=== PATIENT | female | born 1955 | race Caucasian/White ===

== ENCOUNTER 2016-03-08 16:39 | Inpatient (IN) | payer MEDICARE, OTHER ==
[2016-03-08] MEDS ORDERED: LORAZEPAM CARPU-JECT 2 MG/ML DISP.SYRIN ONE (16:45)
[2016-03-08] MEDS ORDERED: ACETAMINOPHEN INJECTION 100 ML IVPB ONE (16:52)
--- NOTE | 2016-03-08 16:53 | PDOC ---
History of Present Illness - General History Source: Family Exam Limitations: No Limitations - History of Present Illness Initial Comments: 03/08/16 19:01 The patient is a 60 year old female, with a significant past medical history of asthma, COPD, migraines, chronic back pain(on pain medication) and possible dx of lung ca<?> per family members, who presents to the emergency department via EMS with family complaining of seizure like activity. The son notes that he found the patient in tonic-clonic seizure and patient has no history of seizure. As per EMS patient was not seizing upon their arrival patient was found to be a little tachycardia, BP of 136/86 and blood sugar was 110. As per son the patient is not very open about her medical history therefore they are not sure of her lung ca. As per son the patient has not been feeling well for couple of days. He notes that she had decreased appetite, diffused body aches and vomiting, and thought hse had the flu. She has been coughing more. According to family she has no history of alcohol or illicit drug use. She sees pain mangement for chronic back pain. PCP - Dr. Giang <Nell West - Last Filed: 03/08/16 19:18> <Astrdi Garcia - Last Filed: 03/08/16 21:27> <Jens Rutledge - Last Filed: 03/11/16 07:32> - General Chief Complaint: Altered Mental Status Stated Complaint: ALTERED MENTAL STATUS Time Seen by Provider: 03/08/16 16:53 Past History <Nell West - Last Filed: 03/08/16 19:18> <Astrid Garcia - Last Filed: 03/08/16 21:27> - Past Medical History Anemia: No Asthma: Yes Cancer: No Cardiac Disorders: No CVA: No COPD: Yes CHF: No Dementia: No Diabetes: No GI Disorders: No Disorders: No HTN: No Hypercholesterolemia: No Liver Disease: No Seizures: No Thyroid Disease: No - Surgical History Abdominal Surgery: No Appendectomy: No Cardiac Surgery: No Cholecystectomy: No Lung Surgery: No Neurologic Surgery: No Orthopedic Surgery: No - Psycho/Social/Smoking Cessation Hx Anxiety: Yes Suicidal Ideation: No Smoking Status: Yes Smoking History: Current every day smoker Number of Cigarettes Smoked Daily: 10 'Breaking Loose' booklet given: 04/26/15 Hx Alcohol Use: No Drug/Substance Use Hx: No Substance Use Type: None <Jens Rutledge - Last Filed: 03/11/16 07:32> - Past Medical History Allergies/Adverse Reactions: Allergies Allergy/AdvReac Type Severity Reaction Status Date / Time aspirin Allergy Verified 03/08/16 16:54 ibuprofen AdvReac Verified 03/08/16 16:54 Home Medications: Ambulatory Orders Pregabalin [Lyrica] 200 mg PO TID 07/16/13 Acetaminophen/Caffeine/Butalb [Fioricet -] 1 tab PO TID PRN 04/26/15 Albuterol Sulfate Inhaler - [Ventolin Hfa Inhaler -] 1 inh PO BID PRN 04/27/15 Hydrocodone/Acetaminophen [Vicodin 5-300 mg Tablet] 1 each PO PRN MDD 6 Oxycodone HCl 20 mg TID PRN 03/10/16 Review of Systems - Review of Systems Able to Perform ROS?: Yes Comments:: 03/08/16 19:02 Unable to obtain due to patient's mental status. <Nell West - Last Filed: 03/08/16 19:18> *Physical Exam - Vital Signs Last Vital Signs Temp Pulse Resp BP Pulse Ox 101 F H 67 24 122/70 93 L 03/08/16 17:25 03/08/16 18:40 03/08/16 18:40 03/08/16 18:40 03/08/16 18:40 - Physical Exam Comments: 03/08/16 19:02 GENERAL: The patient has er eheys closed, withdraws to pain, and sometimes will grunt in response to questions.. HEAD: Normocephalic, atraumatic. EYES: extraocular movements intact, sclera anicteric, conjunctiva clear. ENT: Normal voice, Moist mucous membranes. NECK: Normal range of motion, No JVD LUNGS: rhochourus breath sounds. HEART: Regular rate and rhythm, normal S1 and S2 without murmur, rub or gallop. ABDOMEN: diffusely tender to palpation EXTREMITIES: Normal range of motion, no edema. NEUROLOGICAL: No facial asymmetry, moving all 4 extremities spontaneously and symmetrically PSYCH: Normal mood, normal affect. SKIN: Warm, Dry, normal turgor. <Nell West - Last Filed: 03/08/16 19:18> - Vital Signs Last Vital Signs Temp Pulse Resp BP Pulse Ox 101 F H 67 24 122/70 93 L 03/08/16 17:25 03/08/16 18:40 03/08/16 18:40 03/08/16 18:40 03/08/16 18:40 <GarciaAstrid - Last Filed: 03/08/16 21:27> Heart Score/ECG Review - ECG Impressions Comment:: 03/08/16 18:48 Twelve-lead EKG was performed and reviewed by me. There is normal sinus rhythm with a normal rate. Rate of 93 The axis is normal. The intervals are normal. There is normal R wave progression There are no ST or T wave abnormalities. <Jens Rutledge - Last Filed: 03/11/16 07:32> ED Treatment Course - LABORATORY CBC & Chemistry Diagram: 03/08/16 17:10 03/08/16 17:49 - ADDITIONAL ORDERS Additional order review: Laboratory Results 03/08/16 03/08/16 03/08/16 17:55 17:25 17:10 INR PTT (Actin FS) VBG pH 7.15 L* POC VBG pCO2 63.6 H* POC VBG pO2 56.2 H Sodium Potassium Chloride Carbon Dioxide Anion Gap BUN Creatinine Creat Clearance w eGFR Random Glucose Lactic Acid Cancelled Calcium Total Bilirubin AST ALT Alkaline Phosphatase Creatine Kinase Troponin I Total Protein Albumin Urine Color Yellow Urine Appearance Clear Urine pH 6.0 Ur Specific [place] 1.015 Urine Protein 2+ H Urine Glucose (UA) Negative Urine Ketones 1+ H Urine Blood 2+ H Urine Nitrite Negative Urine Bilirubin Negative Urine Urobilinogen Negative Ur Leukocyte Esterase Negative 03/08/16 03/08/16 17:10 17:10 INR Cancelled PTT (Actin FS) Cancelled VBG pH POC VBG pCO2 POC VBG pO2 Sodium Cancelled Potassium Cancelled Chloride Cancelled Carbon Dioxide Cancelled Anion Gap Cancelled BUN Cancelled Creatinine Cancelled Creat Clearance w eGFR Cancelled Random Glucose Cancelled Lactic Acid Calcium Cancelled Total Bilirubin Cancelled AST Cancelled ALT Cancelled Alkaline Phosphatase Cancelled Creatine Kinase Cancelled Troponin I Cancelled Total Protein Cancelled Albumin Cancelled Urine Color Urine Appearance Urine pH Ur Specific [place] Urine Protein Urine Glucose (UA) Urine Ketones Urine Blood Urine Nitrite Urine Bilirubin Urine Urobilinogen Ur Leukocyte Esterase 03/08/16 17:25 Influenza Types A,B Antigen (YULIYA) - Final Nasopharyngeal Swab - Final 03/08/16 17:10 RBC 6.16 H MCV 93.8 MCHC 31.7 L RDW 15.2 MPV 12.2 H Neutrophils % 80.1 D Lymphocytes % 10.6 D Monocytes % 8.9 Eosinophils % 0.0 D Basophils % 0.4 - RADIOLOGY Radiology Studies Ordered: 03/08/16 18:51 EXAM#: CT/HEAD CT WITHOUT CONTRAST Cranial CT without contrast Clinical information: seizure, evaluate for mass lesion In comparison to a previous CT exam of 07/16/2013 note is made of interval development of a small 1 cm low-attenuation focus within the right posterior frontal lobe at the high convexity level as well as a similar 1 cm focus within the left posterior frontal lobe. No associated mass effect is seen. On the basis of this exam it is uncertain whether these foci represents microvascular ischemic gliosis, chronic or subacute infarction versus less likely representing subtle edema due to underlying lesions. No discrete lesion can be identified on this noncontrast exam. The remainder of the exam appears unchanged. There is no extra-axial fluid collection. No midline displacement is seen. The ventricles and cisterns appear unremarkable. Involutional changes are noted. Impression: In comparison to a prior CT study of 07/16/2013 interval development of small 1 cm right and left posterior frontal hypodensity subcortical foci noted as discussed. MRI evaluation is suggested, preferably without and with intravenous contrast. - Medications Given in the ED: ED Medications Discontinued Medications Generic Name Dose Route Start Last Admin Trade Name Gena PRN Reason Stop Dose Admin Acetaminophen 650 mg 03/08/16 18:29 03/08/16 18:40 Tylenol - PO 03/08/16 18:30 Not Given ONCE ONE Acetaminophen 1,000 mg 03/08/16 17:00 03/08/16 17:00 Ofirmev Injection - IVPB 03/08/16 17:01 1,000 mg NOW ONE Administration Sodium Chloride 1,000 mls @ 1,000 mls/hr 03/08/16 16:54 03/08/16 17:49 Normal Saline - IV 03/08/16 17:53 1,000 mls/hr ASDIR STA Administration Lorazepam 1 mg 03/08/16 17:01 03/08/16 16:50 Ativan Injection - IVPUSH 03/08/16 17:02 1 mg ONCE ONE Administration Morphine Sulfate 4 mg 03/08/16 18:19 03/08/16 18:38 Morphine Injection - IVPUSH 03/08/16 18:20 4 mg ONCE ONE Administration <Luis Westyna - Last Filed: 03/08/16 19:18> - LABORATORY CBC & Chemistry Diagram: 03/08/16 17:10 03/08/16 17:49 - ADDITIONAL ORDERS Additional order review: Laboratory Results 03/08/16 03/08/16 03/08/16 19:15 18:00 17:55 INR PTT (Actin FS) Anticoagulation Therapy Y Puncture Site Right radial ABG pH 7.45 ABG pCO2 at Pt Temp 38.0 ABG pO2 at Pt Temp 58.4 L ABG HCO3 25.9 ABG O2 Sat (Measured) 89.0 L ABG O2 Content 20.7 ABG Base Excess 2.5 H Sabino Test Positive VBG pH 7.15 L* POC VBG pCO2 63.6 H* POC VBG pO2 56.2 H O2 Delivery Device Y Oxygen Flow Rate 21% Vent Mode Y Vent Rate Y Mechanical Rate Y PEEP 0.0 Pressure Support Vent Y Sodium Potassium Chloride Carbon Dioxide Anion Gap BUN Creatinine Creat Clearance w eGFR Random Glucose Lactic Acid 4.258 H* Calcium Total Bilirubin AST ALT Alkaline Phosphatase Creatine Kinase Troponin I Total Protein Albumin Urine Color Urine Appearance Urine pH Ur Specific [place] Urine Protein Urine Glucose (UA) Urine Ketones Urine Blood Urine Nitrite Urine Bilirubin Urine Urobilinogen Ur Leukocyte Esterase Urine RBC Urine WBC Granular Casts Urine Mucus 03/08/16 03/08/16 03/08/16 17:49 17:49 17:49 INR 1.09 PTT (Actin FS) Anticoagulation Therapy Puncture Site ABG pH ABG pCO2 at Pt Temp ABG pO2 at Pt Temp ABG HCO3 ABG O2 Sat (Measured) ABG O2 Content ABG Base Excess Sabino Test VBG pH POC VBG pCO2 POC VBG pO2 O2 Delivery Device Oxygen Flow Rate Vent Mode Vent Rate Mechanical Rate PEEP Pressure Support Vent Sodium 143 Potassium 3.0 L Chloride 103 Carbon Dioxide 27 Anion Gap 13 BUN 13 D Creatinine 0.8 D Creat Clearance w eGFR > 60 Random Glucose 109 H Lactic Acid Calcium 9.3 Total Bilirubin 0.9 D AST 32 D ALT 24 Alkaline Phosphatase 214 H D Creatine Kinase 61 Troponin I 0.10 H Total Protein 6.6 Albumin 3.6 Urine Color Urine Appearance Urine pH Ur Specific [place] Urine Protein Urine Glucose (UA) Urine Ketones Urine Blood Urine Nitrite Urine Bilirubin Urine Urobilinogen Ur Leukocyte Esterase Urine RBC Urine WBC Granular Casts Urine Mucus 03/08/16 03/08/16 03/08/16 17:25 17:10 17:10 INR PTT (Actin FS) Anticoagulation Therapy Puncture Site ABG pH ABG pCO2 at Pt Temp ABG pO2 at Pt Temp ABG HCO3 ABG O2 Sat (Measured) ABG O2 Content ABG Base Excess Sabino Test VBG pH POC VBG pCO2 POC VBG pO2 O2 Delivery Device Oxygen Flow Rate Vent Mode Vent Rate Mechanical Rate PEEP Pressure Support Vent Sodium Cancelled Potassium Cancelled Chloride Cancelled Carbon Dioxide Cancelled Anion Gap Cancelled BUN Cancelled Creatinine Cancelled Creat Clearance w eGFR Cancelled Random Glucose Cancelled Lactic Acid Cancelled Calcium Cancelled Total Bilirubin Cancelled AST Cancelled ALT Cancelled Alkaline Phosphatase Cancelled Creatine Kinase Cancelled Troponin I Cancelled Total Protein Cancelled Albumin Cancelled Urine Color Yellow Urine Appearance Clear Urine pH 6.0 Ur Specific [place] 1.015 Urine Protein 2+ H Urine Glucose (UA) Negative Urine Ketones 1+ H Urine Blood 2+ H Urine Nitrite Negative Urine Bilirubin Negative Urine Urobilinogen Negative Ur Leukocyte Esterase Negative Urine RBC 16 Urine WBC <1 Granular Casts 1 Urine Mucus Rare 03/08/16 17:10 INR Cancelled PTT (Actin FS) Cancelled Anticoagulation Therapy Puncture Site ABG pH ABG pCO2 at Pt Temp ABG pO2 at Pt Temp ABG HCO3 ABG O2 Sat (Measured) ABG O2 Content ABG Base Excess Sabino Test VBG pH POC VBG pCO2 POC VBG pO2 O2 Delivery Device Oxygen Flow Rate Vent Mode Vent Rate Mechanical Rate PEEP Pressure Support Vent Sodium Potassium Chloride Carbon Dioxide Anion Gap BUN Creatinine Creat Clearance w eGFR Random Glucose Lactic Acid Calcium Total Bilirubin AST ALT Alkaline Phosphatase Creatine Kinase Troponin I Total Protein Albumin Urine Color Urine Appearance Urine pH Ur Specific [place] Urine Protein Urine Glucose (UA) Urine Ketones Urine Blood Urine Nitrite Urine Bilirubin Urine Urobilinogen Ur Leukocyte Esterase Urine RBC Urine WBC Granular Casts Urine Mucus 03/08/16 17:25 Influenza Types A,B Antigen (YULIYA) - Final Nasopharyngeal Swab - Final 03/08/16 17:10 RBC 6.16 H MCV 93.8 MCHC 31.7 L RDW 15.2 MPV 12.2 H Neutrophils % 80.1 D Lymphocytes % 10.6 D Monocytes % 8.9 Eosinophils % 0.0 D Basophils % 0.4 - Medications Given in the ED: ED Medications Discontinued Medications Generic Name Dose Route Start Last Admin Trade Name Gena PRN Reason Stop Dose Admin Acetaminophen 650 mg 03/08/16 18:29 03/08/16 18:40 Tylenol - PO 03/08/16 18:30 Not Given ONCE ONE Acetaminophen 1,000 mg 03/08/16 17:00 03/08/16 17:00 Ofirmev Injection - IVPB 03/08/16 17:01 1,000 mg NOW ONE Administration Sodium Chloride 1,000 mls @ 1,000 mls/hr 03/08/16 16:54 03/08/16 17:49 Normal Saline - IV 03/08/16 17:53 1,000 mls/hr ASDIR STA Administration Lorazepam 1 mg 03/08/16 17:01 03/08/16 16:50 Ativan Injection - IVPUSH 03/08/16 17:02 1 mg ONCE ONE Administration Morphine Sulfate 4 mg 03/08/16 18:19 03/08/16 18:38 Morphine Injection - IVPUSH 03/08/16 18:20 4 mg ONCE ONE Administration <Astrid Garcia - Last Filed: 03/08/16 21:27> - LABORATORY CBC & Chemistry Diagram: 03/11/16 05:05 03/11/16 05:05 <Jens Rutledge - Last Filed: 03/11/16 07:32> Medical Decision Making - Medical Decision Making 03/08/16 19:13 A page was put out to [facility] who covers for Dr. Giang. 03/08/16 19:18 Awaiting call back from Dr. Maddox. <Nell West - Last Filed: 03/08/16 19:18> - Medical Decision Making 03/08/16 16:58 60y F hx of chronic back pain, ?possible new ca diagnosis per family? presents with seizure - pt had witnessed tonic clonic seizure per family for several minutes, by the time EMS arrived pt was altered, vitals showed tachycardia, bp was 130s/systolic, bgm was 110 per EMS. On arrival pt had focal seizure, was gazing to the left with jerking of the LUE, seizure lasted for approx 90 seconds , ceased before ativan was given. Pt also noted to be febrile to 101 here. sepsis protocol initiated will obtain CT ofhead to r/o ICH will obtain blood work 03/08/16 18:12 pt now more awake, but moaning, but will not speak and seems to get annoyed when i keep asking her where her pain is. unclear if she cannot speak or does not want to speak. the pts boyfriend is bedside, states that she has been moaning for a couple of days, no associated fever, new cough, she has done that in the past, but it resolved after a few days. family now says there was questionable mass in her pelvis diagnosed several years ago and that she was complaining of pain in the LUQ for the past several days on repeat exam pt has diffuse abdominal tenderness with alot of maoning but will not localize her pain her cbc noted for eleuvated leukocytosis pt hgb noted to be elevated --? dehydration vs. polycytemic - pt sat was noted around 88-91 on RA - pt placed on NC - ?chronic secondary to COPD? pt is a chronic smoker - cxr shows no acute lung changes, ?upper isidoro haziness/infiltrate? vbg shows with elevated pco2 - will repeat as I beleive this is abnormal secondary to her seizure rest of blood work was hemolyzed will obtain ct of abdomen with IV contrast 03/08/16 18:32 03/08/16 18:48 03/08/16 18:51 repeat ABG shows ph is normal. ct head noed for interval development of 1cm right and left posterior frontalhypodensity with subcortical foci - will fu with neuro consult and mri - ? malignancy? jess sign out to dr. garcia to fu with lab results and ct abdomen will likely need admission for further management pt written for [facility] for empric coverage -?abd coverage A portion of this note was documented by scribe services under my direction. I have reviewed the details of the note, within reason, and agree with the documentation with the following case summary and management plan written by me 03/08/16 19:33 case was d/w dr. maddox, pending dispo pt signed out to dr. garcia to fu with results. will dispo after repeat labs and ct are back CRITICAL CARE DOCUMENTATION: I spent ~35 minutes of Critical Care time, excluding separately billable procedures, involving high complexity decision making to assess, manipulate and support vital system function(s) to treat single or multiple vital organ system failure and/or to prevent further life threatening deterioration of the patient' s condition. <Jens Rutledge - Last Filed: 03/11/16 07:32> *DC/Admit/Observation/Transfer - Attestations Scribe Attestion: 03/08/16 19:02 Documentation prepared by FILEMON Hansen, acting as medical equipment sales for Jens Rutledge MD. <Nell West - Last Filed: 03/08/16 19:18> - Discharge Dispostion Admit: Yes <Astrid Garcia - Last Filed: 03/08/16 21:27> <Jens Rutledge - Last Filed: 03/11/16 07:32> Diagnosis at time of Disposition: Altered mental status, Fever, New onset seizure, Elevated troponin, Hypokalemia , Hypoxemia, Fall - Referrals
[2016-03-08] MEDS ORDERED: SODIUM CHLORIDE 1,000 ML IV STA (16:54)
[2016-03-08] MEDS ORDERED: ACETAMINOPHEN 1000 MG/100 ML VIAL (NON FORMULARY) IVPB ONE (17:00)
[2016-03-08] MEDS ORDERED: LORAZEPAM CARPU-JECT 2 MG/ML DISP.SYRIN IVPUSH ONE (17:01)
[2016-03-08 17:16] LABS: BASOPHIL 0.4 % (0-2.0); MCH 29.7 pg (25.7-33.7); MCHC 31.7 g/dl (32.0-36.0); MEAN CELL VOLUME 93.8 fl (80-96); MEAN PLT VOLUME 12.2 fl (7.5-11.1); NEUTROPHILS 80.1 % (42.8-82.8); PLATELET COUNT 189 K/MM3 (134-434); RDW 15.2 % (11.6-15.6); WHITE BLOOD COUNT 14.9 K/mm3 (4.0-10.0)
[2016-03-08 17:51] LABS: URINE APPEARANCE CLEAR; URINE BILIRUBIN NEGATIVE (NEGATIVE); URINE COLOR YELLOW; URINE GLUCOSE (UA) NEGATIVE (NEGATIVE); URINE KETONE 1+ (NEGATIVE); URINE LEUK ESTERASE NEGATIVE (NEGATIVE); URINE NITRITE NEGATIVE (NEGATIVE); URINE UROBILINOGEN NEGATIVE E.U./dl (0.2-1.0)
[2016-03-08 17:52] LABS: URINE BLOOD 2+ (NEGATIVE); URINE PROTEIN 2+ (NEGATIVE)
[2016-03-08 18:01] LABS: VENOUS BLOOD GAS HCO3 21.2 meq/L (22-29)
[2016-03-08 18:03] LABS: VENOUS PH 7.15 (7.31-7.41)
[2016-03-08] MEDS ORDERED: morphine CARPU-JECT 4 MG/1 ML DISP.SYRIN IVPUSH ONE (18:19)
[2016-03-08] MEDS ORDERED: ACETAMINOPHEN 325 MG TABLET (FP) PO ONE (18:29)
[2016-03-08] MEDS ORDERED: morphine CARPU-JECT 4 MG/1 ML DISP.SYRIN ONE (18:29)
[2016-03-08 18:46] LABS: GRANULAR CASTS 1 /lpf; URINE MUCUS RARE; URINE RBC 16 /hpf (0-3); URINE WBC <1 /hpf (3-5)
[2016-03-08 18:59] LABS: ALBUMIN 3.6 g/dl (3.4-5.0); ANION GAP 13 (8-16); BILIRUBIN,TOTAL 0.9 mg/dL (0.2-1.0); CALCIUM 9.3 mg/dL (8.5-10.1); CO2 27 mmol/L (21-32); CREATININE 0.8 mg/dL (0.55-1.02); GLUCOSE,RANDOM 109 mg/dL (74-106); SGOT/AST 32 U/L (15-37); SGPT/ALT 24 U/L (12-78); TOT PROT 6.6 g/dl (6.4-8.2)
[2016-03-08 19:00] LABS: ALK PHOS 214 U/L (45-117); TROPONIN I 0.1 ng/ml (0.00-0.05)
[2016-03-08 19:13] LABS: INR 1.09 (0.82-1.09)
[2016-03-08] MEDS ORDERED: KCL 10 MEQ IVPB 100 ML IVPB SCH (19:15)
[2016-03-08] MEDS ORDERED: PIPERACILLIN/TAZOB 3.375 GM 3.375 GM in DEXTROSE 5%-WATER - 50 ML IVPB ONE (19:16)
[2016-03-08] MEDS ORDERED: KCL 10 MEQ IVPB 100 ML IVPB ONE (19:18)
[2016-03-08 19:19] LABS: ARTERIAL BLOOD GAS PO2 58.4 mmHg (80-100); ARTERIAL BLOOD GAS pH 7.45 (7.35-7.45)
[2016-03-08 19:20] LABS: ALLENS TEST POSITIVE; ART PUNCT SITE RIGHT RADIAL; ARTERIAL BLOOD GAS BASE EXCESS 2.5 meq/l (-2-2); ARTERIAL BLOOD GAS HCO3 25.9 meq/L (22-26); LPM/O2% 21%; PT. ON O2? NO
[2016-03-08] MEDS ORDERED: MAGNESIUM SULF 50% (8.12 MEQ/2 ML-1 GM VIAL) IVPB ONE (19:32)
[2016-03-08 19:39] LABS: URINE MARIJUANA THC NEGATIVE ng/ml (CUTOFF=50)
[2016-03-08] MEDS ORDERED: PIPERACILLIN/TAZOB 3.375 GM 50 ML IVPB ONE (20:09)
[2016-03-08] MEDS ORDERED: MAGNESIUM SULF 50% (8.12 MEQ/2 ML-1 GM VIAL) ONE (20:09)
[2016-03-08 22:32] LABS: TROPONIN I 0.13 ng/ml (0.00-0.05)
[2016-03-08] MEDS ORDERED: morphine CARPU-JECT 2 MG/1 ML DISP.SYRIN IVPUSH ONE ×2 (23:09→23:39)
--- NOTE | 2016-03-08 23:09 | CONSULT ---
Consult Consult Specialty:: Pulm/CC - History of Present Illness History of Present Illness: Pt is a 60yr old woman with PMHx of COPD, migraines and chronic back pain. Per family there is concern for possible lung ca/gastric mass? Pt presents today via EMS with CC of seizure like activity. Per family pt has had AMS x3 days with vomiting. In the ER found to have WBC 14.9 with lactic of 4.258, troponin 0.1, hypoxic on abg with PO2 of 58.4 on RA, K 3.0, tox screen positive for opiates and barbituates (pt takes vicodin at home). Pt admitted to the ICU for further management. Upon assessment pt is combative and appears confused, not responding appropriately to questions. Family at bedside states that pt is "stubborn" but that this is no her baseline. 122/61, HR 50-70s, mid 90%o2 on NC , RR 17 afebrile. - History Source History Provided By: Patient, Family Member, Medical Record Limitations to Obtaining History: Other (clinical condition/poor historian, combative/uncooperative) - Alcohol/Substance Use Hx Alcohol Use: No - Smoking History Smoking history: Current every day smoker Aproximately how many cigarettes per day: 10 Home Medications - Allergies Allergies/Adverse Reactions: Allergies Allergy/AdvReac Type Severity Reaction Status Date / Time aspirin Allergy Verified 03/08/16 16:54 ibuprofen AdvReac Verified 03/08/16 16:54 - Home Medications Home Medications: Ambulatory Orders Pregabalin [Lyrica] 150 mg PO DAILY 07/16/13 Acetaminophen/Caffeine/Butalb [Fioricet -] 1 tab PO Q4H PRN 04/26/15 Albuterol Sulfate Inhaler - [Ventolin Hfa Inhaler -] 1 - 2 inh PO QID 04/27/15 Hydrocodone/Acetaminophen [Vicodin 5-300 mg Tablet] 1 each PO PRN MDD 6 Family Disease History - Family Disease History Family History: Unable to Obtain Review of Systems Unable to obtain ROS, reason: limited exam, denies all Physical Exam Vital Signs: Vital Signs Period Temp Pulse Resp BP Sys/Forrest Pulse Ox Last 24 Hr 101 F-101.0 F 28-122 22-26 120-133/62-88 92-100 Intake & Output 01/1103/06/16 03/07/16 03/08/16 23:59 23:59 23:59 23:59 Intake Total 1000 Output Total 150 Balance 850 Weight 100 lb Constitutional: Yes: Mild Distress, Poor Hygeine, Thin Eyes: Yes: Other (refuses assessment) HENT: Yes: Other (poor oral hygiene, black/red crusted material in mouth) Neck: Yes: WNL Cardiovascular: Yes: S1, S2 Respiratory: Yes: Other (limited exam due to pt condition, no adventitious breath sounds appreciated) Gastrointestinal: Yes: Normal Bowel Sounds. No: Tenderness ...Rectal Exam: Yes: Deferred Renal/: Yes: [place] Present (yellow output) Musculoskeletal: Yes: WNL Extremities: Yes: WNL Edema: No Peripheral Pulses WNL: Yes (+2 bilateral pedal pulses) Integumentary: Yes: Other (slightly dry) Neurological: Yes: Confusion Psychiatric: Yes: Agitated Labs: Abnormal Lab Results 03/08/16 03/08/16 03/08/16 17:10 17:25 17:49 WBC 14.9 H D RBC 6.16 H Hgb 18.3 H Hct 57.8 H MCHC 31.7 L MPV 12.2 H ABG pO2 at Pt Temp ABG O2 Sat (Measured) ABG Base Excess VBG pH POC VBG pCO2 POC VBG pO2 Potassium Random Glucose Lactic Acid Alkaline Phosphatase Troponin I 0.10 H Urine Protein 2+ H Urine Ketones 1+ H Urine Blood 2+ H 03/08/16 03/08/16 03/08/16 17:49 17:55 18:00 WBC RBC Hgb Hct MCHC MPV ABG pO2 at Pt Temp ABG O2 Sat (Measured) ABG Base Excess VBG pH 7.15 L* POC VBG pCO2 63.6 H* POC VBG pO2 56.2 H Potassium 3.0 L Random Glucose 109 H Lactic Acid 4.258 H* Alkaline Phosphatase 214 H D Troponin I Urine Protein Urine Ketones Urine Blood 03/08/16 03/08/16 19:15 21:52 WBC RBC Hgb Hct MCHC MPV ABG pO2 at Pt Temp 58.4 L ABG O2 Sat (Measured) 89.0 L ABG Base Excess 2.5 H VBG pH POC VBG pCO2 POC VBG pO2 Potassium Random Glucose Lactic Acid Alkaline Phosphatase Troponin I 0.13 H Urine Protein Urine Ketones Urine Blood Imaging - Results Chest X-ray: Image Reviewed X-ray: Image Reviewed Cat Scan: Report Reviewed (ab/pel prelim, head ct) Assessment/Plan Pt is a 60yr old woman with PMHx of COPD, migraines and chronic back pain. Now in the ICU for management of possible new onset seizure activity with AMS, leukocytosis. Pulm: Hypoxia, likely chronic -O2 support for sat >90% -Nebulizers standing and prn -Consider chest CT Neuro: Possible seizure, AMS -Consult -s/p head CT, f/u MRI -Seizure precautions -Ativan prn -Neuro checks -Consider EEG -Pain management (will use morphine for now in setting of +trop) ID: Leukocytosis, lactic acidosis -Consult -f/u cultures -Empiric Ceftriaxone, Vanc, Azithro started Cardiac: +troponin. No endorsed chest pain, no ST elevation or depression appreciated. ACS vs demand -Consult -Trend troponin -f/u repeat EKG GI: Reported vomiting, reduced po intake. Pt endorsing abdominal pain. Pt with significant nsaid use, concerning for gi ulcer. family states possible gi mass? -Consult -f/u ab/pel ct -Will start daily ppi -Unable to give bismuth due to asa allergy -Stool softener Renal: Hemoconcentrated, likely from dehydration -IVF as tolerated -Replete electrolytes prn Prophylactic -Continue home Lyrica/Fioricet -DVT
[2016-03-08] MEDS ORDERED: VANCOMYCIN 1 GRAM (PRE-DOCKED) 250 ML IVPB ONE (23:16)
[2016-03-08] MEDS ORDERED: LACTATED RINGERS SOLUTION 1,000 ML IV SCH (23:30)
[2016-03-08] MEDS ORDERED: DEXTROSE 5%-LACTATED RINGERS 1,000 ML IV SCH (23:30)
[2016-03-08 23:34] LABS: MAGNESIUM 3.4 mg/dL (1.8-2.4); PHOSPHOROUS 3.3 mg/dL (2.5-4.9)
[2016-03-08] MEDS ORDERED: ALBUTEROL SO4 0.083% IH SOL 2.5 MG/3 ML VIAL.NEB. NEB PRN (23:40)
[2016-03-09] MEDS ORDERED: AZITHROMYCIN IVPB 500 MG in DEXTROSE 5%-WATER - 250 ML IVPB ONE (00:11)
[2016-03-09] MEDS ORDERED: SODIUM CHLORIDE 500 ML IV STA (00:17)
[2016-03-09] MEDS ORDERED: PREGABALIN 75 MG CAPSULE PO ONE (00:46)
[2016-03-09] MEDS ORDERED: POLYETHYLENE GLYCOL 3350 119 GM BTL PO ONE (00:50)
[2016-03-09] MEDS ORDERED: AZITHROMYCIN IVPB 500 MG/250 ML D5W PRE-DOCKED IVPB ONE (01:00)
[2016-03-09] MEDS: DEXTROSE 5%-LACTATED RINGERS 1,000 ML IV SCH ×3 (01:12→23:53)
[2016-03-09 02:07] LABS: TROPONIN I 0.12 ng/ml (0.00-0.05)
[2016-03-09 02:49] VITALS: BMI 15.1
[2016-03-09] MEDS ORDERED: LORAZEPAM CARPU-JECT 2 MG/ML DISP.SYRIN IVPUSH PRN (05:01)
[2016-03-09] MEDS ORDERED: CEFTRIAXONE 1 GM in DEXTROSE 5%-WATER - 50 ML IVPB SCH (06:00)
[2016-03-09 06:31] LABS: BASOPHIL 0.2 % (0-2.0); MCHC 33.3 g/dl (32.0-36.0); MEAN CELL VOLUME 93.3 fl (80-96); MEAN PLT VOLUME 10.8 fl (7.5-11.1); NEUTROPHILS 78.3 % (42.8-82.8); PLATELET COUNT 99 K/MM3 (134-434); RDW 14.7 % (11.6-15.6)
[2016-03-09 06:49] LABS: ALBUMIN 3.1 g/dl (3.4-5.0); ANION GAP 11 (8-16); BILIRUBIN,TOTAL 1.2 mg/dL (0.2-1.0); CALCIUM 8.3 mg/dL (8.5-10.1); CO2 28 mmol/L (21-32); CREATININE 0.5 mg/dL (0.55-1.02); GLUCOSE,RANDOM 111 mg/dL (74-106); PHOSPHOROUS 3.1 mg/dL (2.5-4.9); SGOT/AST 48 U/L (15-37); SGPT/ALT 32 U/L (12-78); TOT PROT 5.8 g/dl (6.4-8.2)
[2016-03-09 06:52] LABS: ALK PHOS 192 U/L (45-117); TROPONIN I 0.09 ng/ml (0.00-0.05)
[2016-03-09] MEDS: cefTRIAXone 1 GM/50 ML BAG (PRE-DOCKED) IVPB SCH (07:16)
[2016-03-09] MEDS: KCL 10 MEQ IVPB 100 ML IVPB SCH ×8 (07:17→23:52)
[2016-03-09] MEDS: ALBUTEROL SO4 2.5/IPRATROPIUM 0.5 INH SOL 3 ML VIAL.NEB. NEB SCH ×3 (07:46→21:56)
[2016-03-09] MEDS: morphine CARPU-JECT 2 MG/1 ML DISP.SYRIN IVPUSH PRN ×3 (08:00→22:35)
--- NOTE | 2016-03-09 08:42 | PN ---
Progress Note (short form) - Note Progress Note: Pulm/CCM Pt Seen and examined in the ICU 24 HR: was intermittently agitated overnight this morning conversant but evasive and despondent VS stable no further seizure activity awaiting read of CTAB Ambulatory Orders Pregabalin [Lyrica] 150 mg PO DAILY 07/16/13 Acetaminophen/Caffeine/Butalb [Fioricet -] 1 tab PO Q4H PRN 04/26/15 Albuterol Sulfate Inhaler - [Ventolin Hfa Inhaler -] 1 - 2 inh PO QID 04/27/15 Hydrocodone/Acetaminophen [Vicodin 5-300 mg Tablet] 1 each PO PRN MDD 6 Active Medications Albuterol Sulfate (Ventolin 0.083% Nebulizer Soln -) 1 amp NEB Q4H PRN PRN Reason: SHORT OF BREATH/WHEEZING Albuterol/Ipratropium (Duoneb -) 1 amp NEB TIDR [facility] Last Admin: 03/09/16 07:46 Dose: Not Given Ceftriaxone Sodium (Rocephin 1gm Ivpb (Pre-Docked)) 1 gm IVPB DAILY@06 [facility] Last Admin: 03/09/16 07:16 Dose: 1 gm Dextrose/Lactated Ringer's (D5-Lr -) 1,000 mls @ 100 mls/hr IV ASDIR [facility] Last Admin: 03/09/16 01:12 Dose: 100 mls/hr Azithromycin 250 mg/ Dextrose 250 mls @ 250 mls/hr IVPB DAILY@2200 [facility] Potassium Chloride (Potassium Chloride 10 Meq Premix Ivpb -) 100 mls @ 100 mls/ hr IVPB Q60M [facility] Stop: 03/09/16 09:59 Last Admin: 03/09/16 07:17 Dose: 100 mls/hr Lorazepam (Ativan Injection -) 1 mg IVPUSH Q6H PRN PRN Reason: seizure Stop: 03/10/16 05:00 Morphine Sulfate (Morphine Injection -) 1.5 mg IVPUSH Q3H PRN PRN Reason: PAIN Last Admin: 03/09/16 08:00 Dose: 1.5 mg Pantoprazole Sodium (Protonix -) 40 mg PO DAILY [facility] Pregabalin (Lyrica -) 100 mg PO BID [facility] Senna (Senna -) 1 tab PO HS [facility] CBC, BMP 03/09/16 05:20 03/09/16 05:20 Troponin, BNP 03/08/16 03/08/16 03/08/16 17:10 17:49 21:52 Troponin I Cancelled 0.10 H 0.13 H B-Natriuretic Peptide 3402.04 H 03/09/16 03/09/16 01:30 05:20 Troponin I 0.12 H 0.09 H B-Natriuretic Peptide Microbiology 03/08/16 17:25 Nasopharyngeal Swab Influenza Types A,B Antigen (YULIYA) - Final ---negative 03/08/16 17:25 Nasopharyngeal Swab - Final Vital Signs Temp 990.8 F H 03/08/16 23:00 Pulse 87 03/09/16 05:00 Resp 20 03/09/16 05:00 BP 129/74 03/09/16 05:00 Pulse Ox 92 L 03/08/16 23:00 Intake & Output 03/08/16 03/08/16 03/09/16 11:59 23:59 11:59 Intake Total 1000 1950 Output Total 150 1200 Balance 850 750 Weight 41.277 kg Intake: IV 1000 1300 D5-Lr - 1,000 ml @ 100 800 mls/hr IV ASDIR [facility] Rx#: [id number] Normal Saline - 500 ml @ 500 500 mls/hr IV ASDIR STA Rx#:[id number] IVPB 650 Output: Urine 150 1200 [place] 150 1200 Other: Voiding Method Indwelling Catheter Height 5 ft 5 in Body Mass Index (BMI) 15.1 Weight Measurement Method Built in [facility] CXR: no infiltrate, upper lobe chronic changes PE: Gen: thin frail woman, awake INAD HEENT: PERRL PULM: clear, no wheezes Pt is a 60yr old woman with PMHx of COPD, migraines and chronic back pain. Now in the ICU for management of possible new onset seizure activity with AMS, leukocytosis. Pulm: Hypoxia, likely chronic given polycythemia. 40+ pack year hx, actively smoking -O2 support for sat >90% -Nebulizers standing and prn -tobacco counseling -nicotine patch Neuro: Possible seizure, AMS - Neuro consulted in ED. No AE started -s/p head CT, f/u MRI once -Seizure precautions -Ativan if active sz -Neuro checks -can restart lyrica in am if ok with Neuro ID: Leukocytosis, lactic acidosis resolved, -f/u cultures -Empiric Ceftriaxone, Vanc, Azithro started however do not have localizing source Cardiac: weakly +troponin, resolved. No endorsed chest pain, no ST elevation or depression appreciated. ACS vs demand -troponin downtrending -EKG as needed -stress test/echo can be done as outpt GI: Reported vomiting, reduced po intake. Pt endorsing abdominal pain. Pt with significant nsaid use, concerning for gi ulcer. family states hx of mass on ovary long standing. Relates anorexia and unintentional weight loss. 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
[2016-03-09] MEDS: PANTOPRAZOLE 40 MG TABLET (FP) PO SCH (09:21)
[2016-03-09] MEDS: PREGABALIN 50 MG CAPSULE PO SCH ×2 (09:21→21:38)
[2016-03-09] MEDS ORDERED: PREGABALIN 75 MG CAPSULE PO SCH (10:00)
--- NOTE | 2016-03-09 10:14 | HP ---
Admitting History and Physical - Admission History of Present Illness: 60 year old female, with a significant past medical history of asthma, COPD, migraines, chronic back pain(on pain medication) and possible dx of lung ca<?> per family members, who presents to the emergency department via EMS with family complaining of seizure like activity. The son notes that he found the patient in tonic-clonic seizure and patient has no history of seizure. As per EMS patient was not seizing upon their arrival patient was found to be a little tachycardia, BP of 136/86 and blood sugar was 110. As per son the patient is not very open about her medical history therefore they are not sure of her lung ca. As per son the patient has not been feeling well for couple of days. He notes that she had decreased appetite, diffused body aches and vomiting, and thought hse had the flu. She has been coughing more. According to family she has no history of alcohol or illicit drug use. She sees pain mangement for chronic back pain. - Past Medical History FRONT OFFICE SPEC: Yes: Migraine Cardiovascular: Yes: HTN Pulmonary: Yes: COPD, Other (QUESTION LUNG CA) Gastrointestinal: Yes: Other (GASTRIC MASS?? PER FAMILY) ...: No - Smoking History Smoking history: Current every day smoker Have you smoked in the past 12 months: Yes Aproximately how many cigarettes per day: 10 - Alcohol/Substance Use Hx Alcohol Use: No Home Medications - Allergies Allergies/Adverse Reactions: Allergies Allergy/AdvReac Type Severity Reaction Status Date / Time aspirin Allergy Verified 03/08/16 16:54 ibuprofen AdvReac Verified 03/08/16 16:54 - Home Medications Home Medications: Ambulatory Orders Pregabalin [Lyrica] 150 mg PO DAILY 07/16/13 Acetaminophen/Caffeine/Butalb [Fioricet -] 1 tab PO Q4H PRN 04/26/15 Albuterol Sulfate Inhaler - [Ventolin Hfa Inhaler -] 1 - 2 inh PO QID 04/27/15 Hydrocodone/Acetaminophen [Vicodin 5-300 mg Tablet] 1 each PO PRN MDD 6 Review of Systems - Review of Systems Constitutional: reports: Lethargy, Weakness Cardiovascular: denies: Chest Pain Respiratory: reports: SOB Gastrointestinal: reports: Abdominal Pain Neurological: reports: Seizure, Weakness Physical Examination Vital Signs: Vital Signs Temperature 990.8 F H 03/08/16 23:00 Pulse Rate 82 03/09/16 08:54 Respiratory Rate 20 03/09/16 08:54 Blood Pressure 128/71 03/09/16 08:54 O2 Sat by Pulse Oximetry (%) 92 L 03/08/16 23:00 Cardiovascular: Yes: S1, S2 Respiratory: Yes: Diminished, On Nasal O2 Gastrointestinal: Yes: Normal Bowel Sounds, Soft. No: Tenderness Edema: No Neurological: Yes: Lethargy, Weakness Labs: CBC, BMP 03/09/16 05:20 03/09/16 05:20 Imaging - Results Cat Scan: Report Reviewed (OF HEAD --LUCENCY) Problem List - Problems (1) Altered mental status Assessment/Plan: MAYBE DUE TO SEIZURE MONITOR MRI OF HEAD--R/O METS Code(s): R41.82 - ALTERED MENTAL STATUS, UNSPECIFIED (2) Elevated troponin Assessment/Plan: FOLLOW CE EKG CARDIO Code(s): R79.89 - OTHER SPECIFIED ABNORMAL FINDINGS OF BLOOD CHEMISTRY (3) Fever Assessment/Plan: R/O PNA R/O COLITIS IV BAX ID Code(s): R50.9 - FEVER, UNSPECIFIED (4) Hypokalemia Assessment/Plan: REPLACE AND MONITOR Code(s): E87.6 - HYPOKALEMIA (5) New onset seizure Assessment/Plan: MAY BE DUE TO LESIONS MRI NEURO Code(s): R56.9 - UNSPECIFIED CONVULSIONS (6) Brain lesion Assessment/Plan: MRI Code(s): G93.9 - DISORDER OF BRAIN, UNSPECIFIED (7) Cancer Assessment/Plan: BY HISTORY--OBTAIN RECORDS Code(s): C80.1 - MALIGNANT (PRIMARY) NEOPLASM, UNSPECIFIED
[2016-03-09] MEDS ORDERED: NICOTINE 14 MG/24 HOURS TOPICAL PATCH TD SCH (11:00)
--- NOTE | 2016-03-09 11:07 | PN ---
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
--- NOTE | 2016-03-09 12:09 | CONSULT ---
Consult Consult Specialty:: GI Referred by:: Dr Salgado Reason for Consultation:: weight loss-R/O malignancy - History of Present Illness Chief Complaint: seizure activity, recent L sided abdominal pain History of Present Illness: 60 F with h/o COPD, chronic back pain (Vicodin BID) admitted after being found at home with seizure-like activity. 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 CT abd/pelvis shows thickening of L colon described as possible colitis. She states she has normal BM daily with no blood. states she has been c/o L sided abdominal pain recently. She denies early satiety but daughter states 30 lb weight loss over the past 6 months. She was noted to have a lactate of 4.25 on admission and was hypoxic with pO2 of 58. 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 PER FAMILY) ...: No - Alcohol/Substance Use Hx Alcohol Use: No - Smoking History Smoking history: Current every day smoker Have you smoked in the past 12 months: Yes Aproximately how many cigarettes per day: 10 Home Medications - Allergies Allergies/Adverse Reactions: Allergies Allergy/AdvReac Type Severity Reaction Status Date / Time aspirin Allergy Verified 03/08/16 16:54 ibuprofen AdvReac Verified 03/08/16 16:54 - Home Medications Home Medications: Ambulatory Orders Pregabalin [Lyrica] 150 mg PO DAILY 07/16/13 Acetaminophen/Caffeine/Butalb [Fioricet -] 1 tab PO Q4H PRN 04/26/15 Albuterol Sulfate Inhaler - [Ventolin Hfa Inhaler -] 1 - 2 inh PO QID 04/27/15 Hydrocodone/Acetaminophen [Vicodin 5-300 mg Tablet] 1 each PO PRN MDD 6 Physical Exam-GI Vital Signs: Vital Signs Temperature 98.3 F 03/09/16 10:00 Pulse Rate 76 03/09/16 10:32 Respiratory Rate 16 03/09/16 10:00 Blood Pressure 134/70 03/09/16 10:00 O2 Sat by Pulse Oximetry (%) 98 03/09/16 11:13 Constitutional: Yes: Cachectic HENT: Yes: Normocephalic Neck: Yes: Supple Cardiovascular: Yes: Regular Rate and Rhythm Respiratory: Yes: CTA Bilaterally Gastrointestinal Inspection: Yes: Other (scaphoid) ...Auscultate: Yes: Normoactive Bowel Sounds ...Palpate: Yes: Soft. No: Tenderness Labs: CBC, BMP 03/09/16 05:20 03/09/16 05:20 INR, PTT INR 1.09 (0.82-1.09) 03/08/16 17:49 Hepatic Panel Total Bilirubin 1.2 mg/dL (0.2-1.0) H D 03/09/16 05:20 AST 48 U/L (15-37) H D 03/09/16 05:20 ALT 32 U/L (12-78) D 03/09/16 05:20 Alkaline Phosphatase 192 U/L (45-117) H 03/09/16 05:20 Albumin 3.1 g/dl (3.4-5.0) L 03/09/16 05:20 Abnormal Lab Results 03/08/16 03/08/16 03/08/16 17:10 17:25 17:49 WBC 14.9 H D RBC 6.16 H Hgb 18.3 H Hct 57.8 H MCHC 31.7 L Plt Count MPV 12.2 H Monocytes % ABG pO2 at Pt Temp ABG O2 Sat (Measured) ABG Base Excess VBG pH POC VBG pCO2 POC VBG pO2 Potassium BUN Creatinine Random Glucose Lactic Acid Calcium Magnesium Total Bilirubin AST Alkaline Phosphatase Creatine Kinase Troponin I 0.10 H B-Natriuretic Peptide Total Protein Albumin Urine Protein 2+ H Urine Ketones 1+ H Urine Blood 2+ H 03/08/16 03/08/16 03/08/16 17:49 17:55 18:00 WBC RBC Hgb Hct MCHC Plt Count MPV Monocytes % ABG pO2 at Pt Temp ABG O2 Sat (Measured) ABG Base Excess VBG pH 7.15 L* POC VBG pCO2 63.6 H* POC VBG pO2 56.2 H Potassium 3.0 L BUN Creatinine Random Glucose 109 H Lactic Acid 4.258 H* Calcium Magnesium Total Bilirubin AST Alkaline Phosphatase 214 H D Creatine Kinase Troponin I B-Natriuretic Peptide Total Protein Albumin Urine Protein Urine Ketones Urine Blood 03/08/16 03/08/16 03/09/16 19:15 21:52 01:30 WBC RBC Hgb Hct MCHC Plt Count MPV Monocytes % ABG pO2 at Pt Temp 58.4 L ABG O2 Sat (Measured) 89.0 L ABG Base Excess 2.5 H VBG pH POC VBG pCO2 POC VBG pO2 Potassium BUN Creatinine Random Glucose Lactic Acid Calcium Magnesium 3.4 H Total Bilirubin AST Alkaline Phosphatase Creatine Kinase Troponin I 0.13 H 0.12 H B-Natriuretic Peptide 3402.04 H Total Protein Albumin Urine Protein Urine Ketones Urine Blood 03/09/16 03/09/16 05:20 05:20 WBC 11.0 H RBC 5.24 H Hgb 16.3 H D Hct 48.9 H D MCHC Plt Count 99 L D MPV Monocytes % 12.4 H ABG pO2 at Pt Temp ABG O2 Sat (Measured) ABG Base Excess VBG pH POC VBG pCO2 POC VBG pO2 Potassium 2.3 L* D BUN 6 L D Creatinine 0.5 L D Random Glucose 111 H Lactic Acid Calcium 8.3 L Magnesium Total Bilirubin 1.2 H D AST 48 H D Alkaline Phosphatase 192 H Creatine Kinase 199 H D Troponin I 0.09 H B-Natriuretic Peptide Total Protein 5.8 L Albumin 3.1 L Urine Protein Urine Ketones Urine Blood INR, PTT INR 1.09 (0.82-1.09) 03/08/16 17:49 Imaging - Results Cat Scan: Report Reviewed (mild wall thickening of the L colon suggesting possible colitis.) Assessment/Plan 60 F with above history admitted with seizure. AMS and CT findings in the brain. CT shows no evidence of a gastric mass and she has no pain or tenderness in the abdomen at this time. Rec: 1. Finding of colitis on CT No clinical evidence. Patient denies diarrhea or blood in stool but question reliability. Should have EGD and colon once acute illness resolves 2. Cachexia Patient appears malnourished. Malignancy w/u to be done including procedures when appropriate Check cortisol and tumor markers. MRI/MRCP to r/o pancreatic/biliary malignancy 3. Seizure with CT finding: neuro w/u in progress incl MR of head
--- NOTE | 2016-03-09 12:16 | CONSULT ---
Consult - text type - Consultation Consultation Note: Neurology The patient is a 60 year old female, with a significant past medical history of asthma, COPD, migraines, chronic back pain(on pain medication) and possible lung cancer per family members, who presents to the emergency department via EMS with family complaining of convulsion. The son notes that he found the patient in tonic-clonic seizure and patient has no history of seizure. CT head completed and demonstrated small 1cm area of hypodensity. Patient ordered for MRI brain to further evaluate. Patient's seizures resolved with Ativan. Patient has not been feeling well for couple of days. She has had decreased appetite, diffused body aches and vomiting, and thought she had the flu. She has been coughing more. According to family she has no history of alcohol or illicit drug use. She sees pain mangement for chronic back pain. Past History - Past Medical History Anemia: No Asthma: Yes Cancer: No Cardiac Disorders: No CVA: No COPD: Yes CHF: No Dementia: No Diabetes: No GI Disorders: No Disorders: No HTN: No Hypercholesterolemia: No Liver Disease: No Seizures: No Thyroid Disease: No - Surgical History Abdominal Surgery: No Appendectomy: No Cardiac Surgery: No Cholecystectomy: No Lung Surgery: No Neurologic Surgery: No Orthopedic Surgery: No - Psycho/Social/Smoking Cessation Hx Anxiety: Yes Suicidal Ideation: No Smoking Status: Yes Smoking History: Current every day smoker Number of Cigarettes Smoked Daily: 10 'Breaking Loose' booklet given: 04/26/15 Hx Alcohol Use: No Drug/Substance Use Hx: No Substance Use Type: None - Past Medical History Allergies/Adverse Reactions: Allergies Allergy/AdvReac Type Severity Reaction Status Date / Time aspirin Allergy Verified 03/08/16 16:54 ibuprofen AdvReac Verified 03/08/16 16:54 Home Medications: Ambulatory Orders Pregabalin [Lyrica] 150 mg PO DAILY 07/16/13 Acetaminophen/Caffeine/Butalb [Fioricet -] 1 tab PO Q4H PRN 04/26/15 Albuterol Sulfate Inhaler - [Ventolin Hfa Inhaler -] 1 - 2 inh PO QID 04/27/15 Hydrocodone/Acetaminophen [Vicodin 5-300 mg Tablet] 1 each PO PRN MDD 6 Review of Systems Negative except abvoe *Physical Exam - Vital Signs Vital Signs Temperature 98.3 F 03/09/16 10:00 Pulse Rate 84 03/09/16 12:00 Respiratory Rate 16 03/09/16 12:00 Blood Pressure 119/63 03/09/16 12:00 O2 Sat by Pulse Oximetry (%) 98 03/09/16 11:13 GENERAL: The patient has her eyes closed, but opens them to command HEAD: Normocephalic, atraumatic. EYES: extraocular movements intact, sclera anicteric, conjunctiva clear. ENT: Normal voice, Moist mucous membranes. NECK: Normal range of motion, No JVD LUNGS: rhochourus breath sounds. HEART: Regular rate and rhythm, normal S1 and S2 without murmur, rub or gallop. ABDOMEN: diffusely tender to palpation EXTREMITIES: Normal range of motion, no edema. NEUROLOGICAL: No facial asymmetry, moving all 4 extremities spontaneously and symmetrically, pain limited, sensory intact, no convulsions during encounter PSYCH: Normal mood, normal affect. SKIN: Warm, Dry, normal turgor. Laboratory Results 03/08/16 03/08/16 03/08/16 17:55 17:25 17:10 INR PTT (Actin FS) VBG pH 7.15 L* POC VBG pCO2 63.6 H* POC VBG pO2 56.2 H Sodium Potassium Chloride Carbon Dioxide Anion Gap BUN Creatinine Creat Clearance w eGFR Random Glucose Lactic Acid Cancelled Calcium Total Bilirubin AST ALT Alkaline Phosphatase Creatine Kinase Troponin I Total Protein Albumin Urine Color Yellow Urine Appearance Clear Urine pH 6.0 Ur Specific [place] 1.015 Urine Protein 2+ H Urine Glucose (UA) Negative Urine Ketones 1+ H Urine Blood 2+ H Urine Nitrite Negative Urine Bilirubin Negative Urine Urobilinogen Negative Ur Leukocyte Esterase Negative 03/08/16 17:25 Influenza Types A,B Antigen (YULIYA) - Final Nasopharyngeal Swab - Final 03/08/16 17:10 RBC 6.16 H MCV 93.8 MCHC 31.7 L RDW 15.2 MPV 12.2 H Neutrophils % 80.1 D Lymphocytes % 10.6 D Monocytes % 8.9 Eosinophils % 0.0 D Basophils % 0.4 - RADIOLOGY EXAM#: CT/HEAD CT WITHOUT CONTRAST Cranial CT without contrast Clinical information: seizure, evaluate for mass lesion In comparison to a previous CT exam of 07/16/2013 note is made of interval development of a small 1 cm low-attenuation focus within the right posterior frontal lobe at the high convexity level as well as a similar 1 cm focus within the left posterior frontal lobe. No associated mass effect is seen. On the basis of this exam it is uncertain whether these foci represents microvascular ischemic gliosis, chronic or subacute infarction versus less likely representing subtle edema due to underlying lesions. No discrete lesion can be identified on this noncontrast exam. The remainder of the exam appears unchanged. There is no extra-axial fluid collection. No midline displacement is seen. The ventricles and cisterns appear unremarkable. Involutional changes are noted. Impression: In comparison to a prior CT study of 07/16/2013 interval development of small 1 cm right and left posterior frontal hypodensity subcortical foci noted as discussed. MRI evaluation is suggested, preferably without and with intravenous contrast. Plan 60 year old female, with a significant past medical history of asthma, COPD, migraines, chronic back pain(on pain medication) and possible lung cancer per family members, who presents to the emergency department via EMS with family complaining of convulsion. The son notes that he found the patient in tonic- clonic seizure and patient has no history of seizure. CT head completed and demonstrated small 1cm area of hypodensity. Patient ordered for MRI brain to further evaluate. Patient's seizures resolved with Ativan. Would not AED for first time event at this time. Patient has not been feeling well for couple of days. She has had decreased appetite, diffused body aches and vomiting, and thought she had the flu, this may be trigger for underlying convulsive activity. ID on board and being treated with IV abx. Neurologically improved, pain medications as per PCP. Seizure precautions, if second event occurs, would consider Keppra but will hold off for now as she is stable and no history of seizures.
--- NOTE | 2016-03-09 13:00 | CONS ---
DATE OF CONSULTATION: DATE OF DICTATION: 03/09/2016 The patient is a 60-year-old female evaluated for sepsis. History was obtained primarily from the chart, as she cannot give a reliable history. She was admitted to the hospital on March 08, 2016, after a witness generalized seizure at home. According to the ER notes, the son had witnessed a generalized tonic-clonic seizure. She was taken by ambulance to the emergency room. Her course was notable for tachycardia. CAT scan of the head showed some hypo-lucent areas in the right and left posterior frontal lobes without mass effect. No discrete lesions were identified on this non-contrast study. Her ICU course has now been complicated by fever to 101. According to the notes, she had been complaining of generalized body ache and anorexia as well as a 30-pound weight loss of the past several weeks. Influenza swab done in the emergency room was negative. An HIV test done in 2013 was negative. Past medical history positive for COPD, asthma, chronic back pain. Allergies to ASPIRIN and IBUPROFEN. Medications include Zithromax, ceftriaxone, morphine, Protonix. She also received Zosyn and vancomycin in the emergency room. SOCIAL HISTORY: Lives at home with family members. Positive current tobacco use. No history of illicit drug use. No known risk factors for HIV. SYSTEMS REVIEW: Neurologic: As per HPI. Cardiac: Negative chest pain or palpitations. Respiratory: Positive for cough. Gastrointestinal: Negative vomiting or diarrhea. Genitourinary: Negative for urinary tract infection. LABORATORY DATA: White count on admission 14.9, presently 11.0, hematocrit 48.9, platelet count 99. Creatinine 0.5, potassium 2.3. Urine analysis: Less than 1 white cell, total bilirubin 1.2, alkaline phosphatase 192, AST 48, blood culture and urine culture pending. Flu swab negative. Chest x-ray negative for acute infiltrate. PHYSICAL EXAMINATION: General: She is awake but lethargic. She is oriented to person and place. She offers no complaints. She is noted to have cough. Vital Signs: T-max 101. Blood pressure 128/71. Pulse 76, regular. Respirations 20 per minute. ENT: Sclerae anicteric. Dry mucous membrane. Poor dentition. Neck: Supple. Heart Sounds: S1, S2. Lungs: Diminished breath sounds throughout. Abdomen: Soft. No tenderness elicited. No mass, rebound or rigidity. Extremities: Negative for edema. IMPRESSION: 1. Status post generalized seizure, new onset. 2. Fever, cough, possible aspiration. 3. Abnormal CT of the head, possible brain lesions versus brain abscess (less likely). 4. Doubt primary central nervous system infection. 5. 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 Await blood culture results as well as urine culture, MRI of the brain, HIV test (patient gives consent), empiric treatment for possible aspiration with ceftriaxone. CRITICAL CARE TIME SPENT: 35 minutes. Thank you for the kind referral. CARMEL BERNARDO M.D. [id number]
--- NOTE | 2016-03-09 14:36 | EKG ---
Test Reason : Blood Pressure : / mmHG Vent. Rate : 085 BPM Atrial Rate : 085 BPM P-R Int : 150 ms QRS Dur : 072 ms QT Int : 374 ms P-R-T Axes : 080 072 071 degrees QTc Int : 445 ms NORMAL SINUS RHYTHM POSSIBLE LEFT ATRIAL ENLARGEMENT ABNORMAL ECG WHEN COMPARED WITH ECG OF 08-MAR-2016 18:27, ST ELEVATION NOW PRESENT IN ANTERIOR LEADS Confirmed by SHERLY VARGAS MD ([id number]) on 03/09/2016 2:36:26 PM Referred By: Confirmed By:SHERLY VARGAS MD
--- NOTE | 2016-03-09 14:39 | EKG ---
Test Reason : Blood Pressure : / mmHG Vent. Rate : 093 BPM Atrial Rate : 093 BPM P-R Int : 146 ms QRS Dur : 076 ms QT Int : 350 ms P-R-T Axes : 076 072 070 degrees QTc Int : 435 ms NORMAL SINUS RHYTHM ABNORMAL ECG WHEN COMPARED WITH ECG OF 08-MAR-2016 17:05, PREMATURE SUPRAVENTRICULAR COMPLEXES ARE NO LONGER PRESENT MINIMAL CRITERIA FOR INFERIOR INFARCT ARE NO LONGER PRESENT ST NO LONGER DEPRESSED IN INFERIOR LEADS NONSPECIFIC T WAVE ABNORMALITY NO LONGER EVIDENT IN INFERIOR LEADS Confirmed by SHERLY VARGAS MD ([id number]) on 03/09/2016 2:39:18 PM Referred By: Confirmed By:SHERLY VARGAS MD
--- NOTE | 2016-03-09 14:41 | EKG ---
Test Reason : Blood Pressure : / mmHG Vent. Rate : 117 BPM Atrial Rate : 117 BPM P-R Int : 158 ms QRS Dur : 076 ms QT Int : 322 ms P-R-T Axes : 066 073 060 degrees QTc Int : 449 ms POOR DATA QUALITY, INTERPRETATION MAY BE ADVERSELY AFFECTED SINUS TACHYCARDIA WITH PREMATURE SUPRAVENTRICULAR COMPLEXES POSSIBLE LEFT ATRIAL ENLARGEMENT CANNOT RULE OUT INFERIOR INFARCT , AGE UNDETERMINED ABNORMAL ECG WHEN COMPARED WITH ECG OF 16-JUL-2013 05:22, SIGNIFICANT CHANGES HAVE OCCURRED Confirmed by SHERLY VARGAS MD ([id number]) on 03/09/2016 2:40:26 PM Referred By: Confirmed By:SHERLY VARGAS MD
--- NOTE | 2016-03-09 16:47 | CONSULT ---
Consult Consult Specialty:: Cardiology Referred by:: Dr Salgado Reason for Consultation:: Elevated trop I - History of Present Illness History of Present Illness: 60 yo female, smoker, with hx of asthma, COPD, migraines, chronic back pain -> on pain medication) and possible lung cancer per family members, here via EMS with family complaining of convulsion. The son notes that he found the patient in tonic-clonic seizure and patient has no history of seizure. CT head completed and demonstrated small 1cm area of hypodensity. Patient ordered for MRI brain to further evaluate. We were asked to see her for indeterminate trop levels Per her and daughter at bedside, pt has no hx of Mi, CHF or CP syndrome. She had hyperlipidemia -. treated with subsequent normalization She denies CP,, SOB , palpitations or dizziness. 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 normalization) Pulmonary: Yes: COPD, Other (QUESTION LUNG CA) Gastrointestinal: Yes: Other (GASTRIC MASS?? PER FAMILY) ...: No - Alcohol/Substance Use Hx Alcohol Use: No - Smoking History Smoking history: Current every day smoker Have you smoked in the past 12 months: Yes Aproximately how many cigarettes per day: 10 - Social History Usual Living Arrangement: With Child Home Medications - Allergies Allergies/Adverse Reactions: Allergies Allergy/AdvReac Type Severity Reaction Status Date / Time aspirin Allergy Verified 03/08/16 16:54 ibuprofen AdvReac Verified 03/08/16 16:54 - Home Medications Home Medications: Ambulatory Orders Pregabalin [Lyrica] 150 mg PO DAILY 07/16/13 Acetaminophen/Caffeine/Butalb [Fioricet -] 1 tab PO Q4H PRN 04/26/15 Albuterol Sulfate Inhaler - [Ventolin Hfa Inhaler -] 1 - 2 inh PO QID 04/27/15 Hydrocodone/Acetaminophen [Vicodin 5-300 mg Tablet] 1 each PO PRN MDD 6 Family Disease History - Family Disease History Family History: Denies (premature CAD) Review of Systems Unable to obtain ROS, reason: due to MS Physical Exam Vital Signs: Vital Signs Temperature 99.4 F 03/09/16 16:00 Pulse Rate 75 03/09/16 16:00 Respiratory Rate 22 03/09/16 16:00 Blood Pressure 133/75 03/09/16 16:00 O2 Sat by Pulse Oximetry (%) 95 03/09/16 16:40 Constitutional: Yes: Thin Eyes: Yes: Other (eyes closed) HENT: Yes: Atraumatic Neck: Yes: Supple Cardiovascular: Yes: Regular Rate and Rhythm. No: Murmur Respiratory: Yes: CTA Bilaterally Gastrointestinal: Yes: Normal Bowel Sounds, Soft Extremities: Yes: Other (warm) Edema: No Peripheral Pulses WNL: Yes Neurological: Yes: Lethargy, Other (Restless) Labs: CBC, BMP 03/09/16 05:20 03/09/16 05:20 Imaging - Results Chest X-ray: Report Reviewed, Image Reviewed EKG: Report Reviewed, Image Reviewed Other: Other (tele -> SR, SB 50s) Assessment/Plan 60 yo female, with the above history, here with reported seizures (per her son) -. febrile, with elevate WBC -. unclear etiology In that setting, her trop Is have been indeterminate. EKG is w/o acute ischemic changes Doubt ACS Elevated BNP but no clicical CHF Unknown LV function Low K -. being repleted Rec: Follow lytes and keep nl Echocardiogram No direct cardiac treatment warranted Proceed with MRI Per IM/ID/Neuro Thanks! We'll follow!
[2016-03-09 17:10] LABS: CALCIUM 8.6 mg/dL (8.5-10.1); CREATININE 0.4 mg/dL (0.55-1.02)
[2016-03-09] MEDS: SENNOSIDES 8.6MG TABLET (FP) PO SCH (21:38)
[2016-03-09] MEDS ORDERED: AZITHROMYCIN IVPB 250 MG in DEXTROSE 5%-WATER - 250 ML IVPB SCH (22:00)
[2016-03-09 23:10] LABS: ALBUMIN 2.8 g/dl (3.4-5.0); ALK PHOS 188 U/L (45-117); ANION GAP 7 (8-16); BILIRUBIN,TOTAL 0.9 mg/dL (0.2-1.0); CALCIUM 8.2 mg/dL (8.5-10.1); CO2 32 mmol/L (21-32); CREATININE 0.4 mg/dL (0.55-1.02); GLUCOSE,RANDOM 106 mg/dL (74-106); MAGNESIUM 1.9 mg/dL (1.8-2.4); PHOSPHOROUS 2.4 mg/dL (2.5-4.9); SGOT/AST 57 U/L (15-37); SGPT/ALT 63 U/L (12-78); TOT PROT 5.3 g/dl (6.4-8.2)
[2016-03-09] MEDS ORDERED: POTASSIUM PHOSPHATE 10 MM in DEXTROSE 5%-WATER - 250 ML IVPB ONE (23:29)
[2016-03-09] MEDS ORDERED: KCL 10 MEQ IVPB 100 ML IVPB SCH (23:30)
[2016-03-10] MEDS: KCL 10 MEQ IVPB 100 ML IVPB SCH (02:00)
[2016-03-10] MEDS ORDERED: ACETAMINOPHEN 1000 MG/100 ML VIAL (NON FORMULARY) IVPB ONE (02:39)
[2016-03-10] MEDS ORDERED: ACETAMINOPHEN 325 MG TABLET (FP) ONE (02:39)
[2016-03-10] MEDS ORDERED: ACETAMINOPHEN 325 MG TABLET (FP) PO ONE (02:47)
[2016-03-10] MEDS: morphine CARPU-JECT 2 MG/1 ML DISP.SYRIN IVPUSH PRN ×4 (03:41→21:32)
[2016-03-10] MEDS: ALBUTEROL SO4 2.5/IPRATROPIUM 0.5 INH SOL 3 ML VIAL.NEB. NEB SCH ×3 (06:41→22:17)
[2016-03-10] MEDS: cefTRIAXone 1 GM/50 ML BAG (PRE-DOCKED) IVPB SCH (06:52)
--- NOTE | 2016-03-10 07:46 | PN ---
Progress Note, Physician Chief Complaint: ID Asked to see her for fever and WBC elevation in the setting of witness seizure at home Antibiotics were given. Brain lesions on head CT seen "hypodense" noncontrast study. Patient denies feeling ill or having had a seizure. Afebrile now NAD and denies headaches or visual complaints No recent dental evaluations or prior heart disease - Current Medication List Current Medications: Active Medications Albuterol Sulfate (Ventolin 0.083% Nebulizer Soln -) 1 amp NEB Q4H PRN PRN Reason: SHORT OF BREATH/WHEEZING Albuterol/Ipratropium (Duoneb -) 1 amp NEB TIDR [facility] Last Admin: 03/10/16 06:41 Dose: Not Given Ceftriaxone Sodium (Rocephin 1gm Ivpb (Pre-Docked)) 1 gm IVPB DAILY@06 [facility] Last Admin: 03/10/16 06:52 Dose: 1 gm Dextrose/Lactated Ringer's (D5-Lr -) 1,000 mls @ 75 mls/hr IV ASDIR [facility] Last Admin: 03/09/16 23:53 Dose: 75 mls/hr Morphine Sulfate (Morphine Injection -) 1.5 mg IVPUSH Q3H PRN PRN Reason: PAIN Last Admin: 03/10/16 03:41 Dose: 1.5 mg Pantoprazole Sodium (Protonix -) 40 mg PO DAILY [facility] Last Admin: 03/09/16 09:21 Dose: 40 mg Pregabalin (Lyrica -) 100 mg PO BID [facility] Last Admin: 03/09/16 21:38 Dose: 100 mg Senna (Senna -) 1 tab PO HS [facility] Last Admin: 03/09/16 21:38 Dose: 1 tab - Objective Vital Signs: Vital Signs Temperature 98 F 03/10/16 06:00 Pulse Rate 70 03/10/16 06:00 Respiratory Rate 18 03/10/16 06:00 Blood Pressure 131/76 03/10/16 06:00 O2 Sat by Pulse Oximetry (%) 95 03/09/16 20:51 Constitutional: Yes: Cachectic, Thin HENT: Yes: WNL, Atraumatic, Other (Dentition poor) Neck: Yes: WNL, Supple Cardiovascular: Yes: Regular Rate and Rhythm, S1, S2. No: Murmur Respiratory: Yes: WNL, Regular, CTA Bilaterally, Rhonchi. No: Rales, Wheezes Gastrointestinal: Yes: WNL, Normal Bowel Sounds. No: Splenomegaly, Tenderness, Tenderness, Rebound Edema: No Labs: CBC, BMP 03/09/16 05:20 03/09/16 22:25 INR, PTT INR 1.09 (0.82-1.09) 03/08/16 17:49 Assessment/Plan Microbiology 03/08/16 17:10 Blood - Peripheral Venous Blood Culture - Preliminary NO GROWTH OBTAINED AFTER 24 HOURS, INCUBATION TO CONTINUE FOR 4 DAYS. 03/08/16 17:10 Blood - Peripheral Venous Blood Culture - Preliminary NO GROWTH OBTAINED AFTER 24 HOURS, INCUBATION TO CONTINUE FOR 4 DAYS. Laboratory Tests 03/08/16 03/09/16 03/09/16 17:25 05:20 05:20 WBC 11.0 H Hgb 16.3 H D Hct 48.9 H D Plt Count 99 L D Lymphocytes % 9.1 Basophils % 0.2 Creat Clearance w eGFR AST Total Protein 5.8 L Albumin 3.1 L Urine RBC 16 Urine WBC <1 03/09/16 22:25 WBC Hgb Hct Plt Count Lymphocytes % Basophils % Creat Clearance w eGFR > 60 AST 57 H Total Protein Albumin Urine RBC Urine WBC Assessment Constellation of wasting syndrome with brain lesions ? history of Lung cancer though patient denies. Low grade temp Chest xray neg for infiltrate. Heavy smoker Low platelets noted Plan STOP antibiotics and observe negative cultures Agrees to HIV test MRI of the brain Neurology evaluation CRP ESR Quant silvia Thomas MD
[2016-03-10 07:55] LABS: ARTERIAL BLD GAS O2 SATURATION 92.2 % (90-98.9); ARTERIAL BLOOD GAS BASE EXCESS 7.8 meq/l (-2-2); ARTERIAL BLOOD GAS HCO3 31.8 meq/L (22-26); ARTERIAL BLOOD GAS PO2 61.6 mmHg (80-100); ARTERIAL BLOOD GAS pH 7.49 (7.35-7.45)
[2016-03-10 07:56] LABS: ALLENS TEST POSITIVE; ART PUNCT SITE RIGHT RADIAL; LPM/O2% 3L; PT. ON O2? YES; TYPE OF O2 NASAL
--- NOTE | 2016-03-10 09:51 | PN ---
Progress Note, Physician History of Present Illness: No chest pain or dyspnea. - Current Medication List Current Medications: Active Medications Albuterol Sulfate (Ventolin 0.083% Nebulizer Soln -) 1 amp NEB Q4H PRN PRN Reason: SHORT OF BREATH/WHEEZING Albuterol/Ipratropium (Duoneb -) 1 amp NEB TIDR [facility] Last Admin: 03/10/16 06:41 Dose: Not Given Dextrose/Lactated Ringer's (D5-Lr -) 1,000 mls @ 75 mls/hr IV ASDIR [facility] Last Admin: 03/09/16 23:53 Dose: 75 mls/hr Morphine Sulfate (Morphine Injection -) 1.5 mg IVPUSH Q3H PRN PRN Reason: PAIN Last Admin: 03/10/16 08:35 Dose: 1.5 mg Pantoprazole Sodium (Protonix -) 40 mg PO DAILY [facility] Last Admin: 03/09/16 09:21 Dose: 40 mg Pregabalin (Lyrica -) 100 mg PO BID [facility] Last Admin: 03/09/16 21:38 Dose: 100 mg Senna (Senna -) 1 tab PO HS [facility] Last Admin: 03/09/16 21:38 Dose: 1 tab - Objective Vital Signs: Vital Signs Temperature 98 F 03/10/16 06:00 Pulse Rate 70 03/10/16 08:00 Respiratory Rate 18 03/10/16 08:00 Blood Pressure 137/73 03/10/16 08:00 O2 Sat by Pulse Oximetry (%) 95 03/10/16 08:00 Constitutional: Yes: No Distress Eyes: Yes: Conjunctiva Clear, EOM Intact HENT: Yes: Atraumatic, Normocephalic Cardiovascular: Yes: Regular Rate and Rhythm. No: JVD, Murmur Respiratory: Yes: CTA Bilaterally Edema: No Labs: CBC, BMP 03/09/16 05:20 03/09/16 22:25 INR, PTT INR 1.09 (0.82-1.09) 03/08/16 17:49 Assessment/Plan 60 yo female smoker, with asthma, COPD, migraines, chronic back pain -> on pain medication, and possible lung cancer (per family report). Admitted with reported seizure activity. Patient was also febrile with elevated WBC. Cardiology consulted for minimally elevated troponins without ECG changes. Low suspicion for ACS. Mild troponin elevations can be see with seizures. Elevated BNP but no clinical CHF. RECS: Replace lytes as needed, Echocardiogram pending. Will follow-up echo results.
[2016-03-10] MEDS ORDERED: ONDANSETRON 4 MG/2 ML VIAL ONE (09:59)
[2016-03-10] MEDS: PANTOPRAZOLE 40 MG TABLET (FP) PO SCH (10:04)
[2016-03-10] MEDS: PREGABALIN 50 MG CAPSULE PO SCH ×2 (10:04→21:33)
[2016-03-10] MEDS ORDERED: ONDANSETRON 4 MG/2 ML VIAL IVPB PRN (10:49)
[2016-03-10 10:56] LABS: MCH 30.7 pg (25.7-33.7); MCHC 33.2 g/dl (32.0-36.0); MEAN CELL VOLUME 92.6 fl (80-96); MEAN PLT VOLUME 10.9 fl (7.5-11.1); PLATELET COUNT 112 K/MM3 (134-434); RDW 14.4 % (11.6-15.6); WHITE BLOOD COUNT 9.4 K/mm3 (4.0-10.0)
--- NOTE | 2016-03-10 11:01 | PN ---
Progress Note (short form) - Note Progress Note: PULMONARY/CCM Pt seen and examined in the ICU. Some headache and nausea this AM. Low grade temp overnight. No further seizure activity. Last Vital Signs Temp Pulse Resp BP Pulse Ox 98.6 F 73 17 138/78 94 L 03/10/16 10:45 03/10/16 10:18 03/10/16 10:00 03/10/16 10:00 03/10/16 10:18 Intake & Output 03/07/16 03/08/16 03/09/16 03/10/16 23:59 23:59 23:59 23:59 Intake Total 1000 3690 1845 Output Total 150 3100 1500 Balance 850 590 345 Weight 91 lb 91 lb 11.2 oz 97 lb 14.4 oz Gen: NAD at rest Heart: RRR Lung: distant breath sounds, no wheezes appreciated Abd: soft, nontender Ext: no edema Active Medications Albuterol Sulfate (Ventolin 0.083% Nebulizer Soln -) 1 amp NEB Q4H PRN PRN Reason: SHORT OF BREATH/WHEEZING Albuterol/Ipratropium (Duoneb -) 1 amp NEB TIDR [facility] Last Admin: 03/10/16 06:41 Dose: Not Given Dextrose/Lactated Ringer's (D5-Lr -) 1,000 mls @ 75 mls/hr IV ASDIR [facility] Last Admin: 03/09/16 23:53 Dose: 75 mls/hr Morphine Sulfate (Morphine Injection -) 1.5 mg IVPUSH Q3H PRN PRN Reason: PAIN Last Admin: 03/10/16 08:35 Dose: 1.5 mg Ondansetron HCl (Zofran Injection) 4 mg IVPB Q8H PRN PRN Reason: NAUSEA Last Admin: 03/10/16 10:30 Dose: 4 mg Pantoprazole Sodium (Protonix -) 40 mg PO DAILY [facility] Last Admin: 03/10/16 10:04 Dose: 40 mg Pregabalin (Lyrica -) 100 mg PO BID [facility] Last Admin: 03/10/16 10:04 Dose: 100 mg Senna (Senna -) 1 tab PO HS [facility] Last Admin: 03/09/16 21:38 Dose: 1 tab A/P New Onset Seizure Altered Mental Status improved COPD Chronic Hypoxic Respiratory Failure Polycythemia r/o Malignancy Smoker - agree with monitoring off antibiotics - f/u cultures - for CT chest - for MRI brain, abdomen - pain control, will place back on her home oxycontin dose - antiemetics - smoking cessation - PO as tolerated - DVT prophylaxis - can monitor on floor
[2016-03-10] MEDS ORDERED: ACETAMINOPHEN/CAFFEINE/BUTALBITAL 1 TAB PO PRN (11:05)
--- NOTE | 2016-03-10 11:10 | PN ---
Progress Note, Physician Chief Complaint: FOR IMAGE TESTING - Current Medication List Current Medications: Active Medications Acetaminophen/Butalbital/Caffeine (Fioricet -) 1 tablet PO Q6H PRN PRN Reason: FEVER OR PAIN Albuterol Sulfate (Ventolin 0.083% Nebulizer Soln -) 1 amp NEB Q4H PRN PRN Reason: SHORT OF BREATH/WHEEZING Albuterol/Ipratropium (Duoneb -) 1 amp NEB TIDR [facility] Last Admin: 03/10/16 06:41 Dose: Not Given Dextrose/Lactated Ringer's (D5-Lr -) 1,000 mls @ 75 mls/hr IV ASDIR [facility] Last Admin: 03/09/16 23:53 Dose: 75 mls/hr Morphine Sulfate (Morphine Injection -) 1.5 mg IVPUSH Q3H PRN PRN Reason: PAIN Last Admin: 03/10/16 08:35 Dose: 1.5 mg Ondansetron HCl (Zofran Injection) 4 mg IVPB Q8H PRN PRN Reason: NAUSEA Last Admin: 03/10/16 10:30 Dose: 4 mg Oxycodone HCl (Oxycontin -) 20 mg PO BID [facility] Pantoprazole Sodium (Protonix -) 40 mg PO DAILY [facility] Last Admin: 03/10/16 10:04 Dose: 40 mg Pregabalin (Lyrica -) 100 mg PO BID [facility] Last Admin: 03/10/16 10:04 Dose: 100 mg Senna (Senna -) 1 tab PO HS [facility] Last Admin: 03/09/16 21:38 Dose: 1 tab - Objective Vital Signs: Vital Signs Temperature 98.6 F 03/10/16 10:45 Pulse Rate 73 03/10/16 10:18 Respiratory Rate 17 03/10/16 10:00 Blood Pressure 138/78 03/10/16 10:00 O2 Sat by Pulse Oximetry (%) 94 L 03/10/16 10:18 Constitutional: Yes: Calm Cardiovascular: Yes: Regular Rate and Rhythm, S1, S2 Respiratory: Yes: Rhonchi Gastrointestinal: Yes: Normal Bowel Sounds, Soft Edema: No Labs: CBC, BMP 03/10/16 10:20 INR, PTT INR 1.09 (0.82-1.09) 03/08/16 17:49 Problem List - Problems (1) Altered mental status Code(s): R41.82 - ALTERED MENTAL STATUS, UNSPECIFIED (2) Brain lesion Code(s): G93.9 - DISORDER OF BRAIN, UNSPECIFIED (3) Elevated troponin Code(s): R79.89 - OTHER SPECIFIED ABNORMAL FINDINGS OF BLOOD CHEMISTRY (4) Fever Code(s): R50.9 - FEVER, UNSPECIFIED (5) New onset seizure Code(s): R56.9 - UNSPECIFIED CONVULSIONS Assessment/Plan (1) Altered mental status Assessment/Plan: MAYBE DUE TO SEIZURE MONITOR MRI OF HEAD SHOWS LESIONS APPRECIATE NEURO CONSULT NOT ON AED -> START IF REPEAT SEIZURE Code(s): R41.82 - ALTERED MENTAL STATUS, UNSPECIFIED (2) Elevated troponin Assessment/Plan: NO ACS CARDIO CONSULT APPRECIATED F/U ECHO Code(s): R79.89 - OTHER SPECIFIED ABNORMAL FINDINGS OF BLOOD CHEMISTRY (3) Fever Assessment/Plan: ABx STOPPED OBSERVE ID CONSULT APPRECIATED F/U CULTURES Code(s): R50.9 - FEVER, UNSPECIFIED (4) Hypokalemia Assessment/Plan: REPLACE AND MONITOR PERSISTENT - KCl 40 DAILY Code(s): E87.6 - HYPOKALEMIA (5) New onset seizure Assessment/Plan: MAY BE DUE TO LESIONS MRI NEURO SEE #1 Code(s): R56.9 - UNSPECIFIED CONVULSIONS (6) Brain lesion Assessment/Plan: MRI Code(s): G93.9 - DISORDER OF BRAIN, UNSPECIFIED (7) Cancer Assessment/Plan: BY HISTORY--OBTAIN RECORDS Code(s): C80.1 - MALIGNANT (PRIMARY) NEOPLASM, UNSPECIFIED 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
[2016-03-10 11:18] LABS: ALBUMIN 3.1 g/dl (3.4-5.0); ALK PHOS 201 U/L (45-117); ANION GAP 7 (8-16); BILIRUBIN,TOTAL 0.7 mg/dL (0.2-1.0); CALCIUM 8.6 mg/dL (8.5-10.1); CO2 32 mmol/L (21-32); CREATININE 0.4 mg/dL (0.55-1.02); GLUCOSE,RANDOM 94 mg/dL (74-106); PHOSPHOROUS 3.4 mg/dL (2.5-4.9); SGOT/AST 36 U/L (15-37); SGPT/ALT 54 U/L (12-78); TOT PROT 5.9 g/dl (6.4-8.2)
[2016-03-10 11:58] LABS: HIV 1 & 2 AB NEGATIVE; HIV 1 AGp24 NEGATIVE
[2016-03-10 12:51] LABS: C-REACTIVE PROTEIN 1.7 MG/DL (0.00-0.3)
[2016-03-10] MEDS: oxyCODONE HCL 5 MG TABLET PO PRN (17:14)
[2016-03-10] MEDS: SENNOSIDES 8.6MG TABLET (FP) PO SCH (21:33)
[2016-03-10] MEDS: CHLORHEXIDINE GLUCONATE 4% CLEANSER FOR DECOLONIZATION TP SCH (21:34)
[2016-03-10] MEDS: MUPIROCIN 2% TOPICAL OINTMENT FOR DECOLONIZATION NS SCH (21:34)
[2016-03-11] MEDS: DEXTROSE 5%-LACTATED RINGERS 1,000 ML IV SCH
[2016-03-11] MEDS: oxyCODONE HCL 5 MG TABLET PO PRN ×2 (00:20→22:09)
[2016-03-11] MEDS: morphine CARPU-JECT 2 MG/1 ML DISP.SYRIN IVPUSH PRN ×4 (02:15→20:38)
[2016-03-11 06:01] LABS: BASOPHIL 0.2 % (0-2.0); EOSINOPHIL 1.5 % (0-4.5); MCHC 32.5 g/dl (32.0-36.0); MEAN CELL VOLUME 92.4 fl (80-96); NEUTROPHILS 53.1 % (42.8-82.8); PLATELET COUNT 99 K/MM3 (134-434); RDW 14.2 % (11.6-15.6); WHITE BLOOD COUNT 6.8 K/mm3 (4.0-10.0)
[2016-03-11] MEDS: ALBUTEROL SO4 2.5/IPRATROPIUM 0.5 INH SOL 3 ML VIAL.NEB. NEB SCH ×3 (06:07→23:00)
[2016-03-11 06:22] LABS: ALBUMIN 2.5 g/dl (3.4-5.0); ANION GAP 7 (8-16); CALCIUM 7.8 mg/dL (8.5-10.1); CO2 34 mmol/L (21-32); CREATININE 0.4 mg/dL (0.55-1.02); GLUCOSE,RANDOM 98 mg/dL (74-106); MAGNESIUM 1.9 mg/dL (1.8-2.4); PHOSPHOROUS 3.6 mg/dL (2.5-4.9); SGOT/AST 18 U/L (15-37); SGPT/ALT 34 U/L (12-78)
[2016-03-11 06:23] LABS: ALK PHOS 158 U/L (45-117); BILIRUBIN,TOTAL 0.7 mg/dL (0.2-1.0); TOT PROT 4.8 g/dl (6.4-8.2)
[2016-03-11] MEDS ORDERED: POTASSIUM CHLORIDE 40 MEQ/30 ML UNIT DOSE CUP PO ONE (08:30)
--- NOTE | 2016-03-11 08:59 | PN ---
Progress Note, Physician History of Present Illness: No chest pain or dyspnea. No events overngiht. - Current Medication List Current Medications: Active Medications Acetaminophen/Butalbital/Caffeine (Fioricet -) 1 tablet PO Q6H PRN PRN Reason: FEVER OR PAIN Albuterol Sulfate (Ventolin 0.083% Nebulizer Soln -) 1 amp NEB Q4H PRN PRN Reason: SHORT OF BREATH/WHEEZING Albuterol/Ipratropium (Duoneb -) 1 amp NEB TIDR [facility] Last Admin: 03/11/16 06:07 Dose: Not Given Chlorhexidine Gluconate (Hibiclens For Decolonization -) 1 applic TP HS [facility] Last Admin: 03/10/16 21:34 Dose: 1 applic Dextrose/Lactated Ringer's (D5-Lr -) 1,000 mls @ 75 mls/hr IV ASDIR [facility] Last Admin: 03/11/16 00:00 Dose: 75 mls/hr Morphine Sulfate (Morphine Injection -) 1.5 mg IVPUSH Q3H PRN PRN Reason: PAIN Last Admin: 03/11/16 02:15 Dose: 1.5 mg Mupirocin (Bactroban Ointment (For Decolonization) -) 1 applic NS BID [facility] Stop: 03/15/16 21:59 Last Admin: 03/10/16 21:34 Dose: 1 applic Ondansetron HCl (Zofran Injection) 4 mg IVPB Q8H PRN PRN Reason: NAUSEA Last Admin: 03/10/16 10:30 Dose: 4 mg Oxycodone HCl (Roxicodone -) 20 mg PO Q8H PRN Last Admin: 03/11/16 00:20 Dose: 20 mg Pantoprazole Sodium (Protonix -) 40 mg PO DAILY [facility] Last Admin: 03/10/16 10:04 Dose: 40 mg Potassium Chloride (K-Dur -) 40 meq PO DAILY [facility] Pregabalin (Lyrica -) 100 mg PO BID [facility] Last Admin: 03/10/16 21:33 Dose: 100 mg Senna (Senna -) 1 tab PO HS [facility] Last Admin: 03/10/16 21:33 Dose: 1 tab - Objective Vital Signs: Vital Signs Temperature 98 F 03/11/16 06:00 Pulse Rate 56 L 03/11/16 08:00 Respiratory Rate 11 L 03/11/16 08:00 Blood Pressure 102/70 03/11/16 08:00 O2 Sat by Pulse Oximetry (%) 96 03/10/16 22:00 Constitutional: Yes: No Distress Eyes: Yes: Conjunctiva Clear, EOM Intact Cardiovascular: Yes: Regular Rate and Rhythm. No: JVD, Murmur Respiratory: Yes: CTA Bilaterally Gastrointestinal: Yes: Normal Bowel Sounds, Soft. No: Tenderness Edema: No Labs: CBC, BMP 03/11/16 05:05 03/11/16 05:05 INR, PTT INR 1.09 (0.82-1.09) 03/08/16 17:49 Assessment/Plan 60 yo female smoker, with asthma, COPD, migraines, chronic back pain -> on pain medication, and possible lung cancer (per family report). Admitted with reported seizure activity. Patient was also febrile with elevated WBC. Cardiology consulted for minimally elevated troponins without ECG changes. Low suspicion for ACS. Mild troponin elevations can be see with seizures. Elevated BNP but no clinical CHF. RECS: Echocardiogram pending today. Will follow-up echo results. If echocardiogram is unremarkable, no further inpatient cardiac evaluation is clinically warranted. Replace lytes as needed. Will defer to certified registered nurse practitioner and primary care teams. Patient does not need further cardiac monitoring and may be transferred to non- telemetry floor from cardiac standpoint. Will follow. Call with questions.
[2016-03-11] MEDS: PANTOPRAZOLE 40 MG TABLET (FP) PO SCH (09:25)
[2016-03-11] MEDS: PREGABALIN 50 MG CAPSULE PO SCH ×2 (09:25→22:08)
[2016-03-11] MEDS: MUPIROCIN 2% TOPICAL OINTMENT FOR DECOLONIZATION NS SCH ×2 (09:27→22:08)
[2016-03-11] MEDS: POTASSIUM CHLORIDE TABS 20 MEQ TABLET.ER (FP) PO SCH (09:41)
--- NOTE | 2016-03-11 11:23 | PN ---
Teaching Attending Note Name of Resident: Landry Cartwright ATTENDING PHYSICIAN STATEMENT I saw and evaluated the patient. I reviewed the resident's note and discussed the case with the resident. I agree with the resident's findings and plan as documented. SUBJECTIVE: Pt seen and examined in the ICU. Feels better. No shortness of breath. No fevers or chills. MRI brain done yesterday showing changes more consistent with hypertensive encephalopathy. OBJECTIVE: Last Vital Signs Temp Pulse Resp BP Pulse Ox 98 F 69 17 118/69 96 03/11/16 06:00 03/11/16 10:00 03/11/16 10:00 03/11/16 10:00 03/10/16 22:00 Intake & Output 03/08/16 03/09/16 03/10/16 03/11/16 23:59 23:59 23:59 23:59 Intake Total 1000 3690 2955 1100 Output Total 150 3100 2000 Balance 850 688 984 3467 Weight 91 lb 91 lb 11.2 oz 97 lb 14.4 oz Gen: NAD at rest Heart: RRR Lung: distant breath sounds, no wheezes Abd: soft, nontender Ext: no edema CBC, BMP 03/11/16 05:05 03/11/16 05:05 Active Medications Acetaminophen/Butalbital/Caffeine (Fioricet -) 1 tablet PO Q6H PRN PRN Reason: FEVER OR PAIN Albuterol Sulfate (Ventolin 0.083% Nebulizer Soln -) 1 amp NEB Q4H PRN PRN Reason: SHORT OF BREATH/WHEEZING Albuterol/Ipratropium (Duoneb -) 1 amp NEB TIDR [facility] Last Admin: 03/11/16 06:07 Dose: Not Given Chlorhexidine Gluconate (Hibiclens For Decolonization -) 1 applic TP HS [facility] Last Admin: 03/10/16 21:34 Dose: 1 applic Morphine Sulfate (Morphine Injection -) 1.5 mg IVPUSH Q3H PRN PRN Reason: PAIN Last Admin: 03/11/16 02:15 Dose: 1.5 mg Mupirocin (Bactroban Ointment (For Decolonization) -) 1 applic NS BID [facility] Stop: 03/15/16 21:59 Last Admin: 03/11/16 09:27 Dose: 1 applic Ondansetron HCl (Zofran Injection) 4 mg IVPB Q8H PRN PRN Reason: NAUSEA Last Admin: 03/10/16 10:30 Dose: 4 mg Oxycodone HCl (Roxicodone -) 20 mg PO Q8H PRN Last Admin: 03/11/16 00:20 Dose: 20 mg Pantoprazole Sodium (Protonix -) 40 mg PO DAILY [facility] Last Admin: 03/11/16 09:25 Dose: 40 mg Potassium Chloride (K-Dur -) 40 meq PO DAILY [facility] Last Admin: 03/11/16 09:41 Dose: 40 meq Potassium Chloride (K-Dur -) 40 meq PO ONCE ONE Stop: 03/12/16 22:01 Pregabalin (Lyrica -) 100 mg PO BID [facility] Last Admin: 03/11/16 09:25 Dose: 100 mg Senna (Senna -) 1 tab PO HS [facility] Last Admin: 03/10/16 21:33 Dose: 1 tab ASSESSMENT AND PLAN: New Onset Seizure Altered Mental Status improved COPD Chronic Hypoxic Respiratory Failure Polycythemia Atelectasis Smoker - agree with monitoring off antibiotics - pain control - antiemetics - smoking cessation - PO as tolerated - DVT prophylaxis - will need to check ambulatory SpO2 when ready for discharge to assess for home O2 - can monitor on floor
--- NOTE | 2016-03-11 11:52 | PN ---
Progress Note (short form) - Note Progress Note: quite awake and alert c/o lower back pain-different from her usual pain no history of prior thyroid disease history prior back pain- followed by pain management in Dr Vazquez's office no fevers recent stressors in her family- deaths Vital Signs Period Temp Pulse Resp BP Sys/Forrest Pulse Ox Last 24 Hr 98 F-98.8 F 54-85 11-18 84-133/49-79 96-96 cor-rrr lungs clear abd soft,nt ext no edema CBC, BMP 03/11/16 05:05 03/11/16 05:05 Microbiology 03/08/16 17:10 Blood - Peripheral Venous Blood Culture - Preliminary NO GROWTH OBTAINED AFTER 48 HOURS, INCUBATION TO CONTINUE FOR 3 DAYS. 03/08/16 17:10 Blood - Peripheral Venous Blood Culture - Preliminary NO GROWTH OBTAINED AFTER 48 HOURS, INCUBATION TO CONTINUE FOR 3 DAYS. 03/09/16 14:45 Urine For Antigen Detection Legionella Antigen - Final 03/09/16 14:45 Urine For Antigen Detection Streptococcus pneumoniae Antigen (M - Final 03/08/16 17:25 Urine - Urine Clean Catch Urine Culture - Final NO GROWTH OBTAINED 03/08/16 17:25 Nasopharyngeal Swab Respiratory Virus Panel - Preliminary 03/08/16 17:25 Nasopharyngeal Swab Influenza Types A,B Antigen (YULIYA) - Final 03/08/16 17:25 Nasopharyngeal Swab - Final Laboratory Tests 03/10/16 10:20 HIV 1&2 Antibody Screen Negative HIV P24 Antigen Negative a/p new onset seizures thryroid mass elevated ESR check TFTS consider imaging of her back observe off antibiotics d/w ICU resident
--- NOTE | 2016-03-11 13:06 | PN ---
Progress Note, Physician History of Present Illness: patient seen and examined at bedside in the ICU no seizure activity complaining of back pain which she states is different than her usual pain - Current Medication List Current Medications: Active Medications Acetaminophen/Butalbital/Caffeine (Fioricet -) 1 tablet PO Q6H PRN PRN Reason: FEVER OR PAIN Albuterol Sulfate (Ventolin 0.083% Nebulizer Soln -) 1 amp NEB Q4H PRN PRN Reason: SHORT OF BREATH/WHEEZING Albuterol/Ipratropium (Duoneb -) 1 amp NEB TIDR [facility] Last Admin: 03/11/16 06:07 Dose: Not Given Chlorhexidine Gluconate (Hibiclens For Decolonization -) 1 applic TP HS [facility] Last Admin: 03/10/16 21:34 Dose: 1 applic Morphine Sulfate (Morphine Injection -) 1.5 mg IVPUSH Q3H PRN PRN Reason: PAIN Last Admin: 03/11/16 11:36 Dose: 1.5 mg Mupirocin (Bactroban Ointment (For Decolonization) -) 1 applic NS BID [facility] Stop: 03/15/16 21:59 Last Admin: 03/11/16 09:27 Dose: 1 applic Ondansetron HCl (Zofran Injection) 4 mg IVPB Q8H PRN PRN Reason: NAUSEA Last Admin: 03/10/16 10:30 Dose: 4 mg Oxycodone HCl (Roxicodone -) 20 mg PO Q8H PRN Last Admin: 03/11/16 00:20 Dose: 20 mg Pantoprazole Sodium (Protonix -) 40 mg PO DAILY [facility] Last Admin: 03/11/16 09:25 Dose: 40 mg Potassium Chloride (K-Dur -) 40 meq PO DAILY [facility] Last Admin: 03/11/16 09:41 Dose: 40 meq Potassium Chloride (K-Dur -) 40 meq PO ONCE ONE Stop: 03/12/16 22:01 Pregabalin (Lyrica -) 100 mg PO BID [facility] Last Admin: 03/11/16 09:25 Dose: 100 mg Senna (Senna -) 1 tab PO HS [facility] Last Admin: 03/10/16 21:33 Dose: 1 tab - Objective Vital Signs: Vital Signs Temperature 98 F 03/11/16 06:00 Pulse Rate 68 03/11/16 12:00 Respiratory Rate 17 01/17/17 12:00 Blood Pressure 109/63 03/11/16 12:00 O2 Sat by Pulse Oximetry (%) 96 03/11/16 10:00 Constitutional: Yes: No Distress Eyes: Yes: Conjunctiva Clear HENT: Yes: Atraumatic Cardiovascular: Yes: Regular Rate and Rhythm Respiratory: Yes: CTA Bilaterally Gastrointestinal: Yes: Normal Bowel Sounds, Soft Musculoskeletal: Yes: Back Pain, Muscle Pain Neurological: Yes: Alert, Oriented Labs: CBC, BMP 03/11/16 05:05 03/11/16 05:05 INR, PTT INR 1.09 (0.82-1.09) 03/08/16 17:49 - ....Imaging Chest X-ray: Report Reviewed, Image Reviewed X-ray: Report Reviewed, Image Reviewed Cat Scan: Report Reviewed, Image Reviewed MRI: Report Reviewed, Image Reviewed Assessment/Plan 60F with COPD presented to the D with new onset seizure New onset seizure MRI reading consistent with hypertensive insult patient did not have hypertension on presentation and denies a history of HTN f/u neurology no further seizures will continue to observe off AEDs TFTs in AM continue to monitor off ABx AMS: resolved TFTs in AM COPD/atelectais: continue albuterol continue duonebs counselled on quitting smoking states doing well off nicotine and does not plan on restating smoking Polycythemia: asymptomatic at this time outpt follow up Thyroid mass: will check TFTs Will need ultrasound and possible FNA as outpt FEN: D5LR@75ml/hr severe hypokalemia-replete potassium aggressively recheck BMP regular diet PPx: SCDs Protonix no PT consult needed at this time
[2016-03-11] MEDS: LIDOCAINE 5% TOPICAL PATCH TP SCH (17:23)
[2016-03-11] MEDS: CALCITONIN - SALMON SYNTHETIC 3.7 ML SPRAY.PUMP NS SCH (17:24)
[2016-03-11] MEDS: ACETAMINOPHEN/CAFFEINE/BUTALBITAL 1 TAB PO PRN (18:40)
--- NOTE | 2016-03-11 19:00 | PN ---
Progress Note, Physician Chief Complaint: IN BED WITH DAUGHTER BEDSIDE NAD , DENIES SEIZURES TODAY +WEAKNESS, BACK PAIN, AND HEADACHES - Current Medication List Current Medications: Active Medications Acetaminophen/Butalbital/Caffeine (Fioricet -) 1 tablet PO Q6H PRN PRN Reason: FEVER OR PAIN Last Admin: 03/11/16 18:40 Dose: 1 tablet Albuterol Sulfate (Ventolin 0.083% Nebulizer Soln -) 1 amp NEB Q4H PRN PRN Reason: SHORT OF BREATH/WHEEZING Albuterol/Ipratropium (Duoneb -) 1 amp NEB TIDR [facility] Last Admin: 03/11/16 14:34 Dose: Not Given Calcitonin (Miacalcin [place] -) 200 units NS DAILY [facility] Last Admin: 03/11/16 17:24 Dose: 200 units Chlorhexidine Gluconate (Hibiclens For Decolonization -) 1 applic TP HS [facility] Last Admin: 03/10/16 21:34 Dose: 1 applic Lidocaine (Lidoderm Patch -) 1 patch TP DAILY [facility] Last Admin: 03/11/16 17:23 Dose: 1 patch Morphine Sulfate (Morphine Injection -) 1.5 mg IVPUSH Q3H PRN PRN Reason: PAIN Last Admin: 03/11/16 16:19 Dose: 1.5 mg Mupirocin (Bactroban Ointment (For Decolonization) -) 1 applic NS BID [facility] Stop: 03/15/16 21:59 Last Admin: 03/11/16 09:27 Dose: 1 applic Ondansetron HCl (Zofran Injection) 4 mg IVPB Q8H PRN PRN Reason: NAUSEA Last Admin: 03/10/16 10:30 Dose: 4 mg Oxycodone HCl (Roxicodone -) 20 mg PO Q8H PRN Last Admin: 03/11/16 00:20 Dose: 20 mg Pantoprazole Sodium (Protonix -) 40 mg PO DAILY [facility] Last Admin: 03/11/16 09:25 Dose: 40 mg Potassium Chloride (K-Dur -) 40 meq PO DAILY [facility] Last Admin: 03/11/16 09:41 Dose: 40 meq Potassium Chloride (K-Dur -) 40 meq PO ONCE ONE Stop: 03/12/16 22:01 Pregabalin (Lyrica -) 100 mg PO BID [facility] Last Admin: 03/11/16 09:25 Dose: 100 mg Senna (Senna -) 1 tab PO HS [facility] Last Admin: 03/10/16 21:33 Dose: 1 tab - Objective Vital Signs: Vital Signs Temperature 98.2 F 03/11/16 14:00 Pulse Rate 73 03/11/16 18:00 Respiratory Rate 18 03/11/16 18:00 Blood Pressure 124/66 03/11/16 18:00 O2 Sat by Pulse Oximetry (%) 96 03/11/16 10:00 Constitutional: Yes: Mild Distress Eyes: Yes: WNL HENT: Yes: WNL Neck: Yes: WNL Cardiovascular: Yes: WNL Respiratory: Yes: WNL Gastrointestinal: Yes: WNL Genitourinary: Yes: Incontinence Musculoskeletal: Yes: Back Pain, Joint Stiffness, Muscle Weakness Extremities: Yes: WNL Edema: No Integumentary: Yes: WNL Wound/Incision: Yes: Clean/Dry Neurological: Yes: Pre-Existing Deficit, Tingling ...Motor Strength: LLE, RLE Psychiatric: Yes: Other Labs: CBC, BMP 03/11/16 05:05 03/11/16 05:05 INR, PTT INR 1.09 (0.82-1.09) 03/08/16 17:49 Problem List - Problems (1) Altered mental status Code(s): R41.82 - ALTERED MENTAL STATUS, UNSPECIFIED (2) Brain lesion Code(s): G93.9 - DISORDER OF BRAIN, UNSPECIFIED (3) Cancer Code(s): C80.1 - MALIGNANT (PRIMARY) NEOPLASM, UNSPECIFIED (4) Elevated troponin Code(s): R79.89 - OTHER SPECIFIED ABNORMAL FINDINGS OF BLOOD CHEMISTRY (5) Fall Code(s): W19.XXXA - UNSPECIFIED FALL, INITIAL ENCOUNTER (6) Fever Code(s): R50.9 - FEVER, UNSPECIFIED (7) Hypokalemia Code(s): E87.6 - HYPOKALEMIA (8) Hypoxemia Code(s): R09.02 - HYPOXEMIA (9) New onset seizure Code(s): R56.9 - UNSPECIFIED CONVULSIONS (10) Polycythemia Code(s): D75.1 - SECONDARY POLYCYTHEMIA (11) Chronic back pain Code(s): M54.9 - DORSALGIA, UNSPECIFIED G89.29 - OTHER CHRONIC PAIN Assessment/Plan NEOPLASTIC WORKUP IN PROGRESS NOT SURE IF THIS IS NEOPLASM WITH LESIONS VS HTN ENCEPHALOPATHY CONTINUE WORKUP WITH CLOSE MONITORING THYROID SCAN PENDING CALCITONIN FOR COMPRESSION FRACTURE VITAMIN D PAIN CONTROL DVT PROPHYLAXIS
[2016-03-11] MEDS: CHLORHEXIDINE GLUCONATE 4% CLEANSER FOR DECOLONIZATION TP SCH (22:08)
[2016-03-11] MEDS: SENNOSIDES 8.6MG TABLET (FP) PO SCH (22:09)
[2016-03-12] MEDS: morphine CARPU-JECT 2 MG/1 ML DISP.SYRIN IVPUSH PRN ×3 (00:53→16:52)
[2016-03-12 05:57] LABS: MCH 31.2 pg (25.7-33.7); MCHC 33.6 g/dl (32.0-36.0); MEAN CELL VOLUME 92.9 fl (80-96); MEAN PLT VOLUME 11.1 fl (7.5-11.1); PLATELET COUNT 114 K/MM3 (134-434); RDW 14.5 % (11.6-15.6)
[2016-03-12 06:25] LABS: CREATININE 0.4 mg/dL (0.55-1.02)
[2016-03-12 06:32] LABS: THYROID STIMULATING HORMONE 0.98 uIU/ml (0.358-3.74)
[2016-03-12 06:33] LABS: FREE T4 1.41 ng/dl (0.76-1.46); PHOSPHOROUS 3.4 mg/dL (2.5-4.9)
--- NOTE | 2016-03-12 06:55 | PN ---
Progress Note (short form) - Note Progress Note: ID Patient is up for transfer. She is afebrile off antibiotics Her major complaints back pain perhaps related to the compression fracture T 5 seen on imaging No antibiotics being given No further seizures Selected Entries 03/11/16 08:00 Temperature 98.2 F Pulse Rate 56 L Respiratory 17 Rate Blood Pressure 102/70 Microbiology 03/09/16 14:45 Urine For Antigen Detection Legionella Antigen - Final 03/09/16 14:45 Urine For Antigen Detection Streptococcus pneumoniae Antigen (M - Final 03/08/16 17:25 Urine - Urine Clean Catch Urine Culture - Final NO GROWTH OBTAINED 03/08/16 17:25 Nasopharyngeal Swab Influenza Types A,B Antigen (YULIYA) - Final 03/08/16 17:25 Nasopharyngeal Swab - Final 03/10/16 11:17 Blood - Peripheral Venous TB Test (QFT) (YULYIA) - Preliminary 03/08/16 17:25 Nasopharyngeal Swab Respiratory Virus Panel - Preliminary 03/08/16 17:10 Blood - Peripheral Venous Blood Culture - Preliminary NO GROWTH OBTAINED AFTER 72 HOURS, INCUBATION TO CONTINUE FOR 2 DAYS. 03/08/16 17:10 Blood - Peripheral Venous Blood Culture - Preliminary NO GROWTH OBTAINED AFTER 72 HOURS, INCUBATION TO CONTINUE FOR 2 DAYS. Laboratory Tests 03/10/16 03/10/16 03/11/16 07:46 10:20 05:05 WBC Hgb Plt Count ESR > 130 H ABG pH 7.49 H ABG pCO2 at Pt Temp 42.1 ABG pO2 at Pt Temp 61.6 L Oxygen Flow Rate 3l AST ALT Alkaline Phosphatase HIV 1&2 Antibody Screen Negative HIV P24 Antigen Negative 03/11/16 03/12/16 05:05 05:05 WBC 8.0 Hgb 14.9 Plt Count 114 L ESR ABG pH ABG pCO2 at Pt Temp ABG pO2 at Pt Temp Oxygen Flow Rate AST 18 D ALT 34 D Alkaline Phosphatase 158 H D HIV 1&2 Antibody Screen HIV P24 Antigen Assessment New onset seizure disorder unknown etiology Enlarging thyroid mass previously seen 2009 Thrombocytopenia O2 dependent/ COPD Back pain with compression fracture T 5 Elevated ESR Plan No indication for antibiotics thus far Awaiting MRI of the brain MELODY and Latex to evaluate elevated ESR Evaluation of thyroid mass with head and neck surgeon for biopsy of mass Mratha [place]
[2016-03-12] MEDS: ALBUTEROL SO4 2.5/IPRATROPIUM 0.5 INH SOL 3 ML VIAL.NEB. NEB SCH ×3 (07:04→22:50)
[2016-03-12] MEDS: PREGABALIN 50 MG CAPSULE PO SCH ×2 (09:23→22:24)
[2016-03-12] MEDS: PANTOPRAZOLE 40 MG TABLET (FP) PO SCH (09:24)
[2016-03-12] MEDS: POTASSIUM CHLORIDE TABS 20 MEQ TABLET.ER (FP) PO SCH (09:28)
[2016-03-12] MEDS: CALCITONIN - SALMON SYNTHETIC 3.7 ML SPRAY.PUMP NS SCH (09:29)
[2016-03-12] MEDS: MUPIROCIN 2% TOPICAL OINTMENT FOR DECOLONIZATION NS SCH ×2 (09:29→22:08)
[2016-03-12] MEDS: LIDOCAINE 5% TOPICAL PATCH TP SCH (09:30)
--- NOTE | 2016-03-12 10:51 | PN ---
Progress Note, Physician Chief Complaint: NO DISTRESS CALM WATCHING TV - Current Medication List Current Medications: Active Medications Acetaminophen/Butalbital/Caffeine (Fioricet -) 1 tablet PO Q6H PRN PRN Reason: FEVER OR PAIN Last Admin: 03/11/16 18:40 Dose: 1 tablet Albuterol Sulfate (Ventolin 0.083% Nebulizer Soln -) 1 amp NEB Q4H PRN PRN Reason: SHORT OF BREATH/WHEEZING Albuterol/Ipratropium (Duoneb -) 1 amp NEB TIDR [facility] Last Admin: 03/12/16 07:04 Dose: Not Given Calcitonin (Miacalcin [place] -) 200 units NS DAILY [facility] Last Admin: 03/12/16 09:29 Dose: 200 units Chlorhexidine Gluconate (Hibiclens For Decolonization -) 1 applic TP HS [facility] Last Admin: 03/11/16 22:08 Dose: 1 applic Lidocaine (Lidoderm Patch -) 1 patch TP DAILY [facility] Last Admin: 03/12/16 09:30 Dose: 1 patch Morphine Sulfate (Morphine Injection -) 1.5 mg IVPUSH Q3H PRN PRN Reason: PAIN Last Admin: 03/12/16 10:31 Dose: 1.5 mg Mupirocin (Bactroban Ointment (For Decolonization) -) 1 applic NS BID [facility] Stop: 03/15/16 21:59 Last Admin: 03/12/16 09:29 Dose: 1 applic Ondansetron HCl (Zofran Injection) 4 mg IVPB Q8H PRN PRN Reason: NAUSEA Last Admin: 03/10/16 10:30 Dose: 4 mg Oxycodone HCl (Roxicodone -) 20 mg PO Q8H PRN Last Admin: 03/11/16 22:09 Dose: 20 mg Pantoprazole Sodium (Protonix -) 40 mg PO DAILY [facility] Last Admin: 03/12/16 09:24 Dose: 40 mg Potassium Chloride (K-Dur -) 40 meq PO DAILY [facility] Last Admin: 03/12/16 09:28 Dose: 40 meq Potassium Chloride (K-Dur -) 40 meq PO ONCE ONE Stop: 03/12/16 22:01 Pregabalin (Lyrica -) 100 mg PO BID [facility] Last Admin: 03/12/16 09:23 Dose: 100 mg Senna (Senna -) 1 tab PO [facility] Last Admin: 03/11/16 22:09 Dose: 1 tab - Objective Vital Signs: Vital Signs Temperature 98.5 F 03/12/16 10:00 Pulse Rate 75 03/12/16 10:00 Respiratory Rate 18 03/12/16 10:00 Blood Pressure 127/79 03/12/16 10:00 O2 Sat by Pulse Oximetry (%) 90 L 03/12/16 09:25 Constitutional: Yes: Calm Cardiovascular: Yes: Regular Rate and Rhythm, S1, S2 Respiratory: Yes: CTA Bilaterally Gastrointestinal: Yes: Normal Bowel Sounds, Soft Edema: No Labs: CBC, BMP 03/12/16 05:05 03/12/16 05:05 INR, PTT INR 1.09 (0.82-1.09) 03/08/16 17:49 Problem List - Problems (1) Altered mental status Code(s): R41.82 - ALTERED MENTAL STATUS, UNSPECIFIED (2) Brain lesion Code(s): G93.9 - DISORDER OF BRAIN, UNSPECIFIED (3) Elevated troponin Code(s): R79.89 - OTHER SPECIFIED ABNORMAL FINDINGS OF BLOOD CHEMISTRY (4) Fever Code(s): R50.9 - FEVER, UNSPECIFIED (5) New onset seizure Code(s): R56.9 - UNSPECIFIED CONVULSIONS Assessment/Plan (1) Altered mental status Code(s): R41.82 - ALTERED MENTAL STATUS, UNSPECIFIED (2) Brain lesion Code(s): G93.9 - DISORDER OF BRAIN, UNSPECIFIED (3) Cancer Code(s): C80.1 - MALIGNANT (PRIMARY) NEOPLASM, UNSPECIFIED (4) Elevated troponin Code(s): R79.89 - OTHER SPECIFIED ABNORMAL FINDINGS OF BLOOD CHEMISTRY (5) Fall Code(s): W19.XXXA - UNSPECIFIED FALL, INITIAL ENCOUNTER (6) Fever Code(s): R50.9 - FEVER, UNSPECIFIED (7) Hypokalemia Code(s): E87.6 - HYPOKALEMIA (8) Hypoxemia Code(s): R09.02 - HYPOXEMIA (9) New onset seizure Code(s): R56.9 - UNSPECIFIED CONVULSIONS (10) Polycythemia Code(s): D75.1 - SECONDARY POLYCYTHEMIA (11) Chronic back pain Code(s): M54.9 - DORSALGIA, UNSPECIFIED G89.29 - OTHER CHRONIC PAIN Assessment/Plan NEOPLASTIC WORKUP IN PROGRESS -> ONCO CONSULTED CONTINUE WORKUP WITH CLOSE MONITORING THYROID MASS -> WILL CONSULT HEAD & NECK SURG CALCITONIN FOR COMPRESSION FRACTURE VITAMIN D PAIN CONTROL DVT PROPHYLAXIS OFF ABx F/U 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
--- NOTE | 2016-03-12 12:03 | PN ---
Teaching Attending Note Name of Resident: Landry Cartwright ATTENDING PHYSICIAN STATEMENT I saw and evaluated the patient. I reviewed the resident's note and discussed the case with the resident. I agree with the resident's findings and plan as documented. SUBJECTIVE: Pt seen and examined in the ICU. Still some back pain. No shortness of breath or chest pain. OBJECTIVE: Last Vital Signs Temp Pulse Resp BP Pulse Ox 98.5 F 75 18 127/79 90 L 03/12/16 10:00 03/12/16 10:00 03/12/16 10:00 03/12/16 10:00 03/12/16 09:25 Intake & Output 03/09/16 03/10/16 03/11/16 03/12/16 23:59 23:59 23:59 23:59 Intake Total 3690 2955 2360 1000 Output Total 3100 2000 1450 Balance 590 099 300 9289 Weight 91 lb 11.2 oz 97 lb 14.4 oz Gen: NAD at rest Heart: RRR Lung: distant breath sounds, now wheezes Abd: soft, nontender Ext: no edema CBC, BMP 03/12/16 05:05 03/12/16 05:05 Active Medications Acetaminophen/Butalbital/Caffeine (Fioricet -) 1 tablet PO Q6H PRN PRN Reason: FEVER OR PAIN Last Admin: 03/11/16 18:40 Dose: 1 tablet Albuterol Sulfate (Ventolin 0.083% Nebulizer Soln -) 1 amp NEB Q4H PRN PRN Reason: SHORT OF BREATH/WHEEZING Albuterol/Ipratropium (Duoneb -) 1 amp NEB TIDR [facility] Last Admin: 03/12/16 07:04 Dose: Not Given Calcitonin (Miacalcin [place] -) 200 units NS DAILY [facility] Last Admin: 03/12/16 09:29 Dose: 200 units Chlorhexidine Gluconate (Hibiclens For Decolonization -) 1 applic TP HS [facility] Last Admin: 03/11/16 22:08 Dose: 1 applic Lidocaine (Lidoderm Patch -) 1 patch TP DAILY [facility] Last Admin: 03/12/16 09:30 Dose: 1 patch Morphine Sulfate (Morphine Injection -) 1.5 mg IVPUSH Q3H PRN PRN Reason: PAIN Last Admin: 03/12/16 10:31 Dose: 1.5 mg Mupirocin (Bactroban Ointment (For Decolonization) -) 1 applic NS BID [facility] Stop: 03/15/16 21:59 Last Admin: 03/12/16 09:29 Dose: 1 applic Ondansetron HCl (Zofran Injection) 4 mg IVPB Q8H PRN PRN Reason: NAUSEA Last Admin: 03/10/16 10:30 Dose: 4 mg Oxycodone HCl (Roxicodone -) 20 mg PO Q8H PRN Last Admin: 03/11/16 22:09 Dose: 20 mg Pantoprazole Sodium (Protonix -) 40 mg PO DAILY [facility] Last Admin: 03/12/16 09:24 Dose: 40 mg Potassium Chloride (K-Dur -) 40 meq PO DAILY [facility] Last Admin: 03/12/16 09:28 Dose: 40 meq Potassium Chloride (K-Dur -) 40 meq PO ONCE ONE Stop: 03/12/16 22:01 Pregabalin (Lyrica -) 100 mg PO BID [facility] Last Admin: 03/12/16 09:23 Dose: 100 mg Senna (Senna -) 1 tab PO HS [facility] Last Admin: 03/11/16 22:09 Dose: 1 tab ASSESSMENT AND PLAN: New Onset Seizure Altered Mental Status improved COPD Chronic Hypoxic Respiratory Failure Polycythemia Atelectasis Smoker - monitor off antibiotics - pain control - antiemetics - smoking cessation - PO as tolerated - DVT prophylaxis - will need to check ambulatory SpO2 when ready for discharge to assess for home O2 - can monitor on floor
--- NOTE | 2016-03-12 12:15 | PN ---
Progress Note, Physician History of Present Illness: Events noted Chart revwied Alert Complaints of low back pain MRI note d two areas of small attenuation ?? CVA vs HTN urgency No bleed Patient with ch hx of migarine and back pain Patient in on opiates and lyrica Patient is allergic to ASA - Current Medication List Current Medications: Active Medications Acetaminophen/Butalbital/Caffeine (Fioricet -) 1 tablet PO Q6H PRN PRN Reason: FEVER OR PAIN Last Admin: 03/11/16 18:40 Dose: 1 tablet Albuterol Sulfate (Ventolin 0.083% Nebulizer Soln -) 1 amp NEB Q4H PRN PRN Reason: SHORT OF BREATH/WHEEZING Albuterol/Ipratropium (Duoneb -) 1 amp NEB TIDR [facility] Last Admin: 03/12/16 07:04 Dose: Not Given Atorvastatin Calcium (Lipitor -) 20 mg PO HS [facility] Calcitonin (Miacalcin [place] -) 200 units NS DAILY [facility] Last Admin: 03/12/16 09:29 Dose: 200 units Chlorhexidine Gluconate (Hibiclens For Decolonization -) 1 applic TP HS [facility] Last Admin: 03/11/16 22:08 Dose: 1 applic Lidocaine (Lidoderm Patch -) 1 patch TP DAILY [facility] Last Admin: 03/12/16 09:30 Dose: 1 patch Morphine Sulfate (Morphine Injection -) 1.5 mg IVPUSH Q3H PRN PRN Reason: PAIN Last Admin: 03/12/16 10:31 Dose: 1.5 mg Mupirocin (Bactroban Ointment (For Decolonization) -) 1 applic NS BID [facility] Stop: 03/15/16 21:59 Last Admin: 03/12/16 09:29 Dose: 1 applic Ondansetron HCl (Zofran Injection) 4 mg IVPB Q8H PRN PRN Reason: NAUSEA Last Admin: 03/10/16 10:30 Dose: 4 mg Oxycodone HCl (Roxicodone -) 20 mg PO Q8H PRN Last Admin: 03/11/16 22:09 Dose: 20 mg Pantoprazole Sodium (Protonix -) 40 mg PO DAILY [facility] Last Admin: 03/12/16 09:24 Dose: 40 mg Potassium Chloride (K-Dur -) 40 meq PO DAILY [facility] Last Admin: 03/12/16 09:28 Dose: 40 meq Potassium Chloride (K-Dur -) 40 meq PO ONCE ONE Stop: 03/12/16 22:01 Pregabalin (Lyrica -) 100 mg PO BID [facility] Last Admin: 03/12/16 09:23 Dose: 100 mg Senna (Senna -) 1 tab PO HS [facility] Last Admin: 03/11/16 22:09 Dose: 1 tab - Objective Vital Signs: Vital Signs Temperature 98.5 F 03/12/16 10:00 Pulse Rate 75 03/12/16 10:00 Respiratory Rate 18 03/12/16 10:00 Blood Pressure 127/79 03/12/16 10:00 O2 Sat by Pulse Oximetry (%) 90 L 03/12/16 09:25 Constitutional: Yes: Well Nourished Eyes: Yes: WNL HENT: Yes: WNL Musculoskeletal: Yes: Back Pain, Joint Stiffness Neurological: Yes: Alert, Oriented, Babinski negative, Cran Nerves II-XII Intact ...Motor Strength: WNL Labs: CBC, BMP 03/12/16 05:05 03/12/16 05:05 INR, PTT INR 1.09 (0.82-1.09) 03/08/16 17:49 Problem List - Problems (1) Altered mental status Code(s): R41.82 - ALTERED MENTAL STATUS, UNSPECIFIED (2) Brain lesion Code(s): G93.9 - DISORDER OF BRAIN, UNSPECIFIED (3) New onset seizure Code(s): R56.9 - UNSPECIFIED CONVULSIONS Assessment/Plan Altered mental status Resolving No further seizure Medication induced Avoid Opiates Continue Lyrica pain management consult Seizure EEG report Seizure precautions no AED Abnormal MRI No ASA Plavix lipitor C Duplex Am lipid
--- NOTE | 2016-03-12 12:46 | PN ---
Progress Note, Physician History of Present Illness: No chest pain or dyspnea. No events overngiht. - Current Medication List Current Medications: Active Medications Acetaminophen/Butalbital/Caffeine (Fioricet -) 1 tablet PO Q6H PRN PRN Reason: FEVER OR PAIN Last Admin: 03/11/16 18:40 Dose: 1 tablet Albuterol Sulfate (Ventolin 0.083% Nebulizer Soln -) 1 amp NEB Q4H PRN PRN Reason: SHORT OF BREATH/WHEEZING Albuterol/Ipratropium (Duoneb -) 1 amp NEB TIDR [facility] Last Admin: 03/12/16 07:04 Dose: Not Given Atorvastatin Calcium (Lipitor -) 20 mg PO HS [facility] Calcitonin (Miacalcin [place] -) 200 units NS DAILY [facility] Last Admin: 03/12/16 09:29 Dose: 200 units Chlorhexidine Gluconate (Hibiclens For Decolonization -) 1 applic TP HS [facility] Last Admin: 03/11/16 22:08 Dose: 1 applic Clopidogrel Bisulfate (Plavix -) 75 mg PO DAILY [facility] Lidocaine (Lidoderm Patch -) 1 patch TP DAILY [facility] Last Admin: 03/12/16 09:30 Dose: 1 patch Morphine Sulfate (Morphine Injection -) 1.5 mg IVPUSH Q3H PRN PRN Reason: PAIN Last Admin: 03/12/16 10:31 Dose: 1.5 mg Mupirocin (Bactroban Ointment (For Decolonization) -) 1 applic NS BID [facility] Stop: 03/15/16 21:59 Last Admin: 03/12/16 09:29 Dose: 1 applic Ondansetron HCl (Zofran Injection) 4 mg IVPB Q8H PRN PRN Reason: NAUSEA Last Admin: 03/10/16 10:30 Dose: 4 mg Oxycodone HCl (Roxicodone -) 20 mg PO Q8H PRN Last Admin: 03/11/16 22:09 Dose: 20 mg Pantoprazole Sodium (Protonix -) 40 mg PO DAILY [facility] Last Admin: 03/12/16 09:24 Dose: 40 mg Potassium Chloride (K-Dur -) 40 meq PO DAILY [facility] Last Admin: 03/12/16 09:28 Dose: 40 meq Potassium Chloride (K-Dur -) 40 meq PO ONCE ONE Stop: 01/18/17 22:01 Pregabalin (Lyrica -) 100 mg PO BID [facility] Last Admin: 03/12/16 09:23 Dose: 100 mg Senna (Senna -) 1 tab PO HS [facility] Last Admin: 03/11/16 22:09 Dose: 1 tab - Objective Vital Signs: Vital Signs Temperature 98.5 F 03/12/16 10:00 Pulse Rate 75 03/12/16 10:00 Respiratory Rate 18 03/12/16 10:00 Blood Pressure 127/79 03/12/16 10:00 O2 Sat by Pulse Oximetry (%) 90 L 03/12/16 09:25 Constitutional: Yes: No Distress Eyes: Yes: Conjunctiva Clear, EOM Intact Cardiovascular: Yes: Regular Rate and Rhythm. No: JVD, Murmur Respiratory: Yes: CTA Bilaterally Edema: No Labs: CBC, BMP 03/12/16 05:05 03/12/16 05:05 INR, PTT INR 1.09 (0.82-1.09) 03/08/16 17:49 Assessment/Plan 60 yo female smoker, with asthma, COPD, migraines, chronic back pain -> on pain medication, and possible lung cancer (per family report). Admitted with reported seizure activity. Patient was also febrile with elevated WBC. Cardiology consulted for minimally elevated troponins without ECG changes. Low suspicion for ACS. Mild troponin elevations can be see with seizures. Elevated BNP but no clinical CHF. 03/12/16 Echocardiogram demonstrated normal LV size and systolic function, mild MR. RECS: Since echocardiogram is unremarkable, no further inpatient cardiac evaluation is clinically warranted. Patient does not need further cardiac monitoring and may be transferred to non- telemetry floor from cardiac standpoint. Will see prn. Call with questions.
[2016-03-12] MEDS: oxyCODONE HCL 5 MG TABLET PO PRN ×2 (13:04→20:58)
--- NOTE | 2016-03-12 13:47 | PN ---
Addendum entered and electronically signed by Landry Cartwright RES 03/12/16 14:13: severe protein calorie malnutrition in tge setting of inadequate PO intake with severe weight loss patient has low albumin and electrolyte abnormalities which reflect poor nutritional status Addendum entered and electronically signed by Landry Cartwright, RODDY 03/12/16 13:59: continue calcitonin and lidocaine patch f/u MRCP read Original Note: Progress Note, Physician History of Present Illness: patient seen and examined at bedside in the ICU no seizure activity still complaining of pain which has somewhat improved per patient - Current Medication List Current Medications: Active Medications Acetaminophen/Butalbital/Caffeine (Fioricet -) 1 tablet PO Q6H PRN PRN Reason: FEVER OR PAIN Last Admin: 03/11/16 18:40 Dose: 1 tablet Albuterol Sulfate (Ventolin 0.083% Nebulizer Soln -) 1 amp NEB Q4H PRN PRN Reason: SHORT OF BREATH/WHEEZING Albuterol/Ipratropium (Duoneb -) 1 amp NEB TIDR [facility] Last Admin: 03/12/16 07:04 Dose: Not Given Atorvastatin Calcium (Lipitor -) 20 mg PO HS [facility] Calcitonin (Miacalcin [place] -) 200 units NS DAILY [facility] Last Admin: 03/12/16 09:29 Dose: 200 units Chlorhexidine Gluconate (Hibiclens For Decolonization -) 1 applic TP HS [facility] Last Admin: 03/11/16 22:08 Dose: 1 applic Clopidogrel Bisulfate (Plavix -) 75 mg PO DAILY [facility] Lidocaine (Lidoderm Patch -) 1 patch TP DAILY [facility] Last Admin: 03/12/16 09:30 Dose: 1 patch Morphine Sulfate (Morphine Injection -) 1.5 mg IVPUSH Q3H PRN PRN Reason: PAIN Last Admin: 03/12/16 10:31 Dose: 1.5 mg Mupirocin (Bactroban Ointment (For Decolonization) -) 1 applic NS BID [facility] Stop: 03/15/16 21:59 Last Admin: 03/12/16 09:29 Dose: 1 applic Ondansetron HCl (Zofran Injection) 4 mg IVPB Q8H PRN PRN Reason: NAUSEA Last Admin: 03/10/16 10:30 Dose: 4 mg Oxycodone HCl (Roxicodone -) 20 mg PO Q8H PRN Last Admin: 03/12/16 13:04 Dose: 20 mg Pantoprazole Sodium (Protonix -) 40 mg PO DAILY [facility] Last Admin: 03/12/16 09:24 Dose: 40 mg Potassium Chloride (K-Dur -) 40 meq PO DAILY [facility] Last Admin: 03/12/16 09:28 Dose: 40 meq Potassium Chloride (K-Dur -) 40 meq PO ONCE ONE Stop: 03/12/16 22:01 Pregabalin (Lyrica -) 100 mg PO BID [facility] Last Admin: 03/12/16 09:23 Dose: 100 mg Senna (Senna -) 1 tab PO HS [facility] Last Admin: 03/11/16 22:09 Dose: 1 tab - Objective Vital Signs: Vital Signs Temperature 98.5 F 03/12/16 10:00 Pulse Rate 75 03/12/16 10:00 Respiratory Rate 18 03/12/16 10:00 Blood Pressure 127/79 03/12/16 10:00 O2 Sat by Pulse Oximetry (%) 90 L 03/12/16 09:25 Constitutional: Yes: No Distress Eyes: Yes: Conjunctiva Clear HENT: Yes: Atraumatic Cardiovascular: Yes: Regular Rate and Rhythm Respiratory: Yes: CTA Bilaterally Gastrointestinal: Yes: Normal Bowel Sounds, Soft Musculoskeletal: Yes: Back Pain, Muscle Pain Neurological: Yes: Alert, Oriented Labs: CBC, BMP 03/12/16 05:05 03/12/16 05:05 INR, PTT INR 1.09 (0.82-1.09) 03/08/16 17:49 Assessment/Plan 60F with COPD presented to the D with new onset seizure New onset seizure MRI reading consistent with hypertensive insult patient did not have hypertension on presentation and denies a history of HTN f/u neurology no further seizures will continue to observe off AEDs TFTs - WNL continue to monitor off ABx MELODY and latex for elevated ESR Thyroid Mass: Spoke to interventional radiology and Dr. Shahriar wall get US and possible FNA as outpt patient had a mass present on CT about 8 years ago and has minimally grown Bases on TFTs patient with wither need a scan or US with FNA likely US with FNA as patient is not hyperthyroid AMS: likely post-ictal at the time resolved COPD/atelectais: continue albuterol continue say counselled on quitting smoking states doing well off nicotine and does not plan on restating smoking will need ambulatory saturation before discharge Polycythemia: asymptomatic at this time outpt follow up FEN: No IVF replete potassium regular diet PPx: SCDs Protonix PT consult
[2016-03-12] MEDS: ACETAMINOPHEN/CAFFEINE/BUTALBITAL 1 TAB PO PRN ×2 (14:57→21:00)
--- NOTE | 2016-03-12 18:05 | CONSULT ---
Consult - text type - Consultation Consultation Note: Patient is a 60 year old female, with a significant past medical history of asthma, COPD, migraines, chronic back pain(on pain medication) and possible lung cancer per family members, who presents to the emergency department via EMS with family complaining of convulsion. The son notes that he found the patient in tonic-clonic seizure and patient has no history of seizure. She has had decreased appetite, diffused body aches and vomiting. According to family she has no history of alcohol or illicit drug use. She sees pain mangement for chronic back pain. Lost 20lbs in last 2 months per patient --baseline wt.116lbs Has chronic back pain. no bowel/bladder symptoms Past History Asthma: Yes COPD: Yes - Surgical History none - Psycho/Social/Smoking Cessation Hx smoker - Past Medical History Allergies/Adverse Reactions: Allergies Allergy/AdvReac Type Severity Reaction Status Date / Time aspirin Allergy Verified 03/08/16 16:54 ibuprofen AdvReac Verified 03/08/16 16:54 Home Medications: Ambulatory Orders Pregabalin [Lyrica] 150 mg PO DAILY 07/16/13 Acetaminophen/Caffeine/Butalb [Fioricet -] 1 tab PO Q4H PRN 04/26/15 Albuterol Sulfate Inhaler - [Ventolin Hfa Inhaler -] 1 - 2 inh PO QID 04/27/15 Hydrocodone/Acetaminophen [Vicodin 5-300 mg Tablet] 1 each PO PRN MDD 6 Current Medications Acetaminophen/Butalbital/Caffeine (Fioricet -) 1 tablet PO Q6H PRN PRN Reason: FEVER OR PAIN Last Admin: 03/12/16 14:57 Dose: 1 tablet Albuterol Sulfate (Ventolin 0.083% Nebulizer Soln -) 1 amp NEB Q4H PRN PRN Reason: SHORT OF BREATH/WHEEZING Albuterol/Ipratropium (Duoneb -) 1 amp NEB TIDR [facility] Last Admin: 03/12/16 13:45 Dose: 1 amp Atorvastatin Calcium (Lipitor -) 20 mg PO HS [facility] Calcitonin (Miacalcin [place] -) 200 units NS DAILY [facility] Last Admin: 03/12/16 09:29 Dose: 200 units Chlorhexidine Gluconate (Hibiclens For Decolonization -) 1 applic TP HS [facility] Last Admin: 03/11/16 22:08 Dose: 1 applic Clopidogrel Bisulfate (Plavix -) 75 mg PO DAILY [facility] Lidocaine (Lidoderm Patch -) 1 patch TP DAILY [facility] Last Admin: 03/12/16 09:30 Dose: 1 patch Morphine Sulfate (Morphine Injection -) 1.5 mg IVPUSH Q3H PRN PRN Reason: PAIN Last Admin: 03/12/16 16:52 Dose: 2 mg Mupirocin (Bactroban Ointment (For Decolonization) -) 1 applic NS BID [facility] Stop: 03/15/16 21:59 Last Admin: 03/12/16 09:29 Dose: 1 applic Ondansetron HCl (Zofran Injection) 4 mg IVPB Q8H PRN PRN Reason: NAUSEA Last Admin: 03/10/16 10:30 Dose: 4 mg Oxycodone HCl (Roxicodone -) 20 mg PO Q8H PRN Last Admin: 03/12/16 13:04 Dose: 20 mg Pantoprazole Sodium (Protonix -) 40 mg PO DAILY [facility] Last Admin: 03/12/16 09:24 Dose: 40 mg Potassium Chloride (K-Dur -) 40 meq PO DAILY [facility] Last Admin: 03/12/16 09:28 Dose: 40 meq Potassium Chloride (K-Dur -) 40 meq PO ONCE ONE Stop: 03/12/16 22:01 Pregabalin (Lyrica -) 100 mg PO BID [facility] Last Admin: 03/12/16 09:23 Dose: 100 mg Senna (Senna -) 1 tab PO HS [facility] Last Admin: 03/11/16 22:09 Dose: 1 tab - Vital Signs Last Vital Signs Temp Pulse Resp BP Pulse Ox 98.2 F 74 18 107/65 90 L 03/12/16 14:00 03/12/16 14:00 03/12/16 14:00 03/12/16 14:00 03/12/16 09:25 Cachectic HEENT: RAI, EOM Intact Cor: RSR, No murmurs, No gallops Lungs:decreased Lt. base breath sounds Abd: Soft, Normal bowel sounds, No organomegaly Ext:No significant edema Abnormal Lab Results 03/12/16 03/12/16 05:05 05:05 Plt Count 114 L Potassium 3.3 L Carbon Dioxide 34 H Anion Gap 4 L BUN 6 L Creatinine 0.4 L Calcium 8.0 L - RADIOLOGY EXAM#: CT/HEAD CT WITHOUT CONTRAST Cranial CT without contrast Clinical information: seizure, evaluate for mass lesion In comparison to a previous CT exam of 07/16/2013 note is made of interval development of a small 1 cm low-attenuation focus within the right posterior frontal lobe at the high convexity level as well as a similar 1 cm focus within the left posterior frontal lobe. No associated mass effect is seen. On the basis of this exam it is uncertain whether these foci represents microvascular ischemic gliosis, chronic or subacute infarction versus less likely representing subtle edema due to underlying lesions. No discrete lesion can be identified on this noncontrast exam. The remainder of the exam appears unchanged. There is no extra-axial fluid collection. No midline displacement is seen. The ventricles and cisterns appear unremarkable. Involutional changes are noted. Impression: In comparison to a prior CT study of 07/16/2013 interval development of small 1 cm right and left posterior frontal hypodensity subcortical foci noted as discussed. Plan 60 year old female, with a significant past medical history of asthma, COPD, migraines, chronic back pain who presents to the emergency department via EMS with family complaining of convulsion. CT head demonstrated small 1cm area of hypodensity. MRI showed subcortical rt. post. temporal/parietal occipital lesions ? Hypertensive encephalopathy vs CVA vs TMA CT chest -- COPD--enlarged isthmus of thyroid gland. T5 fx MRCP--signal abnormality of liver -lt. lobe--need to f/u, atrophic pancreas will need further w/u of thyroid isthmus mass. will get endocrine consult will consider PET-CT outpatient Secondary polycythemia -- due to COPD. Check JAK2/epolevel, bcr;abl chronic thrombocytopenia
[2016-03-12] MEDS ORDERED: POTASSIUM CHLORIDE TABS 20 MEQ TABLET.ER (FP) PO ONE (22:00)
[2016-03-12] MEDS: CHLORHEXIDINE GLUCONATE 4% CLEANSER FOR DECOLONIZATION TP SCH (22:07)
[2016-03-12] MEDS: ATORVASTATIN CA 20 MG TABLET (FP) PO SCH (22:23)
[2016-03-12] MEDS: SENNOSIDES 8.6MG TABLET (FP) PO SCH (22:23)
[2016-03-13] MEDS: morphine CARPU-JECT 2 MG/1 ML DISP.SYRIN IVPUSH PRN ×6 (00:10→21:59)
[2016-03-13] MEDS: oxyCODONE HCL 5 MG TABLET PO PRN ×2 (05:41→15:45)
[2016-03-13] MEDS: ALBUTEROL SO4 2.5/IPRATROPIUM 0.5 INH SOL 3 ML VIAL.NEB. NEB SCH ×3 (07:34→21:42)
[2016-03-13 08:22] LABS: BASOPHIL 0.4 % (0-2.0); EOSINOPHIL 3.5 % (0-4.5); MCH 31.5 pg (25.7-33.7); MCHC 33.6 g/dl (32.0-36.0); MEAN CELL VOLUME 93.8 fl (80-96); MEAN PLT VOLUME 11.3 fl (7.5-11.1); NEUTROPHILS 60.7 % (42.8-82.8); PLATELET COUNT 141 K/MM3 (134-434); RDW 14.6 % (11.6-15.6); WHITE BLOOD COUNT 8.6 K/mm3 (4.0-10.0)
[2016-03-13 08:43] LABS: ALBUMIN 3.1 g/dl (3.4-5.0); ANION GAP -2 (8-16); BILIRUBIN,TOTAL 0.9 mg/dL (0.2-1.0); CALCIUM 9.4 mg/dL (8.5-10.1); CO2 31 mmol/L (21-32); CREATININE 0.5 mg/dL (0.55-1.02); GLUCOSE,RANDOM 87 mg/dL (74-106); PHOSPHOROUS 3.1 mg/dL (2.5-4.9); SGOT/AST 15 U/L (15-37); SGPT/ALT 31 U/L (12-78); TOT PROT 5.8 g/dl (6.4-8.2)
[2016-03-13 08:44] LABS: ALK PHOS 168 U/L (45-117)
[2016-03-13 08:58] LABS: CREATININE 0.5 mg/dL (0.55-1.02)
--- NOTE | 2016-03-13 09:05 | CONSULT ---
Consult Consult Specialty:: Surgery Referred by:: Shahriar Herrera Reason for Consultation:: Enlarging thyroid nodule. - History of Present Illness Chief Complaint: Patient is admitted for seizures and undergoing workup. 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 normalization) Pulmonary: Yes: COPD, Other (QUESTION LUNG CA) Gastrointestinal: Yes: Other (GASTRIC MASS?? PER FAMILY) ...: No - Alcohol/Substance Use Hx Alcohol Use: No - Smoking History Smoking history: Current every day smoker Have you smoked in the past 12 months: Yes Aproximately how many cigarettes per day: 10 - Social History Usual Living Arrangement: With Child Home Medications - Allergies Allergies/Adverse Reactions: Allergies Allergy/AdvReac Type Severity Reaction Status Date / Time aspirin Allergy Verified 03/08/16 16:54 ibuprofen AdvReac Verified 03/08/16 16:54 - Home Medications Home Medications: Ambulatory Orders Pregabalin [Lyrica] 200 mg PO TID 07/16/13 Acetaminophen/Caffeine/Butalb [Fioricet -] 1 tab PO TID PRN 04/26/15 Albuterol Sulfate Inhaler - [Ventolin Hfa Inhaler -] 1 inh PO BID PRN 04/27/15 Hydrocodone/Acetaminophen [Vicodin 5-300 mg Tablet] 1 each PO PRN MDD 6 Oxycodone HCl 20 mg TID PRN 03/10/16 Physical Exam Vital Signs: Vital Signs Temperature 99.9 F H 03/13/16 06:00 Pulse Rate 100 H 03/13/16 06:00 Respiratory Rate 20 03/13/16 06:00 Blood Pressure 110/69 03/13/16 06:00 O2 Sat by Pulse Oximetry (%) 90 L 03/12/16 22:00 Neck: Yes: Other (The thyroid is not palpable. There is a nodule palpable to the left of the trachea, inferiorly, extending below the clavicle. There is no lymphadenopathy. Trachea is central.) Labs: CBC, BMP 03/13/16 07:00 03/13/16 07:00 Imaging - Results Cat Scan: Report Reviewed, Image Reviewed Problem List - Problems (1) Thyroid mass Code(s): E07.9 - DISORDER OF THYROID, UNSPECIFIED (2) Brain lesion Code(s): G93.9 - DISORDER OF BRAIN, UNSPECIFIED (3) Convulsions Code(s): R56.9 - UNSPECIFIED CONVULSIONS (4) Hypertension Code(s): I10 - ESSENTIAL (PRIMARY) HYPERTENSION (5) COPD (chronic obstructive pulmonary disease) Code(s): J44.9 - CHRONIC OBSTRUCTIVE PULMONARY DISEASE, UNSPECIFIED Assessment/Plan Thyroid nodule in isthmus, enlarging in size, as per CT scan of the neck. The nodule is vaguely palpable to the left of the trachea inferiorly. Thyroid ultrasound requested. Will need FNA biopsy and lobectomy, electively, after complete workup for current problems. Will follow.
[2016-03-13] MEDS: BACITRACIN 30 GM TUBE TOPICAL OINTMENT TP SCH (10:43)
[2016-03-13] MEDS: LIDOCAINE 5% TOPICAL PATCH TP SCH (10:43)
[2016-03-13] MEDS: POTASSIUM CHLORIDE TABS 20 MEQ TABLET.ER (FP) PO SCH (10:43)
[2016-03-13] MEDS: CALCITONIN - SALMON SYNTHETIC 3.7 ML SPRAY.PUMP NS SCH (10:44)
[2016-03-13] MEDS: PANTOPRAZOLE 40 MG TABLET (FP) PO SCH (10:44)
[2016-03-13] MEDS: PREGABALIN 50 MG CAPSULE PO SCH ×2 (10:44→21:55)
[2016-03-13] MEDS: CLOPIDOGREL BISULFATE 75 MG TABLET (FP) PO SCH (10:44)
--- NOTE | 2016-03-13 11:06 | PN ---
Progress Note (short form) - Note Progress Note: No acute events overnight. No shortness of breath or chest pain. Intake & Output 03/10/16 03/11/16 03/12/16 03/13/16 23:59 23:59 23:59 23:59 Intake Total 2955 2360 1180 180 Output Total 1999 1450 Balance 523 041 9857 180 Weight 97 lb 14.4 oz 97 lb 6 oz Last Vital Signs Temp Pulse Resp BP Pulse Ox 99.9 F H 100 H 20 110/69 90 L 03/13/16 06:00 03/13/16 06:00 03/13/16 06:00 03/13/16 06:00 03/12/16 22:00 Active Medications Acetaminophen/Butalbital/Caffeine (Fioricet -) 1 tablet PO Q6H PRN PRN Reason: FEVER OR PAIN Last Admin: 03/12/16 21:00 Dose: 1 tablet Albuterol Sulfate (Ventolin 0.083% Nebulizer Soln -) 1 amp NEB Q4H PRN PRN Reason: SHORT OF BREATH/WHEEZING Albuterol/Ipratropium (Duoneb -) 1 amp NEB TIDR [facility] Last Admin: 03/13/16 07:34 Dose: Not Given Atorvastatin Calcium (Lipitor -) 20 mg PO HS [facility] Last Admin: 03/12/16 22:23 Dose: 20 mg Bacitracin (Bacitracin -) 1 applic TP DAILY [facility] Last Admin: 03/13/16 10:43 Dose: 1 applic Calcitonin (Miacalcin [place] -) 200 units NS DAILY [facility] Last Admin: 03/13/16 10:44 Dose: 200 units Clopidogrel Bisulfate (Plavix -) 75 mg PO DAILY [facility] Last Admin: 03/13/16 10:44 Dose: 75 mg Lidocaine (Lidoderm Patch -) 1 patch TP DAILY [facility] Last Admin: 03/13/16 10:43 Dose: 1 patch Morphine Sulfate (Morphine Injection -) 1.5 mg IVPUSH Q3H PRN PRN Reason: PAIN Last Admin: 03/13/16 08:11 Dose: 1.5 mg Ondansetron HCl (Zofran Injection) 4 mg IVPB Q8H PRN PRN Reason: NAUSEA Last Admin: 03/10/16 10:30 Dose: 4 mg Oxycodone HCl (Roxicodone -) 20 mg PO Q8H PRN Last Admin: 03/13/16 05:41 Dose: 20 mg Pantoprazole Sodium (Protonix -) 40 mg PO DAILY [facility] Last Admin: 03/13/16 10:44 Dose: 40 mg Potassium Chloride (K-Dur -) 40 meq PO DAILY [facility] Last Admin: 03/13/16 10:43 Dose: 40 meq Pregabalin (Lyrica -) 100 mg PO BID [facility] Last Admin: 03/13/16 10:44 Dose: 100 mg Senna (Senna -) 1 tab PO HS [facility] Last Admin: 03/12/16 22:23 Dose: 1 tab Gen: NAD at rest Heart: RRR Lung: distant breath sounds, now wheezes Abd: soft, nontender Ext: no edema Laboratory Results - last 24 hr 03/13/16 03/13/16 03/13/16 07:00 07:00 07:00 WBC 8.6 RBC 5.10 Hgb 16.1 H Hct 47.8 H MCV 93.8 MCHC 33.6 RDW 14.6 Plt Count 141 D MPV 11.3 H Neutrophils % 60.7 Lymphocytes % 21.8 D Monocytes % 13.6 H Eosinophils % 3.5 D Basophils % 0.4 ESR Sodium 131 L 137 Potassium 4.5 D 4.5 Chloride 102 101 Carbon Dioxide 31 29 Anion Gap -2 L 7 L BUN 8 D 9 Creatinine 0.5 L D 0.5 L Creat Clearance w eGFR > 60 Random Glucose 87 90 Calcium 9.4 9.0 Phosphorus 3.1 Total Bilirubin 0.9 D AST 15 ALT 31 Alkaline Phosphatase 168 H LD Total 202 C-Reactive Protein Total Protein 5.8 L D Albumin 3.1 L D Triglycerides 68 Cholesterol 150 Total LDL Cholesterol 85 HDL Cholesterol 50 03/13/16 03/13/16 07:00 07:00 WBC RBC Hgb Hct MCV MCHC RDW Plt Count MPV Neutrophils % Lymphocytes % Monocytes % Eosinophils % Basophils % ESR 5 Sodium Potassium Chloride Carbon Dioxide Anion Gap BUN Creatinine Creat Clearance w eGFR Random Glucose Calcium Phosphorus Total Bilirubin AST ALT Alkaline Phosphatase LD Total C-Reactive Protein 3.6 H D Total Protein Albumin Triglycerides Cholesterol Total LDL Cholesterol HDL Cholesterol ASSESSMENT AND PLAN: New Onset Seizure Altered Mental Status improved COPD Chronic Hypoxic Respiratory Failure Polycythemia Atelectasis Smoker - Monitor off antibiotics - pain control - smoking cessation - PO as tolerated - DVT prophylaxis - O2 as needed - Prior to D/C will need to check ambulatory SpO2 when ready for discharge to assess for home O2 Dr Doll
--- NOTE | 2016-03-13 19:20 | PN ---
GI Progress Note Subjective: unexplained weight loss, early satiety, thickenning of the left colon , MRI left lobe lesion of unclear etiology, thyroid nodule - Objective Vital Signs: Vital Signs Temperature 100.0 F H 03/13/16 16:45 Pulse Rate 97 H 03/13/16 16:45 Respiratory Rate 20 03/13/16 16:45 Blood Pressure 113/78 03/13/16 16:45 O2 Sat by Pulse Oximetry (%) 93 L 03/13/16 08:00 Constitutional: Well Nourished Eyes: Yes: Conjunctiva Clear HENT: Yes: Atraumatic Neck: Yes: Supple Cardiovascular: Yes: Regular Rate and Rhythm Respiratory: Yes: CTA Bilaterally ...Palpate: Yes: Soft. No: Firm/Rigid, Guarding, Hepatomegaly, Mass, Pulsatile Mass, Splenomegaly, Tenderness Labs: CBC, BMP 03/13/16 07:00 03/13/16 07:00 INR, PTT INR 1.09 (0.82-1.09) 03/08/16 17:49 Problem List - Problems (1) Unexplained weight loss Assessment/Plan: associated with early satiety R> will need EGD and colonoscopy prior to discharge--patient refused endoscopi procedures, understands risk of undetected malignancy Code(s): R63.4 - ABNORMAL WEIGHT LOSS
--- NOTE | 2016-03-13 19:43 | PN ---
Progress Note, Physician - Current Medication List Current Medications: Active Medications Acetaminophen/Butalbital/Caffeine (Fioricet -) 1 tablet PO Q6H PRN PRN Reason: FEVER OR PAIN Last Admin: 03/12/16 21:00 Dose: 1 tablet Albuterol Sulfate (Ventolin 0.083% Nebulizer Soln -) 1 amp NEB Q4H PRN PRN Reason: SHORT OF BREATH/WHEEZING Albuterol/Ipratropium (Duoneb -) 1 amp NEB TIDR [facility] Last Admin: 03/13/16 14:26 Dose: Not Given Atorvastatin Calcium (Lipitor -) 20 mg PO HS [facility] Last Admin: 03/12/16 22:23 Dose: 20 mg Bacitracin (Bacitracin -) 1 applic TP DAILY [facility] Last Admin: 03/13/16 10:43 Dose: 1 applic Calcitonin (Miacalcin [place] -) 200 units NS DAILY [facility] Last Admin: 03/13/16 10:44 Dose: 200 units Clopidogrel Bisulfate (Plavix -) 75 mg PO DAILY [facility] Last Admin: 03/13/16 10:44 Dose: 75 mg Lidocaine (Lidoderm Patch -) 1 patch TP DAILY [facility] Last Admin: 03/13/16 10:43 Dose: 1 patch Morphine Sulfate (Morphine Injection -) 1.5 mg IVPUSH Q3H PRN PRN Reason: PAIN Last Admin: 03/13/16 18:48 Dose: 1.5 mg Ondansetron HCl (Zofran Injection) 4 mg IVPB Q8H PRN PRN Reason: NAUSEA Last Admin: 03/10/16 10:30 Dose: 4 mg Pantoprazole Sodium (Protonix -) 40 mg PO DAILY [facility] Last Admin: 03/13/16 10:44 Dose: 40 mg Potassium Chloride (K-Dur -) 40 meq PO DAILY [facility] Last Admin: 03/13/16 10:43 Dose: 40 meq Pregabalin (Lyrica -) 100 mg PO BID [facility] Last Admin: 03/13/16 10:44 Dose: 100 mg Senna (Senna -) 1 tab PO HS [facility] Last Admin: 03/12/16 22:23 Dose: 1 tab - Objective Vital Signs: Vital Signs Temperature 100.0 F H 03/13/16 16:45 Pulse Rate 97 H 03/13/16 16:45 Respiratory Rate 20 03/13/16 16:45 Blood Pressure 113/78 03/13/16 16:45 O2 Sat by Pulse Oximetry (%) 93 L 03/13/16 08:00 Cardiovascular: Yes: Regular Rate and Rhythm, S1, S2 Respiratory: Yes: CTA Bilaterally Gastrointestinal: Yes: Normal Bowel Sounds, Soft Labs: CBC, BMP 03/13/16 07:00 03/13/16 07:00 INR, PTT INR 1.09 (0.82-1.09) 03/08/16 17:49 Problem List - Problems (1) Altered mental status Code(s): R41.82 - ALTERED MENTAL STATUS, UNSPECIFIED (2) Brain lesion Code(s): G93.9 - DISORDER OF BRAIN, UNSPECIFIED (3) Elevated troponin Code(s): R79.89 - OTHER SPECIFIED ABNORMAL FINDINGS OF BLOOD CHEMISTRY (4) Fever Code(s): R50.9 - FEVER, UNSPECIFIED (5) New onset seizure Code(s): R56.9 - UNSPECIFIED CONVULSIONS Assessment/Plan (1) Altered mental status Code(s): R41.82 - ALTERED MENTAL STATUS, UNSPECIFIED (2) Brain lesion Code(s): G93.9 - DISORDER OF BRAIN, UNSPECIFIED (3) Cancer Code(s): C80.1 - MALIGNANT (PRIMARY) NEOPLASM, UNSPECIFIED (4) Elevated troponin Code(s): R79.89 - OTHER SPECIFIED ABNORMAL FINDINGS OF BLOOD CHEMISTRY (5) Fall Code(s): W19.XXXA - UNSPECIFIED FALL, INITIAL ENCOUNTER (6) Fever Code(s): R50.9 - FEVER, UNSPECIFIED (7) Hypokalemia Code(s): E87.6 - HYPOKALEMIA (8) Hypoxemia Code(s): R09.02 - HYPOXEMIA (9) New onset seizure Code(s): R56.9 - UNSPECIFIED CONVULSIONS (10) Polycythemia Code(s): D75.1 - SECONDARY POLYCYTHEMIA (11) Chronic back pain Code(s): M54.9 - DORSALGIA, UNSPECIFIED G89.29 - OTHER CHRONIC PAIN Assessment/Plan NEOPLASTIC WORKUP IN PROGRESS -> ONCO CONSULTED CONTINUE WORKUP WITH CLOSE MONITORING THYROID MASS -> WILL CONSULT HEAD & NECK SURG CALCITONIN FOR COMPRESSION FRACTURE VITAMIN D PAIN CONTROL DVT PROPHYLAXIS OFF ABx F/U BRAIN MRI PASTOR FRANCES
--- NOTE | 2016-03-13 19:55 | PN ---
Progress Note (short form) - Note Progress Note: Patient seen and examined c/o back pain Last Vital Signs Temp Pulse Resp BP Pulse Ox 100.0 F H 97 H 20 113/78 93 L 03/13/16 16:45 03/13/16 16:45 03/13/16 16:45 03/13/16 16:45 03/13/16 08:00 HEENT: RAI, EOM Intact Oropharynx: No thrush, No mucositis Cor: RSR, No murmurs, No gallops Lungs: Clear to P&A Abd: Soft, Normal bowel sounds, No organomegaly Abnormal Lab Results 03/13/16 03/13/16 03/13/16 07:00 07:00 07:00 Hgb 16.1 H Hct 47.8 H MPV 11.3 H Monocytes % 13.6 H Sodium 131 L Anion Gap -2 L 7 L Creatinine 0.5 L D 0.5 L Alkaline Phosphatase 168 H C-Reactive Protein Total Protein 5.8 L D Albumin 3.1 L D 03/13/16 07:00 Hgb Hct MPV Monocytes % Sodium Anion Gap Creatinine Alkaline Phosphatase C-Reactive Protein 3.6 H D Total Protein Albumin Current Medications Acetaminophen/Butalbital/Caffeine (Fioricet -) 1 tablet PO Q6H PRN PRN Reason: FEVER OR PAIN Last Admin: 03/12/16 21:00 Dose: 1 tablet Albuterol Sulfate (Ventolin 0.083% Nebulizer Soln -) 1 amp NEB Q4H PRN PRN Reason: SHORT OF BREATH/WHEEZING Albuterol/Ipratropium (Duoneb -) 1 amp NEB TIDR [facility] Atorvastatin Calcium (Lipitor -) 20 mg PO HS [facility] Last Admin: 03/12/16 22:23 Dose: 20 mg Bacitracin (Bacitracin -) 1 applic TP DAILY [facility] Last Admin: 03/13/16 10:43 Dose: 1 applic Calcitonin (Miacalcin [place] -) 200 units NS DAILY [facility] Last Admin: 03/13/16 10:44 Dose: 200 units Clopidogrel Bisulfate (Plavix -) 75 mg PO DAILY [facility] Last Admin: 03/13/16 10:44 Dose: 75 mg Lidocaine (Lidoderm Patch -) 1 patch TP DAILY [facility] Last Admin: 03/13/16 10:43 Dose: 1 patch Morphine Sulfate (Morphine Injection -) 1.5 mg IVPUSH Q3H PRN PRN Reason: PAIN Ondansetron HCl (Zofran Injection) 4 mg IVPB Q8H PRN PRN Reason: NAUSEA Pantoprazole Sodium (Protonix -) 40 mg PO DAILY [facility] Potassium Chloride (K-Dur -) 40 meq PO DAILY [facility] Pregabalin (Lyrica -) 100 mg PO BID [facility] Senna (Senna -) 1 tab PO HS [facility] A/P 60 year old female, with a significant past medical history of asthma, COPD, migraines, chronic back pain who presents to the emergency department via EMS with family complaining of convulsion. CT head demonstrated small 1cm area of hypodensity. MRI showed subcortical rt. post. temporal/parietal occipital lesions ? Hypertensive encephalopathy vs CVA vs TMA CT chest -- COPD--enlarged isthmus of thyroid gland. T5 fx MRCP--signal abnormality of liver -lt. lobe--need to f/u, atrophic pancreas will need further w/u of thyroid isthmus mass. will get endocrine consult getting thyroid u/s will consider PET-CT outpatient Secondary polycythemia -- due to COPD. Check JAK2/epolevel, bcr;abl chronic thrombocytopenia Weight loss--refusing gi w/u will check bone scan
[2016-03-13] MEDS ORDERED: ONDANSETRON 4 MG/2 ML VIAL IVPB PRN (20:05)
[2016-03-13] MEDS ORDERED: ALBUTEROL SO4 0.083% IH SOL 2.5 MG/3 ML VIAL.NEB. NEB PRN (20:05)
--- NOTE | 2016-03-13 20:38 | CONSULT ---
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 normalization) Pulmonary: Yes: COPD, Other (QUESTION LUNG CA) Gastrointestinal: Yes: Other (GASTRIC MASS?? PER FAMILY) ...: No - Alcohol/Substance Use Hx Alcohol Use: No - Smoking History Smoking history: Current every day smoker Have you smoked in the past 12 months: Yes Aproximately how many cigarettes per day: 10 - Social History Usual Living Arrangement: With Child Home Medications - Allergies Allergies/Adverse Reactions: Allergies Allergy/AdvReac Type Severity Reaction Status Date / Time aspirin Allergy Verified 03/08/16 16:54 ibuprofen AdvReac Verified 03/08/16 16:54 - Home Medications Home Medications: Ambulatory Orders Pregabalin [Lyrica] 200 mg PO TID 07/16/13 Acetaminophen/Caffeine/Butalb [Fioricet -] 1 tab PO TID PRN 04/26/15 Albuterol Sulfate Inhaler - [Ventolin Hfa Inhaler -] 1 inh PO BID PRN 04/27/15 Hydrocodone/Acetaminophen [Vicodin 5-300 mg Tablet] 1 each PO PRN MDD 6 Oxycodone HCl 20 mg TID PRN 03/10/16 Review of Systems - Review of Systems Constitutional: reports: Lethargy, Unintentional Wgt. Loss Eyes: reports: No Symptoms HENT: reports: Throat Pain Neck: reports: Decreased ROM Cardiovascular: reports: No Symptoms Respiratory: reports: Orthopnea, SOB on Exertion Gastrointestinal: reports: Bloating Genitourinary: reports: No Symptoms Breasts: reports: No Symptoms Reported Musculoskeletal: reports: Joint Pain, Muscle Pain, Muscle Cramps Integumentary: reports: No Symptoms Neurological: reports: Seizure, Weakness Endocrine: reports: Unexplained Weight Loss Physical Exam Vital Signs: Vital Signs Temperature 100.0 F H 03/13/16 16:45 Pulse Rate 97 H 03/13/16 16:45 Respiratory Rate 20 03/13/16 16:45 Blood Pressure 113/78 03/13/16 16:45 O2 Sat by Pulse Oximetry (%) 93 L 03/13/16 08:00 Constitutional: Yes: Calm Eyes: Yes: EOM Intact HENT: Yes: Normocephalic Neck: Yes: Thyromegaly (palpable thyroid nodule isthmus) Cardiovascular: Yes: Tachycardia Respiratory: Yes: CTA Bilaterally Gastrointestinal: Yes: Normal Bowel Sounds ...Rectal Exam: Yes: Deferred Renal/: Yes: WNL Musculoskeletal: Yes: WNL Extremities: Yes: WNL Neurological: Yes: Alert, Oriented ...Motor Strength: WNL Labs: CBC, BMP 03/13/16 07:00 03/13/16 07:00 Problem List - Problems (1) Brain lesion Code(s): G93.9 - DISORDER OF BRAIN, UNSPECIFIED (2) Convulsions Code(s): R56.9 - UNSPECIFIED CONVULSIONS (3) Thyroid nodule Code(s): E04.1 - NONTOXIC SINGLE THYROID NODULE Assessment/Plan thyroid isthmus nodule r/o thyroid neoplasm copd ashd seizures Current Active Problems Altered mental status (Acute) Brain lesion (Acute) COPD (chronic obstructive pulmonary disease) (Acute) Cancer (Acute) Convulsions (Acute) Elevated troponin (Acute) Fall (Acute) Fever (Acute) Hypertension (Acute) Hypokalemia (Acute) Hypoxemia (Acute) New onset seizure (Acute) Polycythemia (Acute) Thyroid mass (Acute) Unexplained weight loss (Acute) Laboratory Results - last 24 hr 03/13/16 03/13/16 03/13/16 07:00 07:00 07:00 WBC 8.6 RBC 5.10 Hgb 16.1 H Hct 47.8 H MCV 93.8 MCHC 33.6 RDW 14.6 Plt Count 141 D MPV 11.3 H Neutrophils % 60.7 Lymphocytes % 21.8 D Monocytes % 13.6 H Eosinophils % 3.5 D Basophils % 0.4 ESR Sodium 131 L 137 Potassium 4.5 D 4.5 Chloride 102 101 Carbon Dioxide 31 29 Anion Gap -2 L 7 L BUN 8 D 9 Creatinine 0.5 L D 0.5 L Creat Clearance w eGFR > 60 Random Glucose 87 90 Calcium 9.4 9.0 Phosphorus 3.1 Total Bilirubin 0.9 D AST 15 ALT 31 Alkaline Phosphatase 168 H LD Total 202 C-Reactive Protein Total Protein 5.8 L D Albumin 3.1 L D Triglycerides 68 Cholesterol 150 Total LDL Cholesterol 85 HDL Cholesterol 50 03/13/16 03/13/16 07:00 07:00 WBC RBC Hgb Hct MCV MCHC RDW Plt Count MPV Neutrophils % Lymphocytes % Monocytes % Eosinophils % Basophils % ESR 5 Sodium Potassium Chloride Carbon Dioxide Anion Gap BUN Creatinine Creat Clearance w eGFR Random Glucose Calcium Phosphorus Total Bilirubin AST ALT Alkaline Phosphatase LD Total C-Reactive Protein 3.6 H D Total Protein Albumin Triglycerides Cholesterol Total LDL Cholesterol HDL Cholesterol ) Laboratory Tests 03/12/16 03/12/16 05:05 05:05 TSH 0.98 Free T4 1.41 plan: thyroid nodule us guide fna biopsy
[2016-03-13] MEDS: ATORVASTATIN CA 20 MG TABLET (FP) PO SCH (21:55)
[2016-03-13] MEDS: ACETAMINOPHEN/CAFFEINE/BUTALBITAL 1 TAB PO PRN (21:57)
[2016-03-13] MEDS ORDERED: SENNOSIDES 8.6MG TABLET (FP) PO SCH (22:00)
[2016-03-14] MEDS: morphine CARPU-JECT 2 MG/1 ML DISP.SYRIN IVPUSH PRN ×3 (01:02→08:06)
[2016-03-14] MEDS: ALBUTEROL SO4 2.5/IPRATROPIUM 0.5 INH SOL 3 ML VIAL.NEB. NEB SCH (06:35)
[2016-03-14 08:27] LABS: BASOPHIL 0.5 % (0-2.0); EOSINOPHIL 4.2 % (0-4.5); MCH 31.6 pg (25.7-33.7); MCHC 33.8 g/dl (32.0-36.0); MEAN CELL VOLUME 93.6 fl (80-96); MEAN PLT VOLUME 10.7 fl (7.5-11.1); NEUTROPHILS 53.3 % (42.8-82.8); PLATELET COUNT 170 K/MM3 (134-434); RDW 14.9 % (11.6-15.6)
[2016-03-14 09:11] LABS: ALBUMIN 3.1 g/dl (3.4-5.0); ALK PHOS 162 U/L (45-117); ANION GAP 5 (8-16); CALCIUM 9.8 mg/dL (8.5-10.1); CO2 30 mmol/L (21-32); CREATININE 0.5 mg/dL (0.55-1.02); GLUCOSE,RANDOM 88 mg/dL (74-106); SGOT/AST 16 U/L (15-37); SGPT/ALT 29 U/L (12-78); TOT PROT 5.8 g/dl (6.4-8.2)
[2016-03-14] MEDS ORDERED: PANTOPRAZOLE 40 MG TABLET (FP) PO SCH (10:00)
[2016-03-14] MEDS ORDERED: POTASSIUM CHLORIDE TABS 20 MEQ TABLET.ER (FP) PO SCH (10:00)
[2016-03-14] MEDS: LIDOCAINE 5% TOPICAL PATCH TP SCH (10:01)
[2016-03-14] MEDS: BACITRACIN 30 GM TUBE TOPICAL OINTMENT TP SCH (10:01)
[2016-03-14] MEDS: PREGABALIN 50 MG CAPSULE PO SCH (10:01)
[2016-03-14] MEDS: CLOPIDOGREL BISULFATE 75 MG TABLET (FP) PO SCH (10:02)
[2016-03-14] MEDS: CALCITONIN - SALMON SYNTHETIC 3.7 ML SPRAY.PUMP NS SCH ×2 (10:02→10:40)
--- NOTE | 2016-03-14 10:13 | DS ---
Physical Examination Vital Signs: Vital Signs Temperature 97.4 F L 03/14/16 05:25 Pulse Rate 90 03/14/16 05:25 Respiratory Rate 20 03/14/16 05:25 Blood Pressure 120/74 03/14/16 05:25 O2 Sat by Pulse Oximetry (%) 93 L 03/13/16 08:00 Findings/Remarks: AWAKE AND ALERT X 3 C/O BACK PAIN, PAIN MEDS REORDERED PATIENT HAS REFUSED EGD/COLONOSCOPY/ BONE SCAN THESE WERE ALL EXPLAINED TO HER NECESSARY TO EVALUATE HER WEIGHT LOSS WITH NEOPLASTIC WORKUP. PATIENT DOES NOT WANT THEM DONE AND IS ABLE TO MAKE HER DECISIONS. Constitutional: Yes: Mild Distress Eyes: Yes: WNL HENT: Yes: WNL Neck: Yes: WNL Cardiovascular: Yes: WNL Respiratory: Yes: Diminished, Rhonchi Gastrointestinal: Yes: WNL Musculoskeletal: Yes: Back Pain, Muscle Weakness Extremities: Yes: WNL Edema: No Peripheral Pulses WNL: Yes Integumentary: Yes: WNL Wound/Incision: Yes: Clean/Dry Neurological: Yes: WNL ...Motor Strength: WNL Psychiatric: Yes: WNL Labs: CBC, BMP 03/14/16 07:15 03/14/16 07:15 Discharge Summary Reason For Visit: AMS,FEVER,NEW ONSET SEIZURE Current Active Problems Altered mental status (Acute) Brain lesion (Acute) COPD (chronic obstructive pulmonary disease) (Acute) Cancer (Acute) Convulsions (Acute) Elevated troponin (Acute) Fall (Acute) Fever (Acute) Hypertension (Acute) Hypokalemia (Acute) Hypoxemia (Acute) New onset seizure (Acute) Polycythemia (Acute) Thyroid mass (Acute) Thyroid nodule (Acute) Unexplained weight loss (Acute) Procedures: Principal: MRI BRAIN Other Procedures: ICU WORKUP/MONITORING Hospital Course: ADMITTED NEW ONSET SEIZURES, WEIGHT LOSS, METASTATIC WORKUP. PATIENT HAS REFUSED TESTING AND WANTS TO GO HOME. PATIENT IS COMPETENT TO MAKE DECISIONS. Condition: Guarded - Instructions Diet, Activity, Other Instructions: Follow up, with , at [address] [place] [address], [address], [place], [place]. Make an appointment, call Telephone, no.: [phone] FOLLOW UP WITH HER PMD AND NEUROLOGY AND GI IN NEXT 2-3 DAYS Referrals: Jude Giang [Primary Care Provider] - Disposition: VNS/HOME HEALTH CARE - Home Medications Comprehensive Discharge Medication List: Ambulatory Orders Pregabalin [Lyrica] 200 mg PO TID 07/16/13 Acetaminophen/Caffeine/Butalb [Fioricet -] 1 tab PO TID PRN 04/26/15 Albuterol Sulfate Inhaler - [Ventolin Hfa Inhaler -] 1 inh PO BID PRN 04/27/15 Hydrocodone/Acetaminophen [Vicodin 5-300 mg Tablet] 1 each PO PRN MDD 6 Oxycodone HCl 20 mg TID PRN 03/10/16
[2016-03-14] MEDS: ACETAMINOPHEN/CAFFEINE/BUTALBITAL 1 TAB PO PRN (10:51)
[2016-03-14 10:52] VITALS: PULSE 116
[2016-03-14 11:41] VITALS: BP 105/70; TEMP 98
== END 2016-03-14 13:20 | disposition home health service (06) | DRG 100 ==
LOC: JER 16:39 → JICU 20:25 → J6S 03-12 20:37
PROVIDERS: ADMIT Family Medicine; ATTEND Family Medicine
DX: R56.9 Unspecified convulsions (principal); E43 Unspecified severe protein-calorie malnutrition; E87.2 Acidosis; J96.11 Chronic respiratory failure with hypoxia; R64 Cachexia; J98.11 Atelectasis; M48.54XA Collapsed vertebra, not elsewhere classified, thoracic region, initial encounter for fracture; Z68.1 Body mass index [BMI] 19.9 or less, adult; J44.9 Chronic obstructive pulmonary disease, unspecified; J45.909 Unspecified asthma, uncomplicated; M54.89 Other dorsalgia; E87.6 Hypokalemia; G43.809 Other migraine, not intractable, without status migrainosus; E86.0 Dehydration; E04.1 Nontoxic single thyroid nodule; R93.9 Diagnostic imaging inconclusive due to excess body fat of patient; I10 Essential (primary) hypertension; D75.1 Secondary polycythemia; F17.200 Nicotine dependence, unspecified, uncomplicated; D69.6 Thrombocytopenia, unspecified; R63.4 Abnormal weight loss
CPT/HCPCS: 36415; 36600; 70360-TC; 70450-TC; 70553-TC; 71010-TC; 71260-TC; 73502-TC-LT; 73560-TC-LT; 74177-TC; 74182-TC; 80048; 80053; 80061; 80307; 81003; 81015; 82140; 82378; 82533; 82550; 82553; 82668; 82803; 83605; 83615; 83721; 83735; 83880; 84100; 84439; 84443; 84481; 84484; 85025; 85027; 85610; 85651; 86140; 86301; 86304; 86480; 86850; 86900; 86901; 87040; 87086; 87254; 87389; 87804; 87899; 93005; 93010; 93306-TC; 94640; 94761; 95816; 99285-25; A9576

== ENCOUNTER 2016-04-14 12:45 | Emergency (ER) | payer MEDICARE, OTHER ==
[2016-04-14 13:02] VITALS: TEMP 97.7; BMI 18.6
--- NOTE | 2016-04-14 13:13 | PDOC ---
History of Present Illness - General History Source: Patient Exam Limitations: No Limitations - History of Present Illness Initial Comments: 04/14/16 13:42 The patient is a 60 year old female, with a significant past medical history of compression fracture T5, thyroid mass dx, asthma, COPD, migraines, chronic back pain(on pain medication) and possible dx of lung ca<?> per family members, who presents to the emergency department via EMS with daughter, her health proxy, complaining of swollen glands and cough for 3 days. Patient reports that she brings up a lot of phlegm that sometimes has blood pinkish in color. Patient was recently admitted for [facility] for new onset seizures and was found to have a enlarging mass within the isthmus of thyroid gland on CT. Patient had brain MRI and MRCP done during her last admission. Patient refused metastatic work up during her last admission and was discharged home 03/14/16 and asked to follow up with PMD, neuro and GI as outpatient which she did not. PCP - Dr. Giang <Nell West - Last Filed: 04/14/16 17:20> <Jason Jeff - Last Filed: 04/14/16 17:52> - General Chief Complaint: Shortness of Breath Stated Complaint: COUGHING BLOOD, SORE THROAT Time Seen by Provider: 04/14/16 13:12 Past History <Nell West - Last Filed: 04/14/16 17:20> - Past Medical History Anemia: No Asthma: Yes Cancer: No Cardiac Disorders: No CVA: No COPD: Yes CHF: No Dementia: No Diabetes: No GI Disorders: No Disorders: No HTN: No Hypercholesterolemia: No Liver Disease: No Seizures: No Thyroid Disease: No Other medical history: CHRONIC BACK PAIN - Surgical History Abdominal Surgery: No Appendectomy: No Cardiac Surgery: No Cholecystectomy: No Lung Surgery: No Neurologic Surgery: No Orthopedic Surgery: No - Psycho/Social/Smoking Cessation Hx Anxiety: Yes Suicidal Ideation: No Smoking Status: Yes Smoking History: Current some day smoker Have you smoked in the past 12 months: Yes Number of Cigarettes Smoked Daily: 4 Information on smoking cessation initiated: No 'Breaking Loose' booklet given: 04/26/15 Hx Alcohol Use: No Drug/Substance Use Hx: No Substance Use Type: None Hx Substance Use Treatment: No <Jason Jeff - Last Filed: 04/14/16 17:52> - Past Medical History Allergies/Adverse Reactions: Allergies Allergy/AdvReac Type Severity Reaction Status Date / Time aspirin Allergy Verified 04/14/16 13:02 ibuprofen AdvReac Verified 04/14/16 13:02 Home Medications: Ambulatory Orders Levofloxacin [Levaquin] 750 mg PO DAILY #10 tab 04/14/16 Review of Systems - Review of Systems Able to Perform ROS?: Yes Comments:: 04/14/16 13:43 GENERAL/CONSTITUTIONAL: No fever or chills. No weakness. HEAD, EYES, EARS, NOSE AND THROAT: +sore throat. No change in vision. No ear pain or discharge. CARDIOVASCULAR: No chest pain or shortness of breath. RESPIRATORY: +cough No wheezing, or hemoptysis. GASTROINTESTINAL: No nausea, vomiting, diarrhea or constipation. GENITOURINARY: No dysuria, frequency, or change in urination. MUSCULOSKELETAL: No joint or muscle swelling or pain. No neck. SKIN: No rash NEUROLOGIC: No headache, vertigo, loss of consciousness, or change in strength/ sensation. ENDOCRINE: No increased thirst. No abnormal weight change. HEMATOLOGIC/LYMPHATIC: No anemia, easy bleeding, or history of blood clots. ALLERGIC/IMMUNOLOGIC: No hives or skin allergy. <Nell West - Last Filed: 04/14/16 17:20> *Physical Exam - Vital Signs Last Vital Signs Temp Pulse Resp BP Pulse Ox 97.7 F 112 H 16 103/70 84 L 04/14/16 12:58 04/14/16 12:58 04/14/16 12:58 04/14/16 12:58 04/14/16 12:58 - Physical Exam Comments: 04/14/16 13:43 GENERAL: Awake, alert, and fully oriented, in no acute distress HEAD: No signs of trauma EYES: PERRLA, EOMI, sclera anicteric, conjunctiva clear ENT: Auricles normal inspection, hearing grossly normal, nares patent, oropharynx clear without exudates. Moist mucosa NECK: Normal ROM, supple, no lymphadenopathy, JVD, or masses LUNGS: +anterior and posterior wheezes. Breath sounds equal. No crackles HEART: Regular rate and rhythm, normal S1 and S2, no murmurs, rubs or gallops ABDOMEN: Soft, nontender, normoactive bowel sounds. No guarding, no rebound. No masses EXTREMITIES: Normal range of motion, no edema. No clubbing or cyanosis. No cords, erythema, or tenderness NEUROLOGICAL: Cranial nerves II through XII grossly intact. Normal speech. SKIN: Warm, Dry, normal turgor, no rashes or lesions noted. <Nell West - Last Filed: 04/14/16 17:20> - Vital Signs Last Vital Signs Temp Pulse Resp BP Pulse Ox 97.7 F 112 H 16 103/70 84 L 04/14/16 12:58 04/14/16 12:58 04/14/16 12:58 04/14/16 12:58 04/14/16 12:58 <Jason Jeff - Last Filed: 04/14/16 17:52> ED Treatment Course - LABORATORY CBC & Chemistry Diagram: 04/14/16 14:20 04/14/16 14:20 - RADIOLOGY Radiology Studies Ordered: 04/14/16 17:20 EXAM#: TYPE/EXAM: RESULT: CT/CHEST CT WITH CONTRAST CT/SOFT TISSUE NECK CT WITH CONTR Rule out malignancy. Difficulty breathing. CT scan of the neck and chest following intravenous contrast. Contiguous axial scans were obtained followed by coronal and sagittal reconstruction images. 88 cc of Omnipaque 350 was intravenously injected Compared to prior CT scan of the chest dated 03/10/2016 The airway is patent and symmetric without narrowing. Parapharyngeal space is clear. Both submandibular and both parotid glands appear unremarkable. There are a few subcentimeter and almost borderline bilateral lateral neck lymph nodes which are nonspecific. Previously described enhancing mass lesion in the thyroid isthmus with retrosternal extension is again seen measuring 3.4 x 2.8 x 4.5 cm in transverse, AP and craniocaudal dimension is again seen without compromise of the airway. Included intracranial contents appear unremarkable. Moderate deviation of the nasal septum to the right. In the chest, no enlarged mediastinal lymph nodes are identified. There is an approximately 1.5 x 0.7 cm right hilar lymph node. No enlarged left hilar lymph nodes are identified. The heart is within normal limits in size. In included portion of the upper abdomen no gross organomegaly or acute process is identified. No gross enlarged lymph nodes are identified. Lung windows again demonstrates moderate centrilobular emphysema mainly in the upper lobes with interval mild atelectatic changes in the right middle lobe, medially as well as focal consolidation/ airspace disease in lingular segment of the left upper lobe. Interval clearing of previously visualized left lower lobe consolidation and small left pleural effusion Impression: Persistent heterogeneously enhancing the thyroid mass that appears to be origin 18th from the right thyroid lobe/isthmus with retrosternal extension measuring 3.4 x 2.8 x 4.5 cm for which tissue characterization is recommended. There is no compromise of the airway. Correlate clinically for further evaluation. No enlarged lymph nodes in the neck. Borderline enlarged right hilar lymph node measuring 1.5 x 0.7 cm. Interval atelectatic changes in the right middle lobe, medially and focal area of consolidation in lingular segment of the left upper lobe. Interval clearing of previously visualized left lower lobe consolidation and small left pleural effusion. Case discussed with Dr. Jeff, emergency room caring attending physician. <Nell West - Last Filed: 04/14/16 17:20> - LABORATORY CBC & Chemistry Diagram: 04/14/16 14:20 04/14/16 14:20 <Jason Jeff - Last Filed: 04/14/16 17:52> Medical Decision Making - Medical Decision Making 04/14/16 13:44 60 year old female, with a significant past medical history of compression fracture T5, asthma, COPD, migraines, chronic back pain(on pain medication) and possible dx of lung ca<?> per family members, who presents to the emergency department via EMS with daughter, her health proxy, complaining of swollen glands and cough for 3 days. Patient is "very secretive and a lies" about her medical history according to her daughter, who is her health proxy. Will order labs, CT and medication for the patient. Will reassess the patient when the results are back. During her last admission patient was found to have a enlarging thyroid mass for which she refused metastatic work up and wanted to be discharged home. She was told to follow up with her PMD, neuro and GI as outpatient which she did not. She notes that she only followed up with her pain management doctor as outpatient for her chronic back pain. <Nell West - Last Filed: 04/14/16 17:20> *DC/Admit/Observation/Transfer - Attestations Scribe Attestion: 04/14/16 13:48 Documentation prepared by FILEMON Hansen, acting as medical staff physician for Jason Jeff MD/. <Nell West - Last Filed: 04/14/16 17:20> - Discharge Dispostion Admit: No - Attestations Physician Attestion: 04/14/16 13:13 I, Dr. Jason Jeff, attest that this document has been prepared under my direction and personally reviewed by me in its entirety. I further attest, that it accurately reflects all work, treatment, procedures and medical decision -making performed by me. <Jason Jeff - Last Filed: 04/14/16 17:52> Diagnosis at time of Disposition: Acute bronchitis Qualifiers: Bronchitis organism: unspecified organism Qualified Code(s): J20.9 - Acute bronchitis, unspecified Emphysema of lung Qualifiers: Emphysema type: panlobular Qualified Code(s): J43.1 - Panlobular emphysema - Discharge Dispostion Disposition: HOME - Prescriptions Prescriptions: Levofloxacin [Levaquin] 750 mg PO DAILY #10 tab - Referrals Referrals: Jude Giang [Primary Care Provider] - Charles Polk MD [Staff Physician] - - Patient Instructions Printed Discharge Instructions: DI for Emphysema, DI for Acute Bronchitis Additional Instructions: Jonna - You definitely have a mass of your thyroid, and it may be cancerous or malignant. Please make an appointment with an Ear Nose and Throat Physician to be able to schedule a biopsy. Return to us if worse or new symptoms occur. In the meanwhile I am putting you on antibiotics for bronchitis. Continue all your other medicines as before. Best-\\ Dr. Jason Jeff
[2016-04-14] MEDS ORDERED: methylPREDNISolone NA SUCC 125 MG/2 ML VIAL IVPB ONE (13:40)
[2016-04-14] MEDS ORDERED: ALBUTEROL SO4 2.5/IPRATROPIUM 0.5 INH SOL 3 ML VIAL.NEB. NEB ONE ×2 (13:40→14:24)
[2016-04-14] MEDS ORDERED: methylPREDNISolone NA SUCC 125 MG/2 ML VIAL ONE (14:24)
[2016-04-14 14:29] LABS: MCH 31.4 pg (25.7-33.7); MCHC 33.6 g/dl (32.0-36.0); MEAN CELL VOLUME 93.7 fl (80-96); MEAN PLT VOLUME 10.7 fl (7.5-11.1); PLATELET COUNT 114 K/MM3 (134-434); RDW 15.1 % (11.6-15.6); WHITE BLOOD COUNT 10.7 K/mm3 (4.0-10.0)
[2016-04-14 14:40] LABS: INR 1.06 (0.82-1.09); PROTHROMBIN TIME (PATIENT) 11.7 SEC (9.98-11.88)
[2016-04-14 14:54] LABS: ALBUMIN 3.5 g/dl (3.4-5.0); ALK PHOS 192 U/L (45-117); ANION GAP 10 (8-16); BILIRUBIN,TOTAL 0.5 mg/dL (0.2-1.0); CALCIUM 9.9 mg/dL (8.5-10.1); CO2 31 mmol/L (21-32); CREATININE 0.4 mg/dL (0.55-1.02); GLUCOSE,RANDOM 101 mg/dL (74-106); SGOT/AST 28 U/L (15-37); SGPT/ALT 28 U/L (12-78); TOT PROT 6.8 g/dl (6.4-8.2)
[2016-04-14 17:53] VITALS: BP 110/68; PULSE 91
[2016-04-14 18:29] LABS: PLATELET ESTIMATE ADEQUATE (NORMAL)
== END 2016-04-14 17:52 | disposition home or self-care (01) ==
LOC: JER 12:45
PROC: 3E0F7GC Introduction of Other Therapeutic Substance into Respiratory Tract, Via Natural or Artificial Opening (ICD-10-PCS; principal; 2016-04-14)
PROC: 3E0333Z Introduction of Anti-inflammatory into Peripheral Vein, Percutaneous Approach (ICD-10-PCS; 2016-04-14)
DX: J20.9 Acute bronchitis, unspecified (principal); J43.1 Panlobular emphysema; J45.909 Unspecified asthma, uncomplicated; G40.909 Epilepsy, unspecified, not intractable, without status epilepticus; E07.89 Other specified disorders of thyroid
CPT/HCPCS: 36415; 70491-TC; 71260-TC; 80053; 83690; 85025; 85610; 94640; 96374; 99283-25

== ENCOUNTER 2016-06-14 00:58 | Emergency (ER) | payer MEDICARE, OTHER ==
[2016-06-14 01:26] VITALS: TEMP 99.4; BMI 16.5
--- NOTE | 2016-06-14 01:36 | PDOC ---
History of Present Illness - History of Present Illness Initial Comments: 06/14/16 03:38 The patient is a 61-year-old female BIB EMS and daughter with a significant past medical history of lung neoplasm (possible lung ca), thyroid mass dx, migraines, seizures, thyroid mass, COPD, asthma, compression fracture T5, chronic back pain (on pain medication), and presents to the emergency department with altered mental status tonight. As per EMS, the patient came in tachycardic, hypertensive, O2 sat 88% on room air, and agitated. As per daughter , the patient has had diarrhea for 4 days going from the bed to the bathroom. The daughter states that the patient has been experiencing weakness and needs assistance walking to the bathroom for the last 2 days. The daughter states that the patient is not eating and disoriented. The patient reports she has back pain. The patient lives with her son. The rest of the history is limited due to the patients altered mental status and agitation. The patient denies chest pain, shortness of breath, headache and dizziness. The patient denies fever, chills, nausea, vomit, and constipation. The patient denies dysuria, frequency, urgency and hematuria. Allergies: aspirin, ibuprofen Past Surgical History: None reported Social History: current everyday smoker PCP: Dr. Giang <Karyna Medrano - Last Filed: 06/14/16 03:38> <Astrid Jesus - Last Filed: 06/16/16 02:14> - General Chief Complaint: SIRS, Suspected/Possible Stated Complaint: AMS Time Seen by Provider: 06/14/16 01:05 Past History <Karyna Medrano - Last Filed: 06/14/16 03:38> - Past Medical History Anemia: No Asthma: Yes Cancer: No Cardiac Disorders: No CVA: No COPD: Yes CHF: No Dementia: No Diabetes: No GI Disorders: No Disorders: No HTN: No Hypercholesterolemia: No Liver Disease: No Seizures: No Thyroid Disease: No - Surgical History Abdominal Surgery: No Appendectomy: No Cardiac Surgery: No Cholecystectomy: No Lung Surgery: No Neurologic Surgery: No Orthopedic Surgery: No - Psycho/Social/Smoking Cessation Hx Anxiety: Yes Suicidal Ideation: (unable to assess) Smoking Status: Yes Smoking History: Current every day smoker Have you smoked in the past 12 months: Yes Number of Cigarettes Smoked Daily: 4 Information on smoking cessation initiated: Yes 'Breaking Loose' booklet given: 04/26/15 Hx Alcohol Use: No Drug/Substance Use Hx: No Substance Use Type: None Hx Substance Use Treatment: No <Astrid Jesus - Last Filed: 06/16/16 02:14> - Past Medical History Allergies/Adverse Reactions: Allergies Allergy/AdvReac Type Severity Reaction Status Date / Time aspirin Allergy Verified 04/14/16 13:02 ibuprofen AdvReac Verified 04/14/16 13:02 Home Medications: Ambulatory Orders Albuterol Sulfate Inhaler - [Ventolin Hfa Inhaler -] 1 - 2 inh PO Q4H PRN Atorvastatin Calcium 20 mg PO HS 06/14/16 Butalb/Acetaminophen/Caffeine [Dvwgjm-Cfafuwzb-Xfje 50-300-40] 1 each PO TID PRN 06/14/16 Clopidogrel Bisulfate [Plavix -] 75 mg PO DAILY 06/14/16 Oxycodone HCl [Oxycodone HCl ER] 20 mg PO TID 06/14/16 Pantoprazole Sodium [Protonix] 40 mg PO DAILY 06/14/16 Prednisone [Deltasone -] 40 mg PO DAILY #8 tablet 06/14/16 Pregabalin [Lyrica -] 150 mg PO TID 06/14/16 Review of Systems - Review of Systems Comments:: 06/14/16 03:39 CONSTITUTIONAL: Present: (+) generalized weakness, (+) agitation Absent: fever, chills, diaphoresis, malaise, loss of appetite HEENT: Absent: rhinorrhea, nasal congestion, throat pain, throat swelling, difficulty swallowing, mouth swelling, ear pain, eye pain, visual changes CARDIOVASCULAR: Absent: chest pain, syncope, palpitations, irregular heart rate, lightheadedness , peripheral edema RESPIRATORY: Absent: cough, shortness of breath, dyspnea with exertion, orthopnea, wheezing, stridor, hemoptysis GASTROINTESTINAL: Present: (+) diarrhea Absent: abdominal pain, abdominal distension, nausea, vomiting, constipation, melena, hematochezia GENITOURINARY: Absent: dysuria, frequency, urgency, hesitancy, hematuria, flank pain, genital pain MUSCULOSKELETAL: Present: (+) back pain Absent: myalgia, arthralgia, joint swelling SKIN: Absent: rash, itching, pallor HEMATOLOGIC/IMMUNOLOGIC: Absent: easy bleeding, easy bruising, lymphadenopathy, frequent infections ENDOCRINE: Absent: unexplained weight gain, unexplained weight loss, heat intolerance, cold intolerance NEUROLOGIC: Absent: headache, focal weakness or paresthesias, dizziness, unsteady gait, seizure, mental status changes, bladder or bowel incontinence PSYCHIATRIC: Absent: anxiety, depression, suicidal or homicidal ideation, hallucinations. <Medrano,Karyna - Last Filed: 06/14/16 03:38> *Physical Exam - Vital Signs Last Vital Signs Temp Pulse Resp BP Pulse Ox 99.4 F 125 H 30 H 132/79 92 L 06/14/16 01:21 06/14/16 01:27 06/14/16 01:21 06/14/16 01:21 06/14/16 01:27 - Physical Exam Comments: 06/14/16 03:39 GENERAL: (+) Cachetic. (+) Afebrile. (+) Patient is agitated. Awake and alert. No acute distress. HEENT: Normocephalic, atraumatic. PERRLA, EOMI. No conjunctival pallor. Sclera are non- icteric. Moist mucous membranes. Oropharynx is clear. NECK: Supple. Full ROM. No JVD. Carotid pulses 2+ and symmetric, without bruits. No thyromegaly. No lymphadenopathy. CARDIOVASCULAR: Regular rate and rhythm. No murmurs, rubs, or gallops. Distal pulses are 2+ and symmetric. PULMONARY: No evidence of respiratory distress. Lungs clear to auscultation bilaterally. No wheezing, rales or rhonchi. ABDOMINAL: Soft. Non-tender. Non-distended. No rebound or guarding. No organomegaly. Normoactive bowel sounds. MUSCULOSKELETAL Normal range of motion at all joints. No bony deformities or tenderness. No CVA tenderness. EXTREMITIES: No cyanosis. No clubbing. No edema. No calf tenderness. SKIN: Warm and dry. Normal capillary refill. No rashes. No jaundice. NEUROLOGICAL: Alert, awake, appropriate. Cranial nerves 2-12 intact. No deficits to light touch and temperature in face, upper extremities and lower extremities. No motor deficits in the in face, upper extremities and lower extremities. Normoreflexic in the upper and lower extremities. Normal speech. Toes are down- going bilaterally. PSYCHIATRIC: Good eye contact. <Medrano,Karyna - Last Filed: 06/14/16 03:38> - Vital Signs Last Vital Signs Temp Pulse Resp BP Pulse Ox 99.4 F 125 H 30 H 132/79 92 L 06/14/16 01:21 06/14/16 01:27 06/14/16 01:21 06/14/16 01:21 06/14/16 01:27 <Astrid Jesus - Last Filed: 06/16/16 02:14> ED Treatment Course - LABORATORY CBC & Chemistry Diagram: 06/14/16 08:32 06/14/16 08:32 <Astrid Jesus - Last Filed: 06/16/16 02:14> Medical Decision Making - Medical Decision Making 06/14/16 05:15 Pt is refusing all treatment. She is tachycardic. But she is fighting staff and her daughter. She is completely alert and awake and states that she doesn;t want treatment and that she wants to go home and there. Pt's daughter and son do not want her to go home and they will not take her. Older daughter is willing to let patient make her own decisions. Patient was given ensure to drink as she is refusing IV and IV hydration and blood draws. She will see the director social service in the AM and we will involve her PMD Dr. Giang. 06/14/16 07:04 Pt will be signed out to the day ER doctor <Astrid Jesus - Last Filed: 06/16/16 02:14> *DC/Admit/Observation/Transfer - Attestations Scribe Attestion: 06/14/16 03:40 Documentation prepared by Karyna Medrano, acting as biomedical manager for Astrid Jesus MD. <Karyna Medrano - Last Filed: 06/14/16 03:38> <Astrid Jesus - Last Filed: 06/16/16 02:14> Diagnosis at time of Disposition: COPD (chronic obstructive pulmonary disease), Hypokalemia - Discharge Dispostion Disposition: HOME Condition at time of disposition: Improved - Prescriptions Prescriptions: Prednisone [Deltasone -] 40 mg PO DAILY #8 tablet - Referrals Referrals: Jude Giang [Non Staff, Medical] - - Patient Instructions Printed Discharge Instructions: DI for Chronic Obstructive Pulmonary Disease Additional Instructions: Return to the emergency department immediately with ANY new, persistent or worsening symptoms. make shauna eyou are staying well hydrated continue using your nebulizer as needed for your sob. You MUST call and follow up with dr. giang on thursday for further evaluation of your symptoms. Results were discussed with you. Please make sure your doctor reviews the results of your emergency evaluation. Print Language: SERBIAN
--- NOTE | 2016-06-14 07:23 | PDOC ---
*Physical Exam - Vital Signs Last Vital Signs Temp Pulse Resp BP Pulse Ox 99.4 F 118 H 24 132/79 91 L 06/14/16 01:21 06/14/16 07:16 06/14/16 07:16 06/14/16 01:21 06/14/16 07:16 ED Treatment Course - LABORATORY CBC & Chemistry Diagram: 06/14/16 08:32 06/14/16 08:32 Medical Decision Making - Medical Decision Making 06/14/16 07:22 The pt was signed out to me from Dr. Jesus. The patient has history of thyroid mass (refused biopsy and workup), migraines, seizures, thyroid mass, COPD, asthma, compression fracture T5, chronic back pain (on pain medication), and presents to the emergency department with altered mental status tonight. Per family the patient was confused, tachypneic prior to arrival, after arrival, the pt was more alert, but noted to be dehydrated and tachycardic, O2 i,mproved with supplemental oxygen. Pt has been tolerating oral intake here. Pt refusing all medical care here per Dr. Jesus. Upon arrival, I went to evaluate the patient, however the pt is ignoring me saying she just 'wants to be left alone' and otherwise not responding to my questions. The pt has a history of refusing further advanced workup of metastatic disease during prior hospitalizations and was ultimately discharged. This view of refusing care does seem consistent with prior wishes of the patient. However as the patient is refusing to talk to me. 06/14/16 07:45 case dw Swetha ( ) - daugther and HCP/power of employment attorney - 06/14/16 07:54 case was discussed with disease case manager rn holly - will involve her with discussions with HCP/power of employment attorney. 06/14/16 09:19 The pt began talking to me, she is alert oriented and coherent - and said she wants to be left alone, and really doesnt want to pursue aggressive medical care. I offered the patient hospice care nad the pt seemd very interested and said that is 'exactly what she wants'. The pt agreed to fluid and hydration and basic blood work and zofran and pain management for her chronic back pain. pt did have some scattered wheezing in her lungs - will give her a neb. The case was also discussed with Holly, who submitted paperwork to home hospice and pt was given resources to have that set up. I will also notifiy the PMD of the situation. The patients daughters are bedside and agree with the plan. 06/14/16 11:05 pt is feeling improved after getting a neb will give pt some steroids as well for suspect copd exacerbation. HR also improving with hydration and pt getting K+ for her hyperkalemia the pt does not want any further treatment and states she feels better. she is resting comfortably in her stretcher with her son bedside. 06/14/16 13:19 pt feeling improved hR improved will dc the pt back home with PMD fu on thursday return percautions were discussed I discussed the physical exam findings, ancillary test results and final diagnoses with the patient. I answered all of the patient's questions. The patient was satisfied with the care received and felt comfortable with the discharge plan and treatment plan. The patient will call their primary care physician within 24 hours to arrange follow-up and will return to the Emergency Department with any new, persistent or worsening symptoms. *DC/Admit/Observation/Transfer Diagnosis at time of Disposition: Hypokalemia COPD (chronic obstructive pulmonary disease) Qualifiers: COPD type: COPD with acute exacerbation Qualified Code(s): J44.1 - Chronic obstructive pulmonary disease with (acute) exacerbation - Discharge Dispostion Disposition: HOME Condition at time of disposition: Improved Admit: No - Prescriptions Prescriptions: Prednisone [Deltasone -] 40 mg PO DAILY #8 tablet - Referrals Referrals: Jude Giang [Non Staff, Medical] - - Patient Instructions Printed Discharge Instructions: DI for Chronic Obstructive Pulmonary Disease Additional Instructions: Return to the emergency department immediately with ANY new, persistent or worsening symptoms. make shauna eyou are staying well hydrated continue using your nebulizer as needed for your sob. You MUST call and follow up with dr. giang on thursday for further evaluation of your symptoms. Results were discussed with you. Please make sure your doctor reviews the results of your emergency evaluation. Print Language: MACEDONIAN
[2016-06-14] MEDS ORDERED: morphine CARPU-JECT 2 MG/1 ML DISP.SYRIN IVPUSH ONE (08:25)
[2016-06-14] MEDS ORDERED: ONDANSETRON 4 MG/2 ML VIAL IVPB ONE (08:25)
[2016-06-14] MEDS ORDERED: SODIUM CHLORIDE 1,000 ML IV ONE (08:25)
[2016-06-14] MEDS ORDERED: morphine CARPU-JECT 2 MG/1 ML DISP.SYRIN ONE (08:33)
[2016-06-14] MEDS ORDERED: ONDANSETRON 4 MG/2 ML VIAL ONE (08:34)
[2016-06-14 08:36] LABS: BASOPHIL 0.2 % (0-2.0); MCHC 33.5 g/dl (32.0-36.0); MEAN CELL VOLUME 92.5 fl (80-96); MEAN PLT VOLUME 11.2 fl (7.5-11.1); NEUTROPHILS 82.9 % (42.8-82.8); PLATELET COUNT 114 K/MM3 (134-434); RDW 14.3 % (11.6-15.6); WHITE BLOOD COUNT 10.7 K/mm3 (4.0-10.0)
[2016-06-14 09:05] LABS: ALBUMIN 3.8 g/dl (3.4-5.0); ALK PHOS 170 U/L (45-117); ANION GAP 8 (8-16); BILIRUBIN,TOTAL 0.6 mg/dL (0.2-1.0); CALCIUM 9.7 mg/dL (8.5-10.1); CO2 29 mmol/L (21-32); CREATININE 0.5 mg/dL (0.55-1.02); GLUCOSE,RANDOM 119 mg/dL (74-106); SGPT/ALT 24 U/L (12-78); TOT PROT 6.8 g/dl (6.4-8.2)
[2016-06-14 09:14] LABS: SGOT/AST 23 U/L (15-37)
[2016-06-14] MEDS ORDERED: SODIUM CHLORIDE 0.9%/KCL 1,000 ML IV SCH (09:30)
[2016-06-14] MEDS ORDERED: KCL 10 MEQ IVPB 100 ML IVPB SCH (09:30)
[2016-06-14] MEDS ORDERED: ALBUTEROL SO4 2.5/IPRATROPIUM 0.5 INH SOL 3 ML VIAL.NEB. NEB ONE ×2 (09:40→09:50)
[2016-06-14] MEDS ORDERED: methylPREDNISolone NA SUCC 125 MG/2 ML VIAL IVPB ONE (11:05)
[2016-06-14] MEDS ORDERED: methylPREDNISolone NA SUCC 125 MG/2 ML VIAL ONE (11:26)
[2016-06-14 13:57] VITALS: BP 129/65; PULSE 78
== END 2016-06-14 13:58 | disposition home or self-care (01) ==
LOC: JER 00:58
PROC: 3E0F7GC Introduction of Other Therapeutic Substance into Respiratory Tract, Via Natural or Artificial Opening (ICD-10-PCS; principal; 2016-06-14)
PROC: 3E033GC Introduction of Other Therapeutic Substance into Peripheral Vein, Percutaneous Approach (ICD-10-PCS; 2016-06-14)
PROC: 3E033NZ Introduction of Analgesics, Hypnotics, Sedatives into Peripheral Vein, Percutaneous Approach (ICD-10-PCS; 2016-06-14)
PROC: 3E033GC Introduction of Other Therapeutic Substance into Peripheral Vein, Percutaneous Approach (ICD-10-PCS; 2016-06-14)
PROC: 3E0333Z Introduction of Anti-inflammatory into Peripheral Vein, Percutaneous Approach (ICD-10-PCS; 2016-06-14)
DX: J44.1 Chronic obstructive pulmonary disease with (acute) exacerbation (principal); E87.6 Hypokalemia; E86.0 Dehydration; G40.909 Epilepsy, unspecified, not intractable, without status epilepticus; G43.909 Migraine, unspecified, not intractable, without status migrainosus; E04.8 Other specified nontoxic goiter; M54.5 Low back pain; G89.29 Other chronic pain; J45.909 Unspecified asthma, uncomplicated
CPT/HCPCS: 36415; 71010-TC; 80053; 83735; 85025; 94640; 96365; 96375; 99284-25

== ENCOUNTER 2016-07-19 14:33 | Inpatient (IN) | payer MEDICARE, OTHER ==
[2016-07-19] MEDS ORDERED: ONDANSETRON 4 MG/2 ML VIAL IVPUSH ONE (15:01)
[2016-07-19] MEDS ORDERED: SODIUM CHLORIDE 1,000 ML IV STA (15:01)
[2016-07-19] MEDS ORDERED: morphine CARPU-JECT 2 MG/1 ML DISP.SYRIN IVPUSH ONE (15:01)
--- NOTE | 2016-07-19 15:03 | PDOC ---
History of Present Illness - General History Source: Old Records Exam Limitations: Unresponsive - History of Present Illness Initial Comments: 07/19/16 15:22 The patient is a 61-year-old female BIB EMS and daughter with a significant past medical history of lung neoplasm (possible lung ca), thyroid mass dx, migraines, seizures, thyroid mass, COPD, asthma, compression fracture T5, chronic back pain (on pain medication), and presents to the emergency department with altered mental status today. As per daughter, the pt has been in a delusional state and has not been communicating with anyone at home. The daughter states that the pt has not been using O2 at home or taking her meds for the past 4 days and has been experiencing multiple episodes of diarrhea for the past 5 days. HPI is limited due to patients altered mental status. <Denise Clay - Last Filed: 07/19/16 16:32> <Denia Marie - Last Filed: 07/20/16 10:24> - General Chief Complaint: Diarrhea Stated Complaint: RESP DISTRESS Time Seen by Provider: 07/19/16 14:54 Past History <Denise Clay - Last Filed: 07/19/16 16:32> - Past Medical History Anemia: No Asthma: Yes Cancer: No Cardiac Disorders: No CVA: No COPD: Yes CHF: No Dementia: No Diabetes: No GI Disorders: No Disorders: No HTN: No Hypercholesterolemia: No Liver Disease: No Seizures: No Thyroid Disease: No - Surgical History Abdominal Surgery: No Appendectomy: No Cardiac Surgery: No Cholecystectomy: No Lung Surgery: No Neurologic Surgery: No Orthopedic Surgery: No - Psycho/Social/Smoking Cessation Hx Anxiety: Yes Suicidal Ideation: No (unable to assess) Smoking Status: Yes Smoking History: Current every day smoker Have you smoked in the past 12 months: Yes Number of Cigarettes Smoked Daily: 10 Information on smoking cessation initiated: Yes 'Breaking Loose' booklet given: 07/19/16 Hx Alcohol Use: No Drug/Substance Use Hx: No Substance Use Type: None Hx Substance Use Treatment: No <Denia Marie - Last Filed: 07/20/16 10:24> - Past Medical History Allergies/Adverse Reactions: Allergies Allergy/AdvReac Type Severity Reaction Status Date / Time aspirin Allergy Verified 07/19/16 14:55 ibuprofen AdvReac Verified 07/19/16 14:55 Home Medications: Ambulatory Orders Albuterol Sulfate Inhaler - [Ventolin Hfa Inhaler -] 1 - 2 inh PO Q4H PRN Atorvastatin Calcium 20 mg PO HS 06/14/16 Butalb/Acetaminophen/Caffeine [Jnkiyb-Fzffhqwf-Yjjq 50-300-40] 1 each PO TID PRN 06/14/16 Clopidogrel Bisulfate [Plavix -] 75 mg PO DAILY 06/14/16 Oxycodone HCl [Oxycodone HCl ER] 20 mg PO TID 06/14/16 Pantoprazole Sodium [Protonix] 40 mg PO DAILY 06/14/16 Prednisone [Deltasone -] 40 mg PO DAILY #8 tablet 06/14/16 Pregabalin [Lyrica -] 150 mg PO TID 06/14/16 Review of Systems - Review of Systems Able to Perform ROS?: No Comments:: 07/19/16 15:23 HPI is limited due to patient's altered mental status. <Denise Clay - Last Filed: 07/19/16 16:32> *Physical Exam - Vital Signs Last Vital Signs Temp Pulse Resp BP Pulse Ox 99.6 F 80 20 130/76 84 L 07/19/16 14:50 07/19/16 14:50 07/19/16 14:50 07/19/16 14:50 07/19/16 14:50 <Denise Clay - Last Filed: 07/19/16 16:32> - Vital Signs Last Vital Signs Temp Pulse Resp BP Pulse Ox 99.6 F 80 20 130/76 84 L 07/19/16 14:50 07/19/16 14:50 07/19/16 14:50 07/19/16 14:50 07/19/16 14:50 - Physical Exam Comments: GENERAL: Somnolent but awakens to voice. Cachectic. Appears chronically ill. HEAD: No signs of trauma EYES: PERRLA, EOMI, sclera anicteric, conjunctiva clear ENT: Auricles normal inspection, hearing grossly normal, nares patent, oropharynx clear without exudates. Dry mucosa NECK: Normal ROM, supple, no lymphadenopathy, JVD, or masses LUNGS: Breath sounds equal, clear to auscultation bilaterally. No wheezes, and no crackles HEART: Regular rate and rhythm, normal S1 and S2, no murmurs, rubs or gallops ABDOMEN: Soft, nontender, normoactive bowel sounds. No guarding, no rebound. No masses EXTREMITIES: Normal range of motion, no edema. No clubbing or cyanosis. No cords, erythema, or tenderness NEUROLOGICAL: Limited by AMS. SKIN: Warm, Dry, normal turgor, no rashes or lesions noted. <Denia Marie - Last Filed: 07/20/16 10:24> ED Treatment Course - LABORATORY CBC & Chemistry Diagram: 07/19/16 15:09 07/19/16 15:09 - RADIOLOGY Radiology Studies Ordered: 07/19/16 15:40 Chest X-Ray was reviewed by Dr. Marie and over-read by Radiology. Impression: No acute change since 06/14/2016. No slight increase in lung markings. - Medications Given in the ED: ED Medications Discontinued Medications Generic Name Dose Route Start Last Admin Trade Name Freq PRN Reason Stop Dose Admin Morphine Sulfate 2 mg 07/19/16 15:01 07/19/16 15:16 Morphine Injection - IVPUSH 07/19/16 15:02 2 mg ONCE ONE Administration Ondansetron HCl 4 mg 07/19/16 15:01 07/19/16 15:16 Zofran Injection IVPUSH 07/19/16 15:02 4 mg ONCE ONE Administration <Denise Clay - Last Filed: 07/19/16 16:32> - LABORATORY CBC & Chemistry Diagram: 07/20/16 05:40 07/20/16 05:40 <Denia Marie - Last Filed: 07/20/16 10:24> Medical Decision Making - Medical Decision Making 07/19/16 16:32 Dr. Salgado was paged and notified via phone service. <Denise Clay - Last Filed: 07/19/16 16:32> - Medical Decision Making Multiple discussions with family at bedside. Daughter has power of trade mark attorney, present at bedside. Patient does not have a DNR, but has previously stated many times that she does not want any invasive procedures or resuscitation. She was initially combative on ED arrival, noted to be hypoxic to 84. When her O2 was restarted (she is supposed to use at home but refuses and pulls it off), her mental status improved. As per family, typically she refuses IV placement and any interventions, but today she did not, implying that she is feeling worse than her usual. Will attempt to comply with her wishes according to prior chart review. Therefore, I will check for any reversible causes of AMS- labs, UA, CXR. Will hydrate her with IV fluids. Will treat for COPD exacerbation, as her lung sounds were significantly decreased on arrival. She may not tolerate treatments- she has refused mask in the past. She is tolerating nasal cannula. I discussed this with the family. As she improves, she may refuse any further treatment. D/w Dr. Salgado. Will admit. <Denia Marie - Last Filed: 07/20/16 10:24> *DC/Admit/Observation/Transfer - Attestations Scribe Attestion: 07/19/16 15:24 Documentation prepared by Denise Clay, acting as medical insurance coding specialist for Denia Marie MD. <Denise Clay - Last Filed: 07/19/16 16:32> - Discharge Dispostion Admit: Yes <Denia Marie - Last Filed: 07/20/16 10:24> Diagnosis at time of Disposition: Polycythemia, Hypoxemia COPD (chronic obstructive pulmonary disease) Qualifiers: COPD type: COPD with acute exacerbation Qualified Code(s): J44.1 - Chronic obstructive pulmonary disease with (acute) exacerbation - Discharge Dispostion Condition at time of disposition: Guarded - Referrals
[2016-07-19] MEDS ORDERED: morphine CARPU-JECT 2 MG/1 ML DISP.SYRIN ONE (15:17)
[2016-07-19] MEDS ORDERED: ONDANSETRON 4 MG/2 ML VIAL ONE (15:17)
[2016-07-19 15:37] LABS: BASOPHIL 0.1 % (0-2.0); MCHC 33.1 g/dl (32.0-36.0); MEAN CELL VOLUME 90.6 fl (80-96); RDW 16.4 % (11.6-15.6); WHITE BLOOD COUNT 8.2 K/mm3 (4.0-10.0)
[2016-07-19] MEDS ORDERED: LORAZEPAM CARPU-JECT 2 MG/ML DISP.SYRIN IVPUSH ONE (16:00)
[2016-07-19] MEDS ORDERED: LORAZEPAM CARPU-JECT 2 MG/ML DISP.SYRIN ONE (16:14)
[2016-07-19 16:17] LABS: ALBUMIN 3.6 g/dl (3.4-5.0); ANION GAP 14 (8-16); BILIRUBIN,TOTAL 0.5 mg/dL (0.2-1.0); CALCIUM 9.6 mg/dL (8.5-10.1); CO2 29 mmol/L (21-32); COCKROFT - GAULT 71.655; CREATININE 0.6 mg/dL (0.55-1.02); GLUCOSE,RANDOM 107 mg/dL (74-106); SGOT/AST 18 U/L (15-37); SGPT/ALT 19 U/L (12-78); TOT PROT 6.9 g/dl (6.4-8.2)
[2016-07-19 16:18] LABS: ALK PHOS 172 U/L (45-117)
[2016-07-19] MEDS ORDERED: methylPREDNISolone NA SUCC 125 MG/2 ML VIAL IVPB ONE (16:26)
[2016-07-19] MEDS: ALBUTEROL SO4 2.5/IPRATROPIUM 0.5 INH SOL 3 ML VIAL.NEB. NEB SCH ×4 (16:38→18:58)
[2016-07-19 17:40] LABS: PLATELET COUNT 122 K/MM3 (134-434)
[2016-07-19 17:41] LABS: PLATELET COMMENT2 NO CLUMPING NOTED; PLATELET ESTIMATE SLT DECREASED (NORMAL)
[2016-07-19] MEDS: methylPREDNISolone NA SUCC 125 MG/2 ML VIAL IVPB SCH ×2 (18:58→22:18)
[2016-07-19] MEDS ORDERED: ALBUTEROL SO4 2.5/IPRATROPIUM 0.5 INH SOL 3 ML VIAL.NEB. NEB ONE (18:59)
[2016-07-19] MEDS ORDERED: oxyCODONE HCL 10 MG SUSTAINED ACTING TABLET ONE (21:46)
[2016-07-19] MEDS: oxyCODONE HCL 20 MG SUSTAINED ACTING TABLET PO SCH (21:48)
[2016-07-19] MEDS ORDERED: PATIENT'S OWN MEDICATION (NON-FORMULARY) (Pregabalin [Lyrica -] 150 MG) PO SCH (22:00)
[2016-07-19] MEDS ORDERED: PREGABALIN 50 MG CAPSULE ONE (22:09)
[2016-07-19] MEDS ORDERED: PREGABALIN 100 MG CAPSULE ONE (22:09)
[2016-07-19] MEDS ORDERED: ATORVASTATIN CA 40 MG TABLET (FP) ONE (22:09)
[2016-07-19] MEDS ORDERED: methylPREDNISolone NA SUCC 125 MG/2 ML VIAL ONE (22:10)
[2016-07-19] MEDS ORDERED: HEPARIN NA (PORCINE) 5,000 UNITS/ML 1ML VIAL ONE (22:10)
[2016-07-19] MEDS: PREGABALIN 100 MG, PREGABALIN 50 MG PO SCH (22:18)
[2016-07-19] MEDS: ATORVASTATIN CA 20 MG TABLET (FP) PO SCH (22:18)
[2016-07-19] MEDS: HEPARIN NA (PORCINE) 5,000 UNITS/ML 1ML VIAL SQ SCH (22:18)
[2016-07-19] MEDS: INSULIN (NOVOLOG) ASPART 100 UNITS/ML 10ML VIAL SQ SCH (22:19)
[2016-07-20 01:02] VITALS: BMI 16.6
[2016-07-20 02:09] LABS: URINE APPEARANCE CLEAR; URINE BILIRUBIN NEGATIVE (NEGATIVE); URINE COLOR YELLOW; URINE GLUCOSE (UA) NEGATIVE (NEGATIVE); URINE KETONE 1+ (NEGATIVE); URINE NITRITE NEGATIVE (NEGATIVE); URINE UROBILINOGEN NEGATIVE E.U./dl (0.2-1.0)
[2016-07-20 02:14] LABS: URINE BLOOD 2+ (NEGATIVE); URINE LEUK ESTERASE 3+ (NEGATIVE); URINE PROTEIN 2+ (NEGATIVE)
[2016-07-20 02:17] LABS: URINE MUCUS RARE; URINE RBC 6 /hpf (0-3); URINE WBC 29 /hpf (3-5)
[2016-07-20] MEDS: ALBUTEROL SO4 2.5/IPRATROPIUM 0.5 INH SOL 3 ML VIAL.NEB. NEB SCH ×2 (07:09)
[2016-07-20] MEDS: oxyCODONE HCL 20 MG SUSTAINED ACTING TABLET PO SCH (07:16)
[2016-07-20] MEDS: INSULIN (NOVOLOG) ASPART 100 UNITS/ML 10ML VIAL SQ SCH ×4 (07:16→21:51)
[2016-07-20] MEDS: PREGABALIN 100 MG, PREGABALIN 50 MG PO SCH ×5 (07:16→21:47)
[2016-07-20 07:54] LABS: BASOPHIL 0.2 % (0-2.0); MCH 30.2 pg (25.7-33.7); MCHC 32.9 g/dl (32.0-36.0); MEAN CELL VOLUME 91.6 fl (80-96); MEAN PLT VOLUME 11.6 fl (7.5-11.1); NEUTROPHILS 68.6 % (42.8-82.8); PLATELET COUNT 96 K/MM3 (134-434); WHITE BLOOD COUNT 7.9 K/mm3 (4.0-10.0)
[2016-07-20 08:23] LABS: ALBUMIN 2.8 g/dl (3.4-5.0); ANION GAP 11 (8-16); CO2 30 mmol/L (21-32); GLUCOSE,RANDOM 76 mg/dL (74-106)
[2016-07-20 08:28] LABS: ALK PHOS 122 U/L (45-117); BILIRUBIN,TOTAL 0.7 mg/dL (0.2-1.0); CREATININE 0.3 mg/dL (0.55-1.02); SGOT/AST 18 U/L (15-37); SGPT/ALT 17 U/L (12-78); TOT PROT 5.2 g/dl (6.4-8.2); TROPONIN I 0.15 ng/ml (0.00-0.05)
[2016-07-20] MEDS ORDERED: PREGABALIN 100 MG CAPSULE ONE ×2 (09:53→18:33)
[2016-07-20] MEDS ORDERED: PREGABALIN 50 MG CAPSULE ONE ×2 (09:53→18:33)
[2016-07-20] MEDS: CLOPIDOGREL BISULFATE 75 MG TABLET (FP) PO SCH (10:13)
[2016-07-20] MEDS: PANTOPRAZOLE 40 MG TABLET (FP) PO SCH (10:13)
--- NOTE | 2016-07-20 10:48 | HP ---
Admitting History and Physical - Admission History of Present Illness: 61-year-old female BIB EMS and daughter with a significant past medical history of lung neoplasm (possible lung ca), thyroid mass dx, migraines, seizures, thyroid mass, COPD, asthma, compression fracture T5, chronic back pain (on pain medication), and presents to the emergency department with altered mental status. As per daughter, the pt has been in a delusional state and has not been communicating with anyone at home. The daughter states that the pt has not been using O2 at home or taking her meds for the past 4 days and has been experiencing multiple episodes of diarrhea for the past 5 days. 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 normalization) Pulmonary: Yes: COPD, Other (QUESTION LUNG CA) Gastrointestinal: Yes: Other (GASTRIC MASS?? PER FAMILY) - Smoking History Smoking history: Current every day smoker Have you smoked in the past 12 months: Yes Aproximately how many cigarettes per day: 10 - Alcohol/Substance Use Hx Alcohol Use: No Home Medications - Allergies Allergies/Adverse Reactions: Allergies Allergy/AdvReac Type Severity Reaction Status Date / Time aspirin Allergy Verified 07/19/16 14:55 ibuprofen AdvReac Verified 07/19/16 14:55 - Home Medications Home Medications: Ambulatory Orders Albuterol Sulfate Inhaler - [Ventolin Hfa Inhaler -] 1 - 2 inh PO Q4H PRN Atorvastatin Calcium 20 mg PO HS 06/14/16 Butalb/Acetaminophen/Caffeine [Ctfmit-Webfhqfp-Hwpt 50-300-40] 1 each PO TID PRN 06/14/16 Clopidogrel Bisulfate [Plavix -] 75 mg PO DAILY 06/14/16 Oxycodone HCl [Oxycodone HCl ER] 20 mg PO TID 06/14/16 Pantoprazole Sodium [Protonix] 40 mg PO DAILY 06/14/16 Prednisone [Deltasone -] 40 mg PO DAILY #8 tablet 06/14/16 Pregabalin [Lyrica -] 150 mg PO TID 06/14/16 Review of Systems - Review of Systems Cardiovascular: reports: Shortness of Breath Respiratory: reports: Cough, SOB on Exertion, Wheezing Gastrointestinal: denies: Abdominal Pain Genitourinary: reports: No Symptoms Musculoskeletal: reports: Back Pain, Muscle Weakness Neurological: reports: Change in LOC, Incoordination, Unsteady Gait, Weakness Physical Examination Vital Signs: Vital Signs Temperature 98.6 F 07/20/16 07:00 Pulse Rate 85 07/20/16 07:00 Respiratory Rate 18 07/20/16 07:00 Blood Pressure 96/59 07/20/16 07:00 O2 Sat by Pulse Oximetry (%) 95 07/20/16 01:12 Cardiovascular: Yes: S1, S2 Respiratory: Yes: Diminished, Rales (AT THE BASES) Gastrointestinal: Yes: Normal Bowel Sounds, Soft. No: Tenderness Edema: No Neurological: Yes: Alert, Oriented Labs: CBC, BMP 07/20/16 05:40 07/20/16 05:40 Problem List - Problems (1) COPD (chronic obstructive pulmonary disease) Assessment/Plan: IV STEROIDS NEBS PULM CONSULT CT OF CHEST Code(s): J44.9 - CHRONIC OBSTRUCTIVE PULMONARY DISEASE, UNSPECIFIED Qualifiers : COPD type: COPD with acute exacerbation Qualified Code(s): J44.1 - Chronic obstructive pulmonary disease with (acute) exacerbation (2) Altered mental status Assessment/Plan: DUE TO ABOVE VS PAIN MEDS Code(s): R41.82 - ALTERED MENTAL STATUS, UNSPECIFIED (3) Elevated troponin Assessment/Plan: FOLLOW TRENDS EKG CARDIO ECHO Code(s): R79.89 - OTHER SPECIFIED ABNORMAL FINDINGS OF BLOOD CHEMISTRY (4) Unexplained weight loss Assessment/Plan: CT SCAN ORDERED ENSURE Code(s): R63.4 - ABNORMAL WEIGHT LOSS
[2016-07-20] MEDS: FUROSEMIDE 40 MG/4 ML INJECTABLE VIAL IVPB SCH (11:52)
[2016-07-20] MEDS: HEPARIN NA (PORCINE) 5,000 UNITS/ML 1ML VIAL SQ SCH ×2 (11:53→21:47)
[2016-07-20] MEDS: oxyCODONE HCL 10 MG SUSTAINED ACTING TABLET PO SCH ×3 (12:22→21:48)
[2016-07-20] MEDS: KCL 10 MEQ IVPB 100 ML IVPB SCH ×2 (12:23→17:49)
[2016-07-20] MEDS: LEVOFLOXACIN 500 MG IVPB 100 ML IVPB SCH (12:24)
[2016-07-20] MEDS ORDERED: methylPREDNISolone NA SUCC 40 MG/1 ML VIAL IVPB SCH (15:00)
--- NOTE | 2016-07-20 15:23 | CON.CARD ---
Consult Consult Specialty:: Cardiology Referred by:: Dr Salgado Reason for Consultation:: elevated troponin - History of Present Illness Chief Complaint: altered mental status History of Present Illness: 61-year-old female history of lung neoplasm (possible lung ca), thyroid mass, migraines, seizures, thyroid mass, COPD, asthma, compression fracture T5, chronic back pain (on pain medication), and presented to the emergency department with altered mental status while off of oxygen. SaO2 by EMS 60%. No chest pain, orthopnea, pnd or edema. Now comfortable without complaints, alert and awake. 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 normalization) Pulmonary: Yes: COPD, Other (QUESTION LUNG CA) Gastrointestinal: Yes: Other (GASTRIC MASS?? PER FAMILY) - Alcohol/Substance Use Hx Alcohol Use: No - Smoking History Smoking history: Current every day smoker Have you smoked in the past 12 months: Yes Aproximately how many cigarettes per day: 10 - Social History Usual Living Arrangement: With Child Home Medications - Allergies Allergies/Adverse Reactions: Allergies Allergy/AdvReac Type Severity Reaction Status Date / Time aspirin Allergy Verified 07/19/16 14:55 ibuprofen AdvReac Verified 07/19/16 14:55 - Home Medications Home Medications: Ambulatory Orders Albuterol Sulfate Inhaler - [Ventolin Hfa Inhaler -] 1 - 2 inh PO Q4H PRN Atorvastatin Calcium 20 mg PO HS 06/14/16 Butalb/Acetaminophen/Caffeine [Eqcyvn-Lpgyehpd-Ziij 50-300-40] 1 each PO TID PRN 06/14/16 Clopidogrel Bisulfate [Plavix -] 75 mg PO DAILY 06/14/16 Oxycodone HCl [Oxycodone HCl ER] 20 mg PO TID 06/14/16 Pantoprazole Sodium [Protonix] 40 mg PO DAILY 06/14/16 Prednisone [Deltasone -] 40 mg PO DAILY #8 tablet 06/14/16 Pregabalin [Lyrica -] 150 mg PO TID 06/14/16 Vital Signs: Vital Signs Temperature 98.2 F 07/20/16 14:58 Pulse Rate 81 07/20/16 14:58 Respiratory Rate 18 07/20/16 14:58 Blood Pressure 108/65 07/20/16 14:58 O2 Sat by Pulse Oximetry (%) 95 07/20/16 01:12 Constitutional: Yes: No Distress, Calm Eyes: Yes: Conjunctiva Clear HENT: Yes: Atraumatic, Normocephalic Neck: Yes: Supple, Trachea Midline Respiratory: Yes: Hyperresonant Gastrointestinal: Yes: Normal Bowel Sounds, Soft Cardiovascular: Yes: Regular Rate and Rhythm JVD: No Carotid Bruit: No PMI: Non-Displaced Heart Sounds: Yes: S1, S2 Extremities: Yes: WNL Edema: No Peripheral Pulses WNL: Yes - Other Data Labs, Other Data: CBC, BMP 07/20/16 05:40 07/20/16 05:40 Troponin, BNP 07/20/16 05:40 Troponin I 0.15 H B-Natriuretic Peptide 2127.05 H Troponin, BNP 07/20/16 05:40 Troponin I 0.15 H B-Natriuretic Peptide 2127.05 H None in chart. Echo: Report Reviewed (03/11/16 nlef mild mr) Imaging - Results Chest X-ray: Report Reviewed (increased markings. no chf.) Problem List - Problems (1) Elevated troponin Assessment/Plan: Due to hypoxia and demand ischemia. Doubt unstable coronary syndrome. Elevated bnp is likely due to pulmonary hypertension from lung disease. There is no evidence of chf on exam or cxr. Poor candidate for ischemia workup. no beta silva due to lung disease. add baby asa to plavix. will follow. Code(s): R79.89 - OTHER SPECIFIED ABNORMAL FINDINGS OF BLOOD CHEMISTRY
[2016-07-20 15:54] LABS: TROPONIN I 0.13 ng/ml (0.00-0.05)
--- NOTE | 2016-07-20 17:09 | CON.PULM ---
Consult Consult Specialty:: PULM/CCM Referred by:: DAYSI Reason for Consultation:: SOB - History of Present Illness Chief Complaint: AMS History of Present Illness: 61 F, thyroid mass, migraines, seizures, COPD, asthma, compression fracture T5, chronic back pain, and listed history of lung CA. The details of the lung CA are very obscure and cannot be verified. CT imaging 03/2016 here at [facility] revealed a right hilar lynph node measuring 1.5 cm x 0.7 cm. There is a focal area of consolidation in the Lingula and scattered areas of atelectasis. As per the record, the patient ass been in a "delusional state" and has not using her home O2 nor taking her medications. Apparently she has also been having diarrhea. Mental status has been improving since arrival to the hospital, but there still is confusion. No travel history or sick contacts. No documented hemoptysis. CXR: Chronic interstitial changes / no acute process when compared to previous imaging. 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 normalization) Pulmonary: Yes: COPD, Other (QUESTION LUNG CA) Gastrointestinal: Yes: Other (GASTRIC MASS?? PER FAMILY) - Alcohol/Substance Use Hx Alcohol Use: No - Smoking History Smoking history: Current every day smoker Have you smoked in the past 12 months: Yes Aproximately how many cigarettes per day: 10 - Social History Usual Living Arrangement: With Child Home Medications - Allergies Allergies/Adverse Reactions: Allergies Allergy/AdvReac Type Severity Reaction Status Date / Time aspirin Allergy Verified 07/19/16 14:55 ibuprofen AdvReac Verified 07/19/16 14:55 - Home Medications Home Medications: Ambulatory Orders Albuterol Sulfate Inhaler - [Ventolin Hfa Inhaler -] 1 - 2 inh PO Q4H PRN Atorvastatin Calcium 20 mg PO HS 06/14/16 Butalb/Acetaminophen/Caffeine [Qongor-Baqfrpxs-Qfsb 50-300-40] 1 each PO TID PRN 06/14/16 Clopidogrel Bisulfate [Plavix -] 75 mg PO DAILY 06/14/16 Oxycodone HCl [Oxycodone HCl ER] 20 mg PO TID 06/14/16 Pantoprazole Sodium [Protonix] 40 mg PO DAILY 06/14/16 Prednisone [Deltasone -] 40 mg PO DAILY #8 tablet 06/14/16 Pregabalin [Lyrica -] 150 mg PO TID 06/14/16 Review of Systems - Review of Systems Constitutional: reports: Lethargy, Malaise. denies: Chills, Fever, Night Sweats Eyes: reports: No Symptoms HENT: reports: No Symptoms Neck: reports: Swollen Glands Cardiovascular: denies: Chest Pain, Edema, Palpitations, Shortness of Breath Respiratory: reports: Cough. denies: Hemoptysis, Orthopnea, SOB, SOB on Exertion, Wheezing Gastrointestinal: reports: No Symptoms Genitourinary: reports: No Symptoms Breasts: reports: No Symptoms Reported Musculoskeletal: reports: No Symptoms Integumentary: reports: No Symptoms Neurological: reports: Change in LOC, Change in Speech, Confusion Endocrine: reports: No Symptoms Hematology/Lymphatic: reports: No Symptoms Psychiatric: reports: No Symptoms Physical Exam Vital Sings: Vital Signs Temperature 98.2 F 07/20/16 14:58 Pulse Rate 81 07/20/16 14:58 Respiratory Rate 18 07/20/16 14:58 Blood Pressure 108/65 07/20/16 14:58 O2 Sat by Pulse Oximetry (%) 97 07/20/16 10:00 Constitutional: Yes: No Distress, Thin Eyes: Yes: Conjunctiva Clear, EOM Intact HENT: Yes: Atraumatic, Normocephalic Neck: Yes: Supple, Trachea Midline Cardiovascular: Yes: Regular Rate and Rhythm Respiratory: No: Accessory Muscle Use, Rales, Rhonchi, Stridor, Tachypnea, Wheezes ...Inspection: Yes: WNL ...Clubbing: No Gastrointestinal: Yes: Normal Bowel Sounds, Soft Musculoskeletal: Yes: WNL Extremities: Yes: WNL Edema: No Peripheral Pulses WNL: Yes Integumentary: Yes: WNL Neurological: Yes: Confusion Psychiatric: Yes: Alert Labs: CBC, BMP 07/20/16 05:40 07/20/16 05:40 Imaging - Results Chest X-ray: Report Reviewed, Image Reviewed Problem List - Problems (1) COPD (chronic obstructive pulmonary disease) Code(s): J44.9 - CHRONIC OBSTRUCTIVE PULMONARY DISEASE, UNSPECIFIED Qualifiers : COPD type: COPD with acute exacerbation Qualified Code(s): J44.1 - Chronic obstructive pulmonary disease with (acute) exacerbation (2) Polycythemia Code(s): D75.1 - SECONDARY POLYCYTHEMIA (3) Acute bronchitis Code(s): J20.9 - ACUTE BRONCHITIS, UNSPECIFIED Qualifiers: Bronchitis organism: unspecified organism Qualified Code(s): J20.9 - Acute bronchitis, unspecified (4) Altered mental status Code(s): R41.82 - ALTERED MENTAL STATUS, UNSPECIFIED (5) Chronic back pain Code(s): M54.9 - DORSALGIA, UNSPECIFIED G89.29 - OTHER CHRONIC PAIN (6) Emphysema of lung Code(s): J43.9 - EMPHYSEMA, UNSPECIFIED Qualifiers: Emphysema type: panlobular Qualified Code(s): J43.1 - Panlobular emphysema (7) Hypertension Code(s): I10 - ESSENTIAL (PRIMARY) HYPERTENSION (8) Thyroid mass Code(s): E07.9 - DISORDER OF THYROID, UNSPECIFIED (9) Thyroid nodule Code(s): E04.1 - NONTOXIC SINGLE THYROID NODULE Assessment/Plan Will need to more details about the history of "lung CA". The patient was seen by our service in 02/2016 and there was no history of Lung CA at that time. Fall precautions O2 as needed BD TX as needed If remains afebrile -> consider D/C ABX Noted Medrol Will follow Thank you. Dr Doll
[2016-07-20] MEDS: methylPREDNISolone NA SUCC 40 MG/1 ML VIAL IVPB SCH (17:49)
[2016-07-20] MEDS: ATORVASTATIN CA 20 MG TABLET (FP) PO SCH (21:47)
[2016-07-21] MEDS ORDERED: PREGABALIN 100 MG CAPSULE ONE (05:47)
[2016-07-21] MEDS ORDERED: PREGABALIN 50 MG CAPSULE ONE (05:47)
[2016-07-21] MEDS: methylPREDNISolone NA SUCC 40 MG/1 ML VIAL IVPB SCH (05:48)
[2016-07-21] MEDS: PREGABALIN 100 MG, PREGABALIN 50 MG PO SCH ×2 (05:48→14:50)
[2016-07-21] MEDS: oxyCODONE HCL 10 MG SUSTAINED ACTING TABLET PO SCH ×2 (05:49→14:50)
[2016-07-21] MEDS: INSULIN (NOVOLOG) ASPART 100 UNITS/ML 10ML VIAL SQ SCH ×2 (06:18→11:07)
[2016-07-21 08:23] LABS: ALBUMIN 2.8 g/dl (3.4-5.0); ANION GAP 10 (8-16); BILIRUBIN,TOTAL 0.9 mg/dL (0.2-1.0); CALCIUM 9.1 mg/dL (8.5-10.1); CO2 31 mmol/L (21-32); COCKROFT - GAULT 129.4805; CREATININE 0.3 mg/dL (0.55-1.02); GLUCOSE,RANDOM 84 mg/dL (74-106); SGOT/AST 23 U/L (15-37); SGPT/ALT 24 U/L (12-78); TOT PROT 5.2 g/dl (6.4-8.2)
[2016-07-21 08:24] LABS: ALK PHOS 121 U/L (45-117); BASOPHIL 0.1 % (0-2.0); EOSINOPHIL 0.1 % (0-4.5); MCH 30.3 pg (25.7-33.7); MCHC 33.2 g/dl (32.0-36.0); MEAN CELL VOLUME 91.1 fl (80-96); MEAN PLT VOLUME 11.4 fl (7.5-11.1); NEUTROPHILS 73.2 % (42.8-82.8); RDW 15.5 % (11.6-15.6)
--- NOTE | 2016-07-21 09:31 | PN ---
Progress Note, Physician History of Present Illness: PULMONARY AWAKE,ALERT,- CONFUSION,NAD - Current Medication List Current Medications: Active Medications Albuterol/Ipratropium (Duoneb -) 1 amp NEB QIDR [facility] Last Admin: 07/20/16 07:09 Dose: 1 amp Atorvastatin Calcium (Lipitor -) 20 mg PO HS [facility] Last Admin: 07/20/16 21:47 Dose: 20 mg Clopidogrel Bisulfate (Plavix -) 75 mg PO DAILY [facility] Last Admin: 07/20/16 10:13 Dose: 75 mg Furosemide (Lasix Injection -) 40 mg IVPB DAILY [facility] Last Admin: 07/20/16 11:52 Dose: Not Given Heparin Sodium (Porcine) (Heparin -) 5,000 unit SQ BID [facility] Last Admin: 07/20/16 21:47 Dose: Not Given Levofloxacin (Levaquin 500 Mg Premixed Ivpb -) 100 mls @ 100 mls/hr IVPB DAILY [facility] Last Admin: 07/20/16 12:24 Dose: 100 mls/hr Insulin Aspart (Novolog Vial) 0 units SQ ACHS [facility] PRN Reason: Protocol Last Admin: 07/21/16 06:18 Dose: Not Given Methylprednisolone Sodium Succinate (Solu-Medrol -) 40 mg IVPB Q12H [facility] Last Admin: 07/21/16 05:48 Dose: 40 mg Oxycodone HCl (Oxycontin -) 20 mg PO TID [facility] Last Admin: 07/21/16 05:49 Dose: 20 mg Pantoprazole Sodium (Protonix -) 40 mg PO DAILY [facility] Last Admin: 07/20/16 10:13 Dose: 40 mg Pregabalin 100 mg/ Pregabalin (50 mg) 150 mg PO TID [facility] Last Admin: 07/21/16 05:48 Dose: 150 mg - Objective Vital Signs: Vital Signs Temperature 98.3 F 07/21/16 06:00 Pulse Rate 75 07/21/16 06:00 Respiratory Rate 20 07/21/16 06:00 Blood Pressure 112/50 07/21/16 06:00 O2 Sat by Pulse Oximetry (%) 98 07/21/16 06:00 Constitutional: Yes: Calm, Thin Eyes: Yes: WNL HENT: Yes: WNL Neck: Yes: WNL Cardiovascular: Yes: Regular Rate and Rhythm, S1, S2 Respiratory: Yes: Rales (CRACKLES R 1/3 UP) Labs: CBC, BMP 07/21/16 07:30 07/21/16 07:30 Assessment/Plan Problem List - Problems (1) COPD (chronic obstructive pulmonary disease) Code(s): J44.9 - CHRONIC OBSTRUCTIVE PULMONARY DISEASE, UNSPECIFIED Qualifiers : COPD type: COPD with acute exacerbation Qualified Code(s): J44.1 - Chronic obstructive pulmonary disease with (acute) exacerbation (2) Polycythemia Code(s): D75.1 - SECONDARY POLYCYTHEMIA (3) Acute bronchitis Code(s): J20.9 - ACUTE BRONCHITIS, UNSPECIFIED Qualifiers: Bronchitis organism: unspecified organism Qualified Code(s): J20.9 - Acute bronchitis, unspecified (4) Altered mental status Code(s): R41.82 - ALTERED MENTAL STATUS, UNSPECIFIED (5) Chronic back pain Code(s): M54.9 - DORSALGIA, UNSPECIFIED G89.29 - OTHER CHRONIC PAIN (6) Emphysema of lung Code(s): J43.9 - EMPHYSEMA, UNSPECIFIED Qualifiers: Emphysema type: panlobular Qualified Code(s): J43.1 - Panlobular emphysema (7) Hypertension Code(s): I10 - ESSENTIAL (PRIMARY) HYPERTENSION (8) Thyroid mass Code(s): E07.9 - DISORDER OF THYROID, UNSPECIFIED (9) Thyroid nodule Code(s): E04.1 - NONTOXIC SINGLE THYROID NODULE Assessment/Plan Fall precautions O2 as needed BD TX If remains afebrile -> consider D/C ABX Medrol DR VELARDE
--- NOTE | 2016-07-21 09:57 | EKG ---
Test Reason : Blood Pressure : / mmHG Vent. Rate : 115 BPM Atrial Rate : 115 BPM P-R Int : 152 ms QRS Dur : 072 ms QT Int : 306 ms P-R-T Axes : 082 077 066 degrees QTc Int : 423 ms SINUS TACHYCARDIA WITH PREMATURE SUPRAVENTRICULAR COMPLEXES BIATRIAL ENLARGEMENT ABNORMAL ECG WHEN COMPARED WITH ECG OF 08-MAR-2016 23:53, ST NO LONGER ELEVATED IN ANTERIOR LEADS Confirmed by TIMOTHY PEOPLES, KATYA ([id number]) on 07/21/2016 9:56:42 AM Referred By: Confirmed By:KATYA AGUIRRE MD
[2016-07-21] MEDS: LEVOFLOXACIN 500 MG IVPB 100 ML IVPB SCH (10:01)
[2016-07-21] MEDS: CLOPIDOGREL BISULFATE 75 MG TABLET (FP) PO SCH (10:03)
[2016-07-21 10:29] LABS: TROPONIN I 0.07 ng/ml (0.00-0.05)
[2016-07-21] MEDS: HEPARIN NA (PORCINE) 5,000 UNITS/ML 1ML VIAL SQ SCH (11:07)
[2016-07-21] MEDS: PANTOPRAZOLE 40 MG TABLET (FP) PO SCH (11:07)
[2016-07-21] MEDS: FUROSEMIDE 40 MG/4 ML INJECTABLE VIAL IVPB SCH (11:07)
--- NOTE | 2016-07-21 12:10 | PN ---
Progress Note, Physician History of Present Illness: FEELS BETTER NO CP OR SOB - Current Medication List Current Medications: Active Medications Albuterol/Ipratropium (Duoneb -) 1 amp NEB QIDR [facility] Last Admin: 07/20/16 07:09 Dose: 1 amp Atorvastatin Calcium (Lipitor -) 20 mg PO HS [facility] Last Admin: 07/20/16 21:47 Dose: 20 mg Clopidogrel Bisulfate (Plavix -) 75 mg PO DAILY [facility] Last Admin: 07/21/16 10:03 Dose: Not Given Furosemide (Lasix Injection -) 40 mg IVPB DAILY [facility] Last Admin: 07/21/16 11:07 Dose: Not Given Heparin Sodium (Porcine) (Heparin -) 5,000 unit SQ BID [facility] Last Admin: 07/21/16 11:07 Dose: Not Given Levofloxacin (Levaquin 500 Mg Premixed Ivpb -) 100 mls @ 100 mls/hr IVPB DAILY [facility] Last Admin: 07/21/16 10:01 Dose: 100 mls/hr Insulin Aspart (Novolog Vial) 0 units SQ ACHS [facility] PRN Reason: Protocol Last Admin: 07/21/16 11:07 Dose: Not Given Methylprednisolone Sodium Succinate (Solu-Medrol -) 40 mg IVPB Q12H [facility] Last Admin: 07/21/16 05:48 Dose: 40 mg Oxycodone HCl (Oxycontin -) 20 mg PO TID [facility] Last Admin: 07/21/16 05:49 Dose: 20 mg Pantoprazole Sodium (Protonix -) 40 mg PO DAILY [facility] Last Admin: 07/21/16 11:07 Dose: Not Given Pregabalin 100 mg/ Pregabalin (50 mg) 150 mg PO TID [facility] Last Admin: 07/21/16 05:48 Dose: 150 mg - Objective Vital Signs: Vital Signs Temperature 98.3 F 07/21/16 06:00 Pulse Rate 75 07/21/16 06:00 Respiratory Rate 20 07/21/16 06:00 Blood Pressure 112/50 07/21/16 06:00 O2 Sat by Pulse Oximetry (%) 98 07/21/16 06:00 Cardiovascular: Yes: S1, S2 Respiratory: Yes: Diminished, Other (IMPROVED). No: Rales, Wheezes Gastrointestinal: Yes: Normal Bowel Sounds, Soft Labs: CBC, BMP 07/21/16 07:30 07/21/16 07:30 Problem List - Problems (1) COPD (chronic obstructive pulmonary disease) Assessment/Plan: IV STEROIDS TAPER NEBS PULM CONSULT NOTED CT OF CHEST NOTED --NO MASSES Code(s): J44.9 - CHRONIC OBSTRUCTIVE PULMONARY DISEASE, UNSPECIFIED Qualifiers : COPD type: COPD with acute exacerbation Qualified Code(s): J44.1 - Chronic obstructive pulmonary disease with (acute) exacerbation (2) Altered mental status Assessment/Plan: IMPROVED DUE TO ABOVE----COPD EXACERBATION VS PAIN MEDS--COMPLIANCE--DOSING Code(s): R41.82 - ALTERED MENTAL STATUS, UNSPECIFIED (3) Elevated troponin Assessment/Plan: FOLLOW TRENDS EKG CARDIO ECHO Troponin, BNP 07/20/16 07/21/16 15:20 07:30 Troponin I 0.13 H 0.07 H Code(s): R79.89 - OTHER SPECIFIED ABNORMAL FINDINGS OF BLOOD CHEMISTRY (4) Unexplained weight loss Assessment/Plan: CT SCAN ORDERED ENSURE Code(s): R63.4 - ABNORMAL WEIGHT LOSS (5) UTI (urinary tract infection) Assessment/Plan: LEVAQUIN CULTURE Code(s): N39.0 - URINARY TRACT INFECTION, SITE NOT SPECIFIED Assessment/Plan Encephalopathy--due to copd--metabolic state
[2016-07-21 12:29] LABS: PLATELET COUNT 91 K/MM3 (134-434); PLATELET ESTIMATE DECREASED (NORMAL)
[2016-07-21 16:11] VITALS: BP 120/74; PULSE 72; TEMP 98.6
[2016-07-21] MEDS ORDERED: methylPREDNISolone NA SUCC 40 MG/1 ML VIAL IVPB SCH (22:00)
== END 2016-07-21 15:11 | disposition left against medical advice (07) | DRG 190 ==
LOC: JER 14:33 → JERBED 16:51 → UNDOADMIN 17:10 → J4W 23:45
PROVIDERS: ADMIT Family Medicine; ATTEND Family Medicine
DX: J44.1 Chronic obstructive pulmonary disease with (acute) exacerbation (principal); G93.41 Metabolic encephalopathy; Z68.1 Body mass index [BMI] 19.9 or less, adult; R64 Cachexia; N39.0 Urinary tract infection, site not specified; F17.210 Nicotine dependence, cigarettes, uncomplicated; R41.82 Altered mental status, unspecified; J20.9 Acute bronchitis, unspecified; M54.9 Dorsalgia, unspecified; R63.4 Abnormal weight loss; I10 Essential (primary) hypertension
CPT/HCPCS: 36415; 71010-TC; 71260-TC; 80053; 81003; 81015; 82550; 83036; 83605; 83880; 84484; 85025; 87040; 87086; 87186; 93005; 93010; 94640; 99285-25

== ENCOUNTER 2016-09-09 00:48 | Emergency (ER) | payer MEDICARE, OTHER ==
--- NOTE | 2016-09-09 00:59 | PDOC ---
Attending Attestation - Resident Resident Name: Saud Dhillon - HPI HPI: 09/09/16 00:53 61 yo female BIBA for diff breathing,long h/o copd oxygen dependence. Pt 's symptosm worsened today -also fell 2 days ago and had radiograph done at [facility] but still has c/o bone pain
[2016-09-09 01:04] VITALS: BP 112/67; PULSE 104; TEMP 98.6; BMI 17.7
[2016-09-09] MEDS ORDERED: ACETAMINOPHEN 1000 MG/100 ML VIAL (NON FORMULARY) IVPB ONE (01:12)
[2016-09-09 01:22] LABS: MCH 30.4 pg (25.7-33.7); MCHC 32.7 g/dl (32.0-36.0); MEAN CELL VOLUME 93.2 fl (80-96); RDW 19.6 % (11.6-15.6); WHITE BLOOD COUNT 6.8 K/mm3 (4.0-10.0)
[2016-09-09] MEDS ORDERED: ACETAMINOPHEN INJECTION 100 ML IVPB ONE (01:22)
--- NOTE | 2016-09-09 01:25 | PDOC ---
History of Present Illness - General Stated Complaint: DIFF BREATHING Time Seen by Provider: 09/09/16 00:55 - History of Present Illness Initial Comments: 09/09/16 01:19 CHIEF COMPLAINT: sob HISTORY OF PRESENT ILLNESS: 61 yo F with hx of COPD, asthma, lung neoplasm ( possible lung ca), thyroid mass, migraines, seizures, compression fracture to T5 , chronic back pain presents to the emergency department with SOB and left hip pain today. Patient reports that she fell four days ago and was seen at [facility] where she was told she did not have any fractures but did have "fluids in her lungs". She saw her nurse practitioner on Thursday and was given a script for an MRI. PAST MEDICAL HISTORY: Denies past medical history FAMILY HISTORY: Denies SOCIAL HISTORY: Denies tobacco, alcohol, illicit drug use. SURGICAL HISTORY: Denies ALLERGIES: No known drug allergies REVIEW OF SYSTEMS General/Constitutional: Denies fever or chills. Denies weakness, weight change. HEENT: Denies change in vision. Denies ear pain or discharge. Denies sore throat. Cardiovascular: Denies chest pain or shortness of breath. Respiratory: Denies cough, wheezing, or hemoptysis. Gastrointestinal: Denies nausea, vomiting, diarrhea or constipation. Denies rectal bleeding. Genitourinary: Denies dysuria, frequency, or change in urination. Musculoskeletal: Denies joint or muscle swelling or pain. Denies neck or back pain. Skin and breasts: Denies rash or easy bruising. Neurologic: Denies headache, vertigo, loss of consciousness, or loss of sensation. PHYSICAL EXAM General Appearance: Well-appearing, appropriately dressed. No apparent distress. HEENT: EOMI, PERRLA. No conjunctival pallor. No photophobia, scleral icterus. Neck: Supple. Trachea midline. No tenderness, rigidity, carotid bruit, stridor , lymphadenopathy, or thyromegaly. Respiratory/Chest: Lungs CTAB. No shortness of breath, chest tenderness, respiratory distress, accessory muscle use. No crackles, rales, rhonchi, stridor , wheezing, dullness Cardiovascular: RRR. S1, S2. No JVD, murmur, bradycardia, tachycardia. Vascular Pulses: Dorsalis-Pedis (R): 2+, Dorsalis-Pedis (L): 2+ Gastrointestinal/Abdominal: Normal bowel sounds. Abdomen soft, non-distended. No tenderness or rebound tenderness. No organomegaly, pulsatile mass, guarding , hernia, hepatomegaly, splenomegaly. Lymphatic: No adenopathy, tenderness. Musculoskeletal/Extremities: Normal inspection. FROM of all extremities, normal capillary refill. Pelvis Stable. No CVA tenderness. No tenderness to extremities, pedal edema, swelling, erythema or deformity. Integumentary: Appropriate color, dry, warm. 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 Fully oriented, alert. Appropriate mood/affect. Motor strength 5/5. No appreciable EOM palsy, facial droop or sensory deficit. Past History - Past Medical History Allergies/Adverse Reactions: Allergies Allergy/AdvReac Type Severity Reaction Status Date / Time aspirin Allergy Verified 09/09/16 01:04 ibuprofen AdvReac Verified 09/09/16 01:04 Home Medications: Ambulatory Orders Albuterol Sulfate Inhaler - [Ventolin Hfa Inhaler -] 1 - 2 inh PO Q4H PRN Atorvastatin Calcium 20 mg PO HS 06/14/16 Butalb/Acetaminophen/Caffeine [Pmynwf-Yyyxbsmf-Hbpx 50-300-40] 1 each PO TID PRN 06/14/16 Clopidogrel Bisulfate [Plavix -] 75 mg PO DAILY 06/14/16 Oxycodone HCl [Oxycodone HCl ER] 20 mg PO TID 06/14/16 Pantoprazole Sodium [Protonix] 40 mg PO DAILY 06/14/16 Prednisone [Deltasone -] 40 mg PO DAILY #8 tablet 06/14/16 Pregabalin [Lyrica -] 150 mg PO TID 06/14/16 Anemia: No Asthma: Yes Cancer: No Cardiac Disorders: No CVA: No COPD: Yes CHF: No Dementia: No Diabetes: No GI Disorders: No Disorders: No HTN: No Hypercholesterolemia: No Liver Disease: No Seizures: No Thyroid Disease: No - Surgical History Abdominal Surgery: No Appendectomy: No Cardiac Surgery: No Cholecystectomy: No Lung Surgery: No Neurologic Surgery: No Orthopedic Surgery: No - Immunization History Immunization Up to Date: No - Psycho/Social/Smoking Cessation Hx Anxiety: No Suicidal Ideation: No (unable to assess) Smoking Status: Yes Smoking History: Current every day smoker Have you smoked in the past 12 months: Yes Number of Cigarettes Smoked Daily: 10 Information on smoking cessation initiated: Yes 'Breaking Loose' booklet given: 04/26/15 Hx Alcohol Use: No Drug/Substance Use Hx: No Substance Use Type: None Hx Substance Use Treatment: No *Physical Exam - Vital Signs Last Vital Signs Temp Pulse Resp BP Pulse Ox 98.6 F 104 H 22 112/67 94 L 09/09/16 01:01 09/09/16 01:01 09/09/16 01:01 09/09/16 01:01 09/09/16 01:01 ED Treatment Course - LABORATORY CBC & Chemistry Diagram: 09/09/16 01:10 09/09/16 01:10 - RADIOLOGY Radiology Studies Ordered: Category Date Time Status CHEST PA & LAT [RAD] Stat Radiology 09/09/16 01:04 Ordered Medical Decision Making - Medical Decision Making 09/09/16 01:25 61 yo F with hx of COPD, asthma, lung neoplasm (possible lung ca), thyroid mass , migraines, seizures, compression fracture to T5, chronic back pain presents to the emergency department with SOB and left hip pain today s/p fall four days ago. VS notable for HR 107 -CBC, CMP, D-dimer, BNP, card profile 09/09/16 03:16 D-dimer 556 -CTA r/o PE *DC/Admit/Observation/Transfer Diagnosis at time of Disposition: Thyroid nodule, Shortness of breath - Discharge Dispostion Disposition: HOME Condition at time of disposition: Stable Admit: No - Referrals Referrals: Jude Giang [Primary Care Provider] - - Patient Instructions Printed Discharge Instructions: DI for Shortness of Breath Additional Instructions: Please follow up with your primary care doctor by the end of the week. You need to get the biopsy for your thyroid for further evaluation. If you experience any chest pain, sudden headache, shortness of breath, fever, vomiting , or any new or worsening symptoms, please return to the ER.
[2016-09-09 01:59] LABS: ALBUMIN 3.5 g/dl (3.4-5.0); ANION GAP 8 (8-16); BILIRUBIN,TOTAL 0.5 mg/dL (0.2-1.0); CALCIUM 8.5 mg/dL (8.5-10.1); CO2 27 mmol/L (21-32); CREATININE 0.3 mg/dL (0.55-1.02); GLUCOSE,RANDOM 109 mg/dL (74-106); SGPT/ALT 14 U/L (12-78); TOT PROT 6.6 g/dl (6.4-8.2)
[2016-09-09 02:01] LABS: ALK PHOS 131 U/L (45-117); TROPONIN I < 0.02 ng/ml (0.00-0.05)
[2016-09-09 02:03] LABS: SGOT/AST 21 U/L (15-37)
[2016-09-09 02:10] LABS: PLATELET COUNT 85 K/MM3 (134-434)
[2016-09-09 02:12] LABS: PLATELET COMMENT2 NO CLUMPING NOTED; PLATELET COMMENT3 NO CLOTTING DETECTED
[2016-09-09 02:13] LABS: ANISOCYTOSIS 1+; MICROCYTOSIS 1+; PLATELET ESTIMATE MOD DECREASED (NORMAL)
[2016-09-09 02:47] LABS: URINE APPEARANCE CLEAR; URINE BILIRUBIN NEGATIVE (NEGATIVE); URINE COLOR STRAW; URINE GLUCOSE (UA) NEGATIVE (NEGATIVE); URINE KETONE NEGATIVE (NEGATIVE); URINE NITRITE NEGATIVE (NEGATIVE); URINE PROTEIN NEGATIVE (NEGATIVE); URINE UROBILINOGEN NEGATIVE mg/dL (0.2-1.0)
[2016-09-09 03:04] LABS: URINE BLOOD 2+ (NEGATIVE); URINE LEUK ESTERASE 2+ (NEGATIVE)
[2016-09-09 03:05] LABS: URINE RBC 8 /hpf (0-3); URINE WBC 10 /hpf (3-5)
--- NOTE | 2016-09-09 16:22 | EKG ---
Test Reason : Blood Pressure : / mmHG Vent. Rate : 097 BPM Atrial Rate : 097 BPM P-R Int : 142 ms QRS Dur : 070 ms QT Int : 346 ms P-R-T Axes : 069 048 062 degrees QTc Int : 439 ms NORMAL SINUS RHYTHM NORMAL ECG WHEN COMPARED WITH ECG OF 19-JUL-2016 17:33, PREMATURE SUPRAVENTRICULAR COMPLEXES ARE NO LONGER PRESENT T WAVE AMPLITUDE HAS DECREASED IN LATERAL LEADS Confirmed by BRYSON MEANS MD ([id number]) on 09/09/2016 4:22:04 PM Referred By: Confirmed By:BRYSON MEANS MD
== END 2016-09-09 04:16 | disposition home or self-care (01) ==
LOC: JER 00:48
PROC: 3E033NZ Introduction of Analgesics, Hypnotics, Sedatives into Peripheral Vein, Percutaneous Approach (ICD-10-PCS; principal; 2016-09-09)
DX: E04.1 Nontoxic single thyroid nodule (principal); J44.9 Chronic obstructive pulmonary disease, unspecified; J45.909 Unspecified asthma, uncomplicated; R91.8 Other nonspecific abnormal finding of lung field; G43.909 Migraine, unspecified, not intractable, without status migrainosus; G40.909 Epilepsy, unspecified, not intractable, without status epilepticus
CPT/HCPCS: 36415; 71020-TC; 71275-TC; 80053; 81003; 81015; 82550; 83880; 84484; 85025; 85379; 93005; 93010; 96374; 99281-25